=== PATIENT | male | born 1955 | race Caucasian/White ===

== ENCOUNTER 2025-01-14 14:09 | Emergency (ER) | payer MEDICARE, SELFPAY ==
[2025-01-14 14:09] VITALS: BP 124/85; PULSE 66; RESP 16; TEMP 35.7; O2SAT 100; BMI 28.8
--- NOTE | 2025-01-14 14:25 | EDS_ITS ---
HPI History of Present Illness Chief Complaint: Upper Extremity Injury Narrative Narrative: Patient is a 69-year-old male with no known significant past medical history who presents to the emergency department chief complaint of right hand injury. He states that he was splitting wood and his hand got caught between 2 pieces of wood and notes that he went to urgent care and they sent him here as there was concern for a tendon injury. Patient states that he had gloves on and states t hat his hand was caught between 2 pieces of wood did not come in contact with metal. He states he is unsure when his last tetanus shot was. PFSH PFSH Home Medications ?Medication ?Instructions ?Recorded ?Last Taken ?Type meclizine 25 mg tablet 25 mg PO TID PRN PRN Dizzine ss #20 04/16/14 Unknown Rx tabs cephalexin 500 mg capsule 500 mg PO BID #14 caps 01/14 Unknown Rx ondansetron 4 mg disintegrating 4 mg PO Q6H PRN nausea and 01/14/25 Unknown Rx tablet vomiting #20 tabs oxycodone-acetaminophen 5 mg-325 1 tab PO Q6H PRN pain 2 days #8 01/14/25 Unknown Rx mg tablet (Endocet) tabs Allergy/AdvReac Type Severity Reaction Status Date / Time No Known Allergies Allergy Verified 04/16/14 11:44 Social History Smoking Status: Never smoker ROS ROS ED ROS Narrative Neurological: Denies any numbness, tingling Musculoskeletal: Complains of wound to the right hand as noted above and inability to flex his pinky EXAM Physical Exam Narrative Exam Narrative: General: Patient sitting at the end of the bed rest comfortably did not appear to be in acute distress Head: Atraumatic, normocephalic Eyes: PERRL bilaterally, EOMI bilateral, no conjunctival injection noted Neck: Soft, supple, trachea midline Cardiovascular: Regular rate Musculoskeletal: Patient able to flex his right pinky finger at the proximal interphalangeal joint however he is unable to flex the distal interphalangeal joint Extremities: Radial pulses +2/4 in the right upper extremity Neurological: Patient follow commands knew that he was at [facility] with sensation grossly intact in the median, ulnar and radial nerve distribution when compared bilaterally Skin: Warm, dry, patient has a complex laceration noted in between his 4th and 5th finger on the right side no active bleeding noted Const Vital Signs: 01/14/25 14:09 Temperature 96.3 F L Temperature Source Temporal Pulse Rate 66 Respiratory Rate 16 Blood Pressure 124/85 H Blood Pressure Mean 98 Pulse Ox 100 Oxygen Delivery Method Room Air MDM MDM MDM Narrative Medical decision making narrative: Patient is a 69-year-old male who presents to the emergency department chief complaint of right hand injury. On the differential diagnose includes but not limited to flexor tendon injury, hand laceration, open fracture. Once workup is obtained and reviewed he will be reevaluated. Patient's tetanus shot will be updated. Patient's x-ray of the hand reviewed myself and by radiology showed acute comminuted displaced fracture in the waist of the proximal fifth phalanx with soft tissue swelling and some tenderness in emphysema. Old healed fifth metacarpal and old ununited ulnar styloid fracture. No other acute fractures noted polyarticular arthrosis noted. Patient had laceration repaired see procedure note for separate details digital block was performed he tolerated this well. His finger was also reduced and was placed in a splint he remained neurovascular intact afterwards. I reached out to Dr. [facility] orthopedics and he states that he can see the patient first thing this week. Patient was given 2 g Ancef as well. Patient come back really room and told me that he cannot follow-up with [facility] orthoped[facility] as this is an insurance issue I reach out to [facility] for close follow-up and they state that since the patient has not followed up with them they need to call on Wednesday for an appointment. I discussed this with the patient he states that he will have contact his primary care physician and he will also have them help him get follow-up in the outpatient setting I state that he could still follow-up with [facility] if need be is there anywhere of his case. He will be placed on Keflex for as well. He is encouraged return with worsening symptoms or any concerns. He is vies keep the area dry and clean. Patient was also given prescriptions for Endocet and Zofran for severe pain he is also advised to rotate Tylenol and ibuprofen [id number] for mild to moderate pain. All question concerns answered is discharged home in stable condition Procedure note Procedure name: Laceration repair Indication: Reduce risk of infection Location: Complex laceration between his 4th and 5th finger on the right hand measuring approximately 3 cm Preprocedure diagnosis: Laceration Postprocedure diagnosis: Repaired laceration Informed consent was obtained prior to procedure started. Procedure: The appropriate timeout was taken. The area was prepped and draped in usual sterile fashion. Local anesthesia was achieved using 3 cc of lidocaine 1% without epinephrine digital block. Wound was copiously irrigated. 5 4-0 Ethilon interrupted sutures were placed. Estimated blood loss was less than 0.5 mL. Dressing was applied to the area and anticipatory guidance, as well as standard postprocedure care was explained. Return precautions are given. Patient Toller procedure well without any complications. Follow-up visit for suture removal and evaluation of laceration. Discharge Plan Triage Chief Complaint: Upper Extremity Injury ED Provider: Jono Guillen Dx/Rx/DC Orders Clinical Impression: Open displaced fracture of phalanx of right little finger, Complicated laceration of hand Prescriptions: New ondansetron 4 mg tablet,disintegrating 4 mg PO Q6H PRN (Reason: nausea and vomiting) Qty: 20 0RF oxycodone-acetaminophen [Endocet] 5-325 mg tablet 1 tab PO Q6H PRN (Reason: pain) 2 Days Qty: 8 0RF cephalexin 500 mg capsule 500 mg PO BID Qty: 14 0RF No Action meclizine 25 MG tablet 25 mg PO TID PRN PRN (Reason: Dizziness) Qty: 20 0RF Primary Care Provider: Issa Vidales Referrals: Issa Vidales MD [Primary Care Provider, Medical] Activity Restrictions/Additional Instructions: Follow-up with hand surgeon and if ultimately you cannot get into see someone follow-up with [facility] I did speak with a [facility] physician that is aware. Call your primary care physician tomorrow to see if they can help facilitate finding a hand surgeon that will take your insurance. You can also call [facility] tomorrow and see if you could potentially see Dr. Burton in the office for this as well. Take antibiotics as prescribed. Keep the area dry and clean. Return with worsening symptoms or concerns. Rotate Tylenol and ibuprofen [id number] when you do this you can take something every 3 hours for pain with a max dose of ibuprofen in 24 hours 3200 mg max dose of Tylenol 24 hours 4000 mg. Use the Endocet Zofran as prescribed do not operate anything under the influence of Endocet and use this for severe pain Print Language: Indian Disposition Disposition: Home, Self Care
--- NOTE | 2025-01-14 14:30 | RAD_ITS ---
PROCEDURE: HAND MIN 3 VIEWS 01/14/2025 REASON FOR EXAM: Acute pain after trauma TECHNIQUE: Procedure Code: FREDA Modality: DX Procedure: HAND MIN 3 VIEWS Laterality: Right COMPARISON: None FINDINGS: There is an acute, comminuted fracture in the waist of the proximal 5th phalanx with associated soft tissue swelling and subcutaneous emphysema. No other demonstrated acute fracture, there is an old healed 5th metacarpal fracture, and an old ununited ulnar styloid fracture. 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
--- OUTSIDE RECORDS SUMMARY | 2025-01-14 14:44 | XMS RPT_ITS | CCD ---
Author Organization [facility] Care Team Providers Care Steel Estimator Name Role Phone Nacho Abdullahi Unavailable Unavailable Flash SCRUGGS, Issa Stafford Primary Care Provider Issa Vidales MD Primary Care Provider Issa Vidales MD Primary Care Provider Neftali PAYROLL ACCOUNTANT.Annalisa COLINDRES Unavailable Benito PAYROLL ACCOUNTANT.Johanna COLINDRES Unavailable [phone] ISSA VIDALES Primary Care Unavailable BILLIE ACEVES Attending UnavailISSA Vigil Referring Unavailable ISSA VIDALES Primary Care Unavailable JOHANNA OLIVER Attending Unavailable ISSA VIDALES Referring Unavailable ISSA VIDALES Primary Care Unavailable ISSA VIDALES Primary Care Unavailable CASIE WILCOX Attending Unavailable ISSA VIDALES Primary Care Unavailable CASIE WILCOX Referring Unavailable CASIE WILCOX Attending Unavailable ISSA VIDALES Primary Care Unavailable BILLIE ACEVES Referring UnavailCASIE Scott Attending Unavailable ISSA VIDALES Primary Care Unavailable BILLIE ACEVES Referring Unavailab le Medications Current Medications Medication Drug Class(es) Dates Sig (Normalized) Sig (Original) aspirin 81 mg delayed release oral tablet (20 sources) Platelet Aggregation Inhibitor, Nonsteroidal Anti-inflammatory Drug Start: 01-05-2023 take 1 tablet by mouth once daily aspirin, enteric coated (ASPIRIN, ENTERIC COATED) 81 mg EC tablet Take 1 tablet by mouth once daily. 01/05/2023 Active Comment on above: Take 1 tablet by bang th once daily. multivitamin tablet (20 sources) take 1 tablet by mouth once daily multivitamin tablet Take 1 tablet by mouth once daily. Active take 1 tablet by mouth once nicole y multivitamin tablet Take 1 tablet by mouth once daily. 0 Active Comment on above: Take 1 tablet by bang th once daily. sildenafil 100 mg oral tablet (20 sources) Phosphodiesterase 5 Inhibitor Start: 01-15-2020 End: 01-11-2024 sildenafil (VIAGRA) 100 mg tablet Indications: ED (erectile dysfunction) of organic origin Take 1 tablet by mouth as needed. 6 tablet 11 01/11/2024 Active Comment on above: Take 1 tablet by bang th as needed. Completed/Discontinued Medications Medication Drug Class(es) Dates Sig (Normalized) Sig (Original) calcium chloride 0.0014 meq/ml / potassium chloride 0.004 meq/ml / sodium chloride 0.103 meq/ml / sodium lactate 0.028 meq/ml injectable solution (1 source) Start: 09-26-2024 End: 09-26-2024 take 30 mL intravenously every hour 30 mL/hr, INTRAVENOUS, CONTINUOUS, Starting on Wed09/26/24 at 1200, Until Wed09/26/24 at 1257, Preprocedure diphenhydrAMINE (1 source) Histamine-1 Receptor Antagonist Start: 09-26-2024 End: 09-26-2024 12.5-50 mg, INTRAVENOUS, DIRECTED, Starting on Wed09/26/24 at 1230, Until Wed09/26/24 at 1629, DOSING DIRECTED BY PHYSICIAN FOR PROCEDURAL SEDATION ONLY, Intraprocedure 1 ml fentaNYL 0.05 mg/ml injection (1 source) Opioid Agonist Start: 09-26-2024 End: 09-26-2024 25-100 mcg, INTRAVENOUS, DIRECTED, Starting on Wed09/26/24 at 1230, Until Wed09/26/24 at 1629, DOSING DIRECTED BY PHYSICIAN FOR PROCEDURAL SEDATION ONLY, Intraprocedure 5 ml midazolam 1 mg/ml injection (1 source) Benzodiazepine Start: 09-26-2024 End: 09-26-2024 1-5 mg, INTRAVENOUS, DIRECTED, Starting on Wed09/26/24 at 1230, Until Wed09/26/24 at 1629, DOSING DIRECTED BY PHYSICIAN FOR PROCEDURAL SEDATION ONLY, Intraprocedure polyethylene glycol 3350 685847 mg / potassium chloride 2970 mg / sodium bicarbonate 6740 mg / sodium chloride 5860 mg / sodium sulfate 93435 mg powder for oral solution (1 source) Osmotic Laxative Start: 09-04-2024 End: 09-04-2024 peg 3350-Electrolytes (GOLYTELY) 236-22.74-6.74 -5.86 gram suspension Indications: Screening for colon cancer Take 4,000 mL by mouth one time only for 1 dose. Refer to printed prep instructions from your provider. 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; Translations: [Primary osteoarthritis, left shoulder] Onset: 12-05-2013 12-05-2013 Chronic Other male genital disorders (3 sources) Secondary erectile dysfunction; Translations: [Male erectile dysfunction, unspecified] Chronic Residual codes; unclassified (1 source) Memory impairment; Translations: [Other amnesia] 01-18-2024 Episodic Spondylosis; intervertebral disc disorders; other back problems (20 sources) Degeneration of lumbar intervertebral disc; Translations: [Other intervertebral disc degeneration, lumbar region] Onset: 08-23-2023 08-02-2023 Chronic Thyroid disorders (20 sources) Multinodular goiter; Translations: [Nontoxic multinodular goiter] Onset: 11-26-2015 Chronic Past or Other Problems Problem Classification Problem Date Documented Da te Episodic/Chronic Conditions associated with dizziness or vertigo (20 sources) Dizziness and giddiness; Translations: [Dizziness and giddiness] Onset: 06-06-2014 Resolved: 01-16-2022 01-16-2022 Episodic Gastrointestinal hemorrhage (4 sources) Rectal hemorrhage; Translations: [Hemorrhage of anus and rectum] Onset: 08-30-2024 08-30-2024 Episodic Hemorrhoids (5 sources) External hemorrhoids; Translations: [Residual hemorrhoidal skin tags] Onset: 08-30-2024 08-30-2024 Episodic Immunizations and screening for infectious disease (20 sources) Patient encounter status; Translations: [Encounter for immunization] Onset: 01-18-2024 Episodic Joint disorders and dislocations; trauma-related (20 sources) Acute meniscal tear, medial; Translations: [Complex tear of medial meniscus, current injury, right knee, initial encounter] Onset: 07-16-2015 07-16-2015 Episodic Other congenital anomalies (20 sources) Congenital anomaly of skin; Translations: [Other specified congenital malformations of skin] Onset: 09-14-2008 Resolved: 01-16-2022 01-16-2022 Chronic Other connective tissue disease (20 sources) Plantar fascial fibromatosis; Translations: [Plantar fascial fibromatosis] Onset: 10-11-2007 10-11-2007 Episodic Other connective tissue disease (20 sources) Pain in limb; Translations: [Pain in unspecified limb] Onset: 09-14-2008 Resolved: 07-15-2020 07-15-2020 Episodic Other nervous system disorders (2 sources) Other symptoms and signs involving cognitive functions and awareness; Translations: [Other signs and symptoms involving cognition] Onset: 01-18-2024 01-18-2024 Episodic Other non-traumatic joint disorders (20 sources) Soft tissue lesion of shoulder region; Translations: [Other specified joint disorders, unspecified shoulder] Onset: 01-04-2007 01-04-2007 Episodic Other non-traumatic joint disorders (20 sources) Pain in right knee; Translations: [Pain in joint, lower leg] Onset: 07-16-2015 Resolved: 01-16-2022 01-16-2022 Episodic Other non-traumatic joint disorders (20 sources) Chronic pain of left upper limb; Translations: [Pain in left shoulder] Onset: 04-08-2017 Resolved: 01-16-2022 01-16-2022 Episodic Other screening for suspected conditions (not mental disorders or infectious disease) (5 sources) Encounter for screening for cardiovascular disorders; Translations: [Encounter for screening for lipoid disorders] Onset: 01-18-2024 Episodic Residual codes; unclassified (20 sources) Family history of prostate cancer; Translations: [Family history of malignant neoplasm of prostate] Onset: 01-16-2022 Episodic Residual codes; unclassified (1 source) Other amnesia; Translations: [Memory changes] Onset: 01-18-2024 Episodic Screening and history of mental health and substance abuse codes (2 sources) Encounter for screening for depression; Translations: [Encounter for screening examination for other mental health and behavioral disorders] Onset: 01-18-2024 Episodic Spondylosis; intervertebral disc disorders; other back problems (20 sources) Low back pain; Translations: [Right-sided low back pain without sciatica, unspecified chronicity] Onset: 09-22-2022 Episodic Unclassified (2 sources) Patient encounter status 09-06-2024 Results Test Name Value Interpretation Reference Range Facility [facility] CAMERON FORBES ([id number]) 1955 Date Time Provider Department 09/27/24 CASIE WILCOX During your visit today, we recorded the following information about you: Serina Santizo MA 09/27/2024 9:57 AM Signed Patient had colonoscopy completed yesterday by Dr. Wilcox. He called in asking when he is to follow up? Patient can be reached back at [phone]. Funmilayo Lyn RN 09/27/2024 10:10 AM Signed Contacted patient who had many questions following colonoscopy. This Nurse advised there was no specimens taken, therefore no follow up appointment was made. Pt would like a follow up appointment with Dr. Wilcox, declined appointment with Rachael Campos NP. Advised patient someone would reach out to schedule an provider phone call with Dr. Wilcox. Funmilayo Lyn RN Allergies As of Date: 09/27/2024 (No Known Allergies) Date Reviewed: 09/26/2024 Reviewed by: Leila Shannon RN - Fully Assessed Reason for Visit: Patient Question [3644] Prescriptions as of 10/04/2024 - sildenafil (VIAGRA) 100 mg tablet Take 1 tablet by mouth as needed. - aspirin, enteric coated (ASPIRIN, ENTERIC COATED) 81 mg EC tablet Take 1 tablet by mouth once daily. - multivitamin tablet Take 1 tablet by mouth once daily. Problem List As Of Date 09/27/2024 Noted Resolved SHOULDER REGION DIS NEC [M25.819] 01/04/2007 plantar fasciitis [M72.2] 10/11/2007 Pain in limb [M79.609] 09/14/2008 07/15/2020 Other specified congenital anomaly of skin [Q82*09/14/2008 01/16/2022 Routine general medical examination at [facility]*10/06/2010 07/08/2012 Class: Chronic Diverticulosis of colon without diverticulitis * Arthritis of shoulder region, left [M19.012] 12/05/2013 Dizziness and giddiness [R42] 06/06/2014 01/16/2022 Complex tear of medial meniscus of right knee a*07/16/2015 Chronic pain of right knee [M25.561, G89.29] 07/16/2015 01/16/2022 Multiple thyroid nodules [E04.2] 11/26/2015 Chronic left shoulder pain [M25.512, G89.29] 04/08/2017 01/16/2022 Family history of prostate cancer [Z80.42] 01/16/2022 Chronic right-sided low back pain without sciat*09/22/2022 Degeneration of lumbar intervertebral disc [M51*08/23/2023 Encounter Status:Closed by SERINA SANTIZO on 10/04/24 [facility] [id number] 09-26-2024 [id number] HNO ID: [id number] Author: LEILA SHANNON RN Service: ? Author Type: Registered Nurse Type: [id number] Filed: 09/26/2024 12:59 Note Text: The patient received a copy of Colonoscopy discharge instructions that contain information for how to contact the physician who performed the procedure and when to seek medical care. [facility] Colonoscopyon 09-26-2024 Colonoscopy [place] Gastrointestinal Endoscopy Patient Name: Cameron Forbes Procedure Date: 09/26/2024 12:10 PM Date of : 1955 Admit Type: Outpatient Age: 69 Gender: Male Note Status: Finalized Procedure: Colonoscopy Indications: Screening for colorectal malignant neoplasm Providers: Casie Wilcox MD Patient Profile: Refer to note in patient chart for documentation of history and physical. Last Colonoscopy: none. The patient's first colonoscopy is today. Referring Physician: Casie Wilcox MD (Referring MD) Medicines: Midazolam 5 mg IV, Fentanyl 50 micrograms IV, Diphenhydramine 50 mg IV Complications: No immediate complications. Requesting Provider: Procedure: Pre-Anesthesia Assessment: - Prior to the procedure, a History and Physical was performed, and patient medications and allergies were reviewed. The patient is competent. The risks and benefits of the procedure and the sedation options and risks were discussed with the patient. All questions were answered and informed consent was obtained. Patient identification and proposed procedure were verified by the physician in the pre-procedure area. Mental Status Examination: alert and oriented. Airway Examination: normal oropharyngeal airway and neck mobility. Respiratory Examination: clear to auscultation. CV Examination: normal. Prophylactic Antibiotics: The patient does not require prophylactic antibiotics. Prior Anticoagulants: The patient has taken no anticoagulant or antiplatelet agents. ASA Grade Assessment: II - A patient with mild systemic disease. After reviewing the risks and benefits, the patient was deemed in satisfactory condition to undergo the procedure. The anesthesia plan was to use moderate sedation / analgesia (conscious sedation). Immediately prior to administration of medications, the patient was re-assessed for adequacy to receive sedatives. The heart rate, respiratory rate, oxygen saturations, blood pressure, adequacy of pulmonary ventilation, and response to care were monitored throughout the procedure. The physical status of the patient was re-assessed after the procedure. After I obtained informed consent, the scope was passed under direct vision. Throughout the procedure, the patient's blood pressure, pulse, and oxygen saturations were monitored continuously. The Colonoscope was introduced through the anus and advanced to the cecum, identified by the appendiceal orifice, ileocecal valve and palpation. The colonoscopy was performed without difficulty. The patient tolerated the procedure well. The quality of the bowel preparation was adequate. The appendiceal orifice and the rectum were photographed. Moderate Sedation: The administration of moderate sedation was initiated at 11:42. Moderate (conscious) sedation was personally administered by the endoscopist. The following parameters were monitored: oxygen saturation, heart rate, blood pressure, respiratory rate, EKG, adequacy of pulmonary ventilation, and response to care. Total physician intraservice time was 18 minutes. Findings: The perianal and digital rectal examinations were normal. Non-bleeding internal hemorrhoids were found. Impression: - Non-bleeding internal hemorrhoids. - No specimens collected. Recommendation: - Repeat colonoscopy in 10 years for screening purposes. - Return to primary care physician PRN. - Patient has a contact number available for emergencies. The signs and symptoms of potential delayed complications were discussed with the patient. Return to normal activities tomorrow. Written discharge instructions were provided to the patient. - Continue present medications. - Resume previous diet. Procedure Code(s): --- Professional --- G0121, Colorectal cancer screening; colonoscopy on individual not meeting criteria for high risk G0500, Moderate sedation services provided by the same physician or other qualified health long term acute care registered nurse performing a gastrointestinal endoscopic service that sedation supports, requiring the presence of an independent trained observer to assist in the monitoring of the patient's level of consciousness and physiological status; initial 15 minutes of intra-service time; patient age 5 years or older (additional time may be reported with 14036, as appropriate) Diagnosis Code(s): --- Professional --- K64.8, Other hemorrhoids Z12.11, Encounter for screening for malignant neoplasm of colon CPT copyright 2020 [employer]. All rights reserved. The codes documented in this report are preliminary and upon photographer apprentice lithographic review may be revised to meet current compliance requirements. Attending Participation: I personally performed the entire procedure. Scope In: 12:21:01 PM Scope Out: 12:39:17 PM MD Casie Abraham MD 09/26/2024 12:42:37 PM This report has been signed electronically by L (more content not included)... [facility] Colonoscopy Study observatio non 09-26-2024 [facility] Gastrointestinal Endoscopy Patient Name: Cameron Forbes Procedure Date: 09/26/2024 12:10 PM Date of : 1955 Admit Type: Outpatient Age: 69 Gender: Male Note Status: Finalized Procedure: Colonoscopy Indications: Screening for colorectal malignant neoplasm Providers: Casie Wilcox MD Patient Profile: Refer to note in patient chart for documentation of history and physical. Last Colonoscopy: none. The patient's first colonoscopy is today. Referring Physician: Casie Wilcox MD (Referring MD) Medicines: Midazolam 5 mg IV, Fentanyl 50 micrograms IV, Diphenhydramine 50 mg IV Complications: No immediate complications. Requesting Provider: Procedure: Pre-Anesthesia Assessment: - Prior to the procedure, a History and Physical was performed, and patient medications and allergies were reviewed. The patient is competent. The risks and benefits of the procedure and the sedation options and risks were discussed with the patient. All questions were answered and informed consent was obtained. Patient identification and proposed procedure were verified by the physician in the pre-procedure area. Mental Status Examination: alert and oriented. Airway Examination: normal oropharyngeal airway and neck mobility. Respiratory Examination: clear to auscultation. CV Examination: normal. Prophylactic Antibiotics: The patient does not require prophylactic antibiotics. Prior Anticoagulants: The patient has taken no anticoagulant or antiplatelet agents. ASA Grade Assessment: II - A patient with mild systemic disease. After reviewing the risks and benefits, the patient was deemed in satisfactory condition to undergo the procedure. The anesthesia plan was to use moderate sedation / analgesia (conscious sedation). Immediately prior to administration of medications, the patient was re-assessed for adequacy to receive sedatives. The heart rate, respiratory rate, oxygen saturations, blood pressure, adequacy of pulmonary ventilation, and response to care were monitored throughout the procedure. The physical status of the patient was re-assessed after the procedure. After I obtained informed consent, the scope was passed under direct vision. Throughout the procedure, the patient's blood pressure, pulse, and oxygen saturations were monitored continuously. The Colonoscope was introduced through the anus and advanced to the cecum, identified by the appendiceal orifice, ileocecal valve and palpation. The colonoscopy was performed without difficulty. The patient tolerated the procedure well. The quality of the bowel preparation was adequate. The appendiceal orifice and the rectum were photographed. Moderate Sedation: The administration of moderate sedation was initiated at 11:42. Moderate (conscious) sedation was personally administered by the endoscopist. The following parameters were monitored: oxygen saturation, heart rate, blood pressure, respiratory rate, EKG, adequacy of pulmonary ventilation, and response to care. Total physician intraservice time was 18 minutes. Findings: The perianal and digital rectal examinations were normal. Non-bleeding internal hemorrhoids were found. Impression: - Non-bleeding internal hemorrhoids. - No specimens collected. Recommendation: - Repeat colonoscopy in 10 years for screening purposes. - Return to primary care physician PRN. - Patient has a contact number available for emergencies. The signs and symptoms of potential delayed complications were discussed with the patient. Return to normal activities tomorrow. Written discharge instructions were provided to the (more content not included)... PR[facility]ATION [facility] Radiology Study observation (narrative) [facility] HISTORY PHYSICALon HISTORY PHYSICAL HNO ID: [id number] Author: CASIE WILCOX MD Service: General Surgery Author Type: Physician Type: H&P Filed: 09/26/2024 11:32 Note Text: HISTORY AND PHYSICAL Cameron Forbes 1955 REFERRING PHYSICIAN: Billie Aceves,* CHIEF COMPLAINT: Consult HPI: The patient is a 69 year old male referred for endoscopy. Cameron notes occasional blood in his stools He denies chronic abdominal pain. He denies changes in bowel habits. He denies unusual weight loss. He notes no immediate family members with colon cancer. He last had a colonoscopy in 2014. PAST MEDICAL HISTORY PAST MEDICAL HISTORY Diagnosis Date Cognitive changes DDD (degenerative disc disease), lumbar Diverticulosis of colon (without mention of hemorrhage) Elevated LDL cholesterol level Internal hemorrhoids without mention of complication PAST SURGICAL HISTORY PAST SURGICAL HISTORY Procedure Laterality Date COLONOSCOPY FLX DX W/COLLJ SPEC WHEN PFRMD 10/05/2005 Colonoscopy COLONOSCOPY FLX DX W/COLLJ SPEC WHEN PFRMD N/A 12/17/2014 Colonoscopy to repeat in 10 years PAST SURGICAL HISTORY OF age early 20's hemorrhoid surgery SIGMOIDOSCOPY FLX DX W/COLLJ SPEC BR/WA IF PFRMD 03/10/1999 Sigmoidoscopy CURRENT MEDICATIONS Current Outpatient Medications Medication Sig sildenafil (VIAGRA) 100 mg tablet Take 1 tablet by mouth as needed. aspirin, enteric coated (ASPIRIN, ENTERIC COATED) 81 mg EC tablet Take 1 tablet by mouth once daily. multivitamin tablet Take 1 tablet by mouth once daily. peg 3350-Electrolytes (GOLYTELY) 236-22.74-6.74 -5.86 gram suspension Take 4,000 mL by mouth one time only for 1 dose. Refer to printed prep instructions from your provider. No current facility-administered medications for this visit. ALLERGIES: Patient has no known allergies. PERSONAL HISTORY: SOCIAL HISTORY Social History Tobacco Use Smoking status: Never Smokeless tobacco: Never Vaping Use Vaping status: Never Used Substance Use Topics Alcohol use: Yes Comment: RARELY Drug use: Never FAMILY HISTORY FAMILY HISTORY Problem Relation Age of Onset Hypertension Mother Ischemic Heart Disease Mother late 60's, [place] 86 Hypertension Father other (benign breast tumors) Sister No Known Problems Sister Breast Cancer Sister Prostate Cancer Brother Coronary Artery Disease Brother Hyperlipidemia Brother No Known Problems Maternal Grandmother No Known Problems Maternal Grandfather No Known Problems Paternal Grandmother No Known Problems Paternal Grandfather Ischemic Heart Disease Paternal Uncle age 50-51 Colon Cancer Other none Prostate Cancer Other none REVIEW OF SYSTEMS: General: The patient denies fatigue, denies weight loss, denies weight gain, denies feeling hot, and denies feelings of cold. Eyes: The patient denies glaucoma, denies eye injury/surgery, wears glasses or contacts. Ear/Nose/Throat: The patient denies allergies, denies hayfever, denies ear infections, and denies bloody noses. Cardiovascular: The patient denies chest pain, denies heart disease, denies high blood pressure,denies cardiac stent, denies prior heart attack, denies irregular heart beat, notes high cholesterol, denies poor circulation, denies heart failure, other cardiac issues, denies claudication, denies cold feet, denies peripheral arterial stent. Respiratory: The patient denies tuberculosis, denies pneumonia, denies frequent cough, denies pulmonary embolism, denies shortness of breath, and denies coughing up blood. Gastrointestinal: The patient denies difficulty swallowing, denies acid reflux, denies ulcers, denies vomiting, denies jaundice/hepatitis, denies gallbladder problems, denies black or tarry stools, denies hemorrhoids, denies bleeding from rectum, denies diverticulitis, denies constipation, denies diarrhea, denies loss of stool control, and denies hernias. Kidney/Bladder: The patient denies kidney stones, denies urine infections, and denies bloody urine. Skin: The patient denies a history of skin cancer, denies bleeding/changing moles, and denies a history of skin rash. Neurologic: The patient denies a history of epilepsy/convulsions, denies headaches, denies head/spinal injuries, and denies stroke/TIA. Psychiatric: The patient denies psychiatric medications, denies depression, and denies voices, denies substance abuse. Endocrine: The patient denies thyroid disorders, denies diabetes, and denies hormonal problems. Hematologic: The patient denies a history of bruising, denies bleeding, and denies anemia, denies blood clots. Infections: The patient denies a history of measles and mumps, denies rheumatic fever, and denies sexually transmitted diseases. Musculoskeletal: The patient denies back pain/injury, denies back problems, denies sciatica, denies knee/foot trouble, denies arthritis, or denies go PHYSICAL EXAMINATION: General: The patient is 69 year old (more content not included)... [facility] CNOVon 09-04-2024 CNOV Office Visit (REID ) CAMERON FORBES ([id number]) 1955 M Date Time Provider Department 09/04/24 10:45 AM CASIE WILCOX During your visit today, we recorded the following information about you: Temperature Pulse Respiration Blood pressure 97.9 degrees 76/minute 14/minute 116/72 Weight Height 86.2 kg 1.753 m Portia Toledo LPN 09/06/2024 11:33 AM Signed REVIEW OF SYSTEMS: General: The patient denies fatigue, denies weight loss, denies weight gain, denies feeling hot, and denies feelings of cold. Eyes: The patient denies glaucoma, denies eye injury/surgery, wears glasses or contacts. Ear/Nose/Throat: The patient denies allergies, denies hayfever, denies ear infections, and denies bloody noses. Cardiovascular: The patient denies chest pain, denies heart disease, denies high blood pressure,denies cardiac stent, denies prior heart attack, denies irregular heart beat, notes high cholesterol, denies poor circulation, denies heart failure, other cardiac issues, denies claudication, denies cold feet, denies peripheral arterial stent. Respiratory: The patient denies tuberculosis, denies pneumonia, denies frequent cough, denies pulmonary embolism, denies shortness of breath, and denies coughing up blood. Gastrointestinal: The patient denies difficulty swallowing, denies acid reflux, denies ulcers, denies vomiting, denies jaundice/hepatitis, denies gallbladder problems, denies black or tarry stools, denies hemorrhoids, denies bleeding from rectum, denies diverticulitis, denies constipation, denies diarrhea, denies loss of stool control, and denies hernias. Kidney/Bladder: The patient denies kidney stones, denies urine infections, and denies bloody urine. Skin: The patient denies a history of skin cancer, denies bleeding/changing moles, and denies a history of skin rash. Neurologic: The patient denies a history of epilepsy/convulsions, denies headaches, denies head/spinal injuries, and denies stroke/TIA. Psychiatric: The patient denies psychiatric medications, denies depression, and denies voices, denies substance abuse. Endocrine: The patient denies thyroid disorders, denies diabetes, and denies hormonal problems. Hematologic: The patient denies a history of bruising, denies bleeding, and denies anemia, denies blood clots. Infections: The patient denies a history of measles and mumps, denies rheumatic fever, and denies sexually transmitted diseases. Musculoskeletal: The patient denies back pain/injury, denies back problems, denies sciatica, denies knee/foot trouble, denies arthritis, or denies gout. When was patient's last Mammogram screening? N/A Last Colonoscopy: 11/2014 HUMBERTO Haynes, Casie De La Torre MD 09/04/2024 11:06 AM Addendum COLONOSCOPY BOWEL PREPARATION INSTRUCTIONS GOLYTELY/NULYTELY/TRILYTE/CO LYTE Your doctor has scheduled you for a colonoscopy. To have a successful colonoscopy, you must have a clean colon, that is empty. A clean colon allows your doctor to see the entire colon AND diagnose issues like polyps or cancer. For doctors, a clean colon is like driving on a judi day; a dirty colon like driving in a storm. It is very important that you follow these instructions exactly, or your colonoscopy might not be as effective, could be canceled, and you may need to do the bowel prep and the colonoscopy again. TRANSPORTATION REQUIREMENTS You are receiving IV sedation. For your safety, a responsible adult escort must accompany you to and from your procedure: Your adult escort MUST be present with you at check-in for your colonoscopy. Your adult escort MUST remain in the endoscopy area until you are discharged. Your adult escort MUST transport you home once you are discharged. You are NOT allowed to operate any form of transportation (i.e. drive a car, bicycle, etc.) or leave the Endoscopy Center ALONE. It is not safe to do so. If you cannot meet these requirements, your procedure will be canceled. MEDICATION REQUIREMENTS For your safety, certain medications will need to be stopped or adjusted before you can have your procedure: BLOOD THINNERS: If you take blood thinners, such as Coumadin (warfarin), Plavix (clopidogrel), Ticlid (ticlopidine hydrochloride), Agrylin (anagrelide), Xarelto (Rivaroxaban), Pradaxa (Dabigatran), Eliquis (Apixaban), or Effient (Prasugrel), contact the physician who is prescribing these medications at least 2 weeks prior to your procedure to discuss any necessary adjustments. DIABETES: If you take medications for diabetes, your dosage may need to be adjusted. If you are being treated for diabetes with insulin, diabetic pills, or other injectable medications do not take your REGULAR dose after midnight on the day of your procedure. If you are taking any other types of insulin such as Lantus, Humalog, NPH (long-acting insul (more content not included)... [facility] Hemoccult Stl Ql IAon 2024 Lower GI hemoglobin IA Ql (Stl) Positive Abnormal Negative [facility] Comment on above: Order Comment: Speci men Type: STOOL SPECIMENOrdering Facility: [facility] Address: [address] [place] [address] Performed By: #### 2 9771-3 ####[facility] LABCLIA [id number] [place] [address] [place] CBC W Auto Differential pane l (Bld)on 08-30-2024 Basophils (Bld) [#/Vol] 0.06 10*3/uL [facility] Basophils/100 WBC (Bld) 0.7 % [facility] Differential cell count method Nom (Bld) Auto [facility] Eosinophils (Bld) [#/Vol] 0.15 10*3/uL [facility] Eosinophils/100 WBC (Bld) 1.7 % [facility] Erythrocyte distribution width (RBC) [Ratio] 12.9 % 11.5 - 15.0 % [facility] Hematocrit (Bld) [Volume fraction] 46 % 39.0 - 51.0 % [facility] Hemoglobin (Bld) [Mass/Vol] 15.9 g/dL 13.0 - 17.0 g/dL [facility] Immature granulocytes (Bld) [#/Vol] [facility] Immature granulocytes/100 WBC (Bld) 0.2 % [facility] Interpretation and review of laboratory results Abnormal [facility] Lymphocytes (Bld) [#/Vol] 1.55 10*3/uL [facility] Lymphocytes/100 WBC (Bld) 17.1 % [facility] MCH (RBC) [Entitic mass] 30.8 pg 26.0 - 34.0 pg [facility] MCHC (RBC) [Mass/Vol] 34.6 g/dL 30.5 - 36.0 g/dL [facility] MCV (RBC) [Entitic vol] 89 fL 80.0 - 100.0 fL [facility] Monocytes (Bld) [#/Vol] 0.97 10*3/uL High [facility] Monocytes/100 WBC (Bld) 10.7 % [facility] Neutrophils (Bld) [#/Vol] 6.31 10*3/uL [facility] Neutrophils/100 WBC (Bld) 69.6 % [facility] Nucleated RBC (Bld) [#/Vol] [facility] Nucleated RBC/100 WBC (Bld) [Ratio] 0 % /100 WBC [facility] Platelet mean volume (Bld) [Entitic vol] 9.4 fL 9.0 - 12.7 fL [facility] Platelets (Bld) [#/Vol] 321 10*3/uL [facility] RBC (Bld) [#/Vol] 5.17 10*6/uL 4.20 - 6.0 0 m/uL [facility] WBC (Bld) [#/Vol] 9.06 10*3/uL [facility] Basophils (Bld) [#/Vol] 0.06 10*3/uL Normal <0.11 [facility] Comment on above: Order Comment: Speci men Type: BLOOD SPECIMENOrdering Facility: [facility] Address: [address] [place] [address] Performed By: #### 5 7021-8, 7 ####[facility] LABCLIA [id number] [place] [address] [place] Basophils/100 WBC (Bld) 0.7 % [facility] Comment on above: Order Comment: Speci men Type: BLOOD SPECIMENOrdering Facility: [facility] Address: [address] [place] [address] Performed By: #### 5 7021-8, 7 ####[facility] LABCLIA [id number] [place] [address] [place] Differential cell count method Nom (Bld) Auto Normal [facility] Comment on above: Order Comment: Speci men Type: BLOOD SPECIMENOrdering Facility: [facility] Address: [address] [place] [address] Performed By: #### 5 7021-8, 7 ####[facility] LABCLIA [id number] [place] [address] [place] Eosinophils (Bld) [#/Vol] 0.15 10*3/uL Normal <0.46 [facility] Comment on above: Order Comment: Speci men Type: BLOOD SPECIMENOrdering Facility: [facility] Address: [address] [place] [address] Performed By: #### 5 7021-8, 4536-08 ####[facility] LABCLIA [id number] [place] [address] [place] Eosinophils/100 WBC (Bld) 1.7 % [facility] Comment on above: Order Comment: Speci men Type: BLOOD SPECIMENOrdering Facility: [facility] Address: [address] [place] [address] Performed By: #### 5 7021-8, 4536-08 ####[facility] LABCLIA [id number] [place] [address] [place] Erythrocyte distribution width (RBC) [Ratio] 12.9 % Normal 11.5-15.0 [facility] Comment on above: Order Comment: Speci men Type: BLOOD SPECIMENOrdering Facility: [facility] Address: [address] [place] [address] Performed By: #### 5 7021-8, 4537-7 ####[facility] LABCLIA [id number] [place] [address] [place] Hematocrit (Bld) [Volume fraction] 46.0 % Normal 39.0-51.0 [facility] Comment on above: Order Comment: Speci men Type: BLOOD SPECIMENOrdering Facility: [facility] Address: [address] [place] [address] Performed By: #### 5 7021-8, 4537-7 ####[facility] LABIA [id number] [place] [address] [place] Hemoglobin (Bld) [Mass/Vol] 15.9 g/dL Normal 13.0-17.0 [facility] Comment on above: Order Comment: Speci men Type: BLOOD SPECIMENOrdering Facility: [facility] Address: [address] [place] [address] Performed By: #### 5 7021-8, 4537-7 ####[facility] LABIA [id number] [place] [address] [place] Immature granulocytes (Bld) [#/Vol] 10*3/uL Normal <0.10 [facility] Comment on above: Order Comment: Speci men Type: BLOOD SPECIMENOrdering Facility: [facility] Address: [address] [place] [address] Performed By: #### 5 7021-8, 4537-7 ####[facility] LABIA [id number] [place] [address] [place] Immature granulocytes/100 WBC (Bld) 0.2 % [facility] Comment on above: Order Comment: Speci men Type: BLOOD SPECIMENOrdering Facility: [facility] Address: [address] [place] [address] Performed By: #### 5 7021-8, 4537-7 ####[facility] LABCLIA [id number] [place] [address] [place] Lymphocytes (Bld) [#/Vol] 1.55 10*3/uL Normal 1.00-4.00 [facility] Comment on above: Order Comment: Speci men Type: BLOOD SPECIMENOrdering Facility: [facility] Address: [address] [place] [address] Performed By: #### 5 7021-8, 453-7 ####[facility] LABCLIA [id number] [address] [place] Lymphocytes/100 WBC (Bld) 17.1 % [facility] Comment on above: Order Comment: Speci men Type: BLOOD SPECIMENOrdering Facility: [facility] Address: [address] [place] [address] Performed By: #### 5 7021-8, 4536-7 ####[facility] LABCLIA [id number] [place] [address] [place] MCH (RBC) [Entitic mass] 30.8 pg Normal 26.0-34.0 [facility] Comment on above: Order Comment: Speci men Type: BLOOD SPECIMENOrdering Facility: [facility] Address: [address] [place] [address] Performed By: #### 5 7021-8, 4536-7 ####[facility] LABCLIA [id number] [facility] [place] [address] [place] MCHC (RBC) [Mass/Vol] 34.6 g/dL Normal 30.5-36.0 [facility] Comment on above: Order Comment: Speci men Type: BLOOD SPECIMENOrdering Facility: [facility] Address: [address] [place] [address] Performed By: #### 5 7021-8, 4536-7 ####[facility] LABCLIA [id number] [place] [address] [place] MCV (RBC) [Entitic vol] 89.0 fL Normal 80.0-100.0 [facility] Comment on above: Order Comment: Speci men Type: BLOOD SPECIMENOrdering Facility: [facility] Address: [address] [place] [address] Performed By: #### 5 7021-8, 4536-7 ####[facility] LABCLIA [id number] [place] [address] [place] Monocytes (Bld) [#/Vol] 0.97 10*3/uL High <0.87 [facility] Comment on above: Order Comment: Speci men Type: BLOOD SPECIMENOrdering Facility: [facility] Address: [address] [place] [address] Performed By: #### 5 7021-8, 4536-7 ####[facility] LABCLIA [id number] [place] [address] [place] Monocytes/100 WBC (Bld) 10.7 % Normal [facility] Comment on above: Order Comment: Speci men Type: BLOOD SPECIMENOrdering Facility: [facility] Address: [address] [place] [address] Performed By: #### 5 7021-8, 4536-7 ####[facility] LABCLIA [id number] [place] [address] [place] Neutrophils (Bld) [#/Vol] 6.31 10*3/uL Normal 1.45-7.50 [facility] Comment on above: Order Comment: Speci men Type: BLOOD SPECIMENOrdering Facility: [facility] Address: [address] [place] [address] Performed By: #### 5 7021-8, 4536-7 ####[facility] LABCLIA [id number] [place] [address] [place] Neutrophils/100 WBC (Bld) 69.6 % Normal [facility] Comment on above: Order Comment: Speci men Type: BLOOD SPECIMENOrdering Facility: [facility] Address: [address] [place] [address] Performed By: #### 5 7021-8, 4536-7 ####[facility] LABCLIA [id number] [place] [address] [place] Nucleated RBC (Bld) [#/Vol] 10*3/uL Normal <0.01 [facility] Comment on above: Order Comment: Speci men Type: BLOOD SPECIMENOrdering Facility: [facility] Address: [address] [place] [address] Performed By: #### 5 7021-8, 4536-7 ####[facility] LABCLIA [id number] [place] [address] [place] Nucleated RBC/100 WBC (Bld) [Ratio] 0.0 /100 WBC Normal [facility] Comment on above: Order Comment: Speci men Type: BLOOD SPECIMENOrdering Facility: [facility] Address: [address] [place] [address] Performed By: #### 5 7021-8, 7 ####[facility] LABCLIA [id number] [place] [address] [place] Platelet mean volume (Bld) [Entitic vol] 9.4 fL Normal 9.0-12.7 [facility] Comment on above: Order Comment: Speci men Type: BLOOD SPECIMENOrdering Facility: [facility] Address: [address] [place] [address] Performed By: #### 5 7021-8, 4536-7 ####[facility] LABCLIA [id number] [place] [address] [place] Platelets (Bld) [#/Vol] 321 10*3/uL Normal 150-400 [facility] Comment on above: Order Comment: Speci men Type: BLOOD SPECIMENOrdering Facility: [facility] Address: [address] [place] [address] Performed By: #### 5 7021-8, 4537-7 ####[facility] [id number] [place] [address] [place] RBC (Bld) [#/Vol] 5.17 10*6/uL Normal 4.20-6.00 [facility] Comment on above: Order Comment: Speci men Type: BLOOD SPECIMENOrdering Facility: [facility] Address: [address] [place] [address] Performed By: #### 5 7021-8, 4537-7 ####[facility] [id number] [place] [address] [place] WBC (Bld) [#/Vol] 9.06 10*3/uL Normal 3.70-11.00 [facility] Comment on above: Order Comment: Speci men Type: BLOOD SPECIMENOrdering Facility: [facility] Address: [address] [place] [address] Performed By: #### 5 7021-8, 4537-7 ####[facility] [id number] [place] [id number] [place] CNOVon 08-30-2024 CNOV Office Visit (FAMPWS ) CAMERON FORBES ([id number]) 1955 M Date Time Provider Department 08/30/24 10:00 AM BILLIE ACEVES During your visit today, we recorded the following information about you: Pulse Blood pressure Weight Height 89/minute 124/70 85.6 kg 1.765 m Billie Aceves MD 08/30/2024 10:30 AM Signed Chief Complaint Patient presents with: Rectal Bleeding: Intermittent rectal bleeding X 3 months. Hx of Hemorrhoids. Recording using [employer] software for draft documentation of the visit was discussed with the patient/authorized lifeline representatives; all questions welcomed and answered. Patient/authorized lifeline representatives agreed to proceed HPI Cameron Forbes is a 69 year old male who presents here today for Above Complaints. Hematochezia: - Noticed bright red blood in stool x3 months. - Occurs approximately once a week, described as a couple drops on the stool. - No blood on toilet paper or in toilet bowl. - Denies melena, hematemesis, hematochezia, or hematuria. - No associated abdominal pain, diarrhea, or constipation. - No recent SOB, lightheadedness, or dizziness. - No recent epistaxis or bleeding gums. - Nocticed pruritus ani, but denies feeling hemorrhoids or lumps. - PMHx of hemorrhoids, with first episode ~50 years ago, treated with cauterization. - Denies current hemorrhoid symptoms. - Last colonoscopy in 2014; next one due in November. - Family history of Crohn's disease in nephew. - Diet includes high intake of fruits and vegetables. - Previously used psyllium fiber supplements; switched to Metamucil ~2 months ago, then stopped due to suspected association with bleeding. Past medical history, appointments, medications, allergies reviewed. Previous Medical History PAST MEDICAL HISTORY Diagnosis Date Diverticulosis of colon (without mention of hemorrhage) Internal hemorrhoids without mention of complication Previous Surgical History PAST SURGICAL HISTORY Procedure Laterality Date COLONOSCOPY FLX DX W/COLLJ SPEC WHEN PFRMD 10/05/2005 Colonoscopy COLONOSCOPY FLX DX W/COLLJ SPEC WHEN PFRMD N/A 12/17/2014 Colonoscopy to repeat in 10 years PAST SURGICAL HISTORY OF age early 20's hemorrhoid surgery SIGMOIDOSCOPY FLX DX W/COLLJ SPEC BR/WA IF PFRMD 03/10/1999 Sigmoidoscopy Family History FAMILY HISTORY Problem Relation Age of Onset Hypertension Mother Ischemic Heart Disease Mother late 60's, [place] 86 Hypertension Father other (benign breast tumors) Sister Breast Cancer Sister Prostate Cancer Brother Coronary Artery Disease Brother Hyperlipidemia Brother Ischemic Heart Disease Paternal Uncle age 50-51 Colon Cancer Other none Prostate Cancer Other none Patient Allergies ALLERGIES No Known Allergies Current Medications Current Outpatient Medications on File Prior to Visit Medication Sig sildenafil (VIAGRA) 100 mg tablet Take 1 tablet by mouth as needed. aspirin, enteric coated (ASPIRIN, ENTERIC COATED) 81 mg EC tablet Take 1 tablet by mouth once daily. multivitamin tablet Take 1 tablet by mouth once daily. No current facility-administered medications on file prior to visit. Social History Social History Tobacco Use Smoking status: Never Smokeless tobacco: Never Substance Use Topics Alcohol use: Yes Comment: RARELY Drug use: No Review of Symptoms REVIEW OF SYSTEMS See HPI EXAM: BP 124/70 Pulse 89 Ht 176.5 cm (5' 9.49) Wt 85.6 kg (188 lb 12.8 oz) SpO2 97% BMI 27.49 kg/m? General Appearance: Well appearing, alert, in no acute distress, well-hydrated, well nourished.. Skin: Skin color, texture, turgor normal, no suspicious rashes or lesions. Abdomen: Normal abdominal exam, Abdomen soft, non-tender. Bowel sounds normal. No masses, organomegaly. Rectal: Negative findings: anal sphincter tone normal, prostate and seminal vesicles non-tender without nodules, Positive findings: fleshy hemorrhoids at 12 and 3 o'clock without bleeding or thrombosis. Small internal hemorrhoids palpable at 6 o'clock. [facility] Maintenance List Medicare Advantage Annual Wellness Visit due on 03/01/2024 Covid-19 Vaccine( season) due on 01/17/2025 Influenza Vaccine(1) due on 10/30/2024 Colorectal Cancer Screening due on 12/17/2024 Depression Screening due on 01/17/2025 Anxiety Screening due on 01/17/2025 Diabetes Screening due on 01/05/2027 Lipid Screening due on 01/05/2029 RSV Vaccine(1 - 1-dose 75+ series) due on 05/24/2030 DTaP,Tdap,Td Vaccine(4 - Td or Tdap) due on 08/17/2031 Hepatitis C Screening Completed Shingrix Vaccine Completed Pneumococcal Vaccine: 50+ Completed Advance Directive Discussion Discontinued 1. Rectal bleeding (K62.5) 2. External hemorrhoids (K64.4) 3. Internal hemorrhoids (K64.8) - Occasional rectal bleeding noted, with bright red blood observed on stool (more content not included)... Normal [facility] CRP SerPl-mCncon 08-30-2024 CRP [Mass/Vol] mg/L Normal <0.9 [facility] Comment on above: Order Comment: Speci men Type: BLOOD SPECIMENOrdering Facility: [facility] Address: [address] [place] [address] Performed By: #### 2 4322-09, 1987-06 ####[facility] LABCLIA [id number] [address] [address] [place] Comprehensive metabolic 2000 panelon 08-30-2024 Albumin [Mass/Vol] 4.2 g/dL Normal 3.9-4.9 [facility] Comment on above: Order Comment: Speci men Type: BLOOD SPECIMENOrdering Facility: [facility] Address: [address] [place], [place] [address] Performed By: #### 2 4322-09, 1987-06 ####[facility] LABCLIA [id number] [address] [address] [place] ALP [Catalytic activity/Vol] 85 U/L Normal 38-113 [facility] Comment on above: Order Comment: Speci men Type: BLOOD SPECIMENOrdering Facility: [facility] Address: [address] [place] [address] Performed By: #### 2 4322-09, 1987-06 ####[facility] LABCLIA [id number] [address] [address] [place] ALT [Catalytic activity/Vol] 18 U/L Normal 10-54 [facility] Comment on above: Order Comment: Speci men Type: BLOOD SPECIMENOrdering Facility: [facility] Address: [address] [place] [address] Performed By: #### 2 4322-09, 1987-06 ####[facility] LABCLIA [id number] [facility] [address] [place] [address] [place] Anion gap [Moles/Vol] 12 mmol/L Normal 8-15 [facility] Comment on above: Order Comment: Speci men Type: BLOOD SPECIMENOrdering Facility: [facility] Address: [address] [place], [place] [address] Performed By: #### 2 43205-06, 1987-06 ####[facility] LABCLIA [id number] [facility] [address] [place] [address] [place] AST [Catalytic activity/Vol] 24 U/L Normal 14-40 [facility] Comment on above: Order Comment: Speci men Type: BLOOD SPECIMENOrdering Facility: [facility] Address: [address] [place], [place] [address] Performed By: #### 2 43205-06, 1987-06 ####[facility] LABCLIA [id number] [address] [place] [address] [place] Bilirubin [Mass/Vol] 0.5 mg/dL Normal 0.2-1.3 [facility] Comment on above: Order Comment: Speci men Type: BLOOD SPECIMENOrdering Facility: [facility] Address: [address] [place], [place] [address] Performed By: #### 2 43205-06, 1987-06 ####[facility] LABCLIA [id number] [address] [place] [address] [place] Calcium [Mass/Vol] 9.2 mg/dL Normal 8.5-10.2 [facility] Comment on above: Order Comment: Speci men Type: BLOOD SPECIMENOrdering Facility: [facility] Address: [address] [place] [address] Performed By: #### 2 43205-06, 1987-06 ####[facility] LABCLIA [id number] [facility] [address] [place] [address] [place] Chloride [Moles/Vol] 103 mmol/L Normal 98-107 [facility] Comment on above: Order Comment: Speci men Type: BLOOD SPECIMENOrdering Facility: [facility] Address: [address] [place], [place] [address] Performed By: #### 2 43205-06, 1987-06 ####[facility] LABIA [id number] [address] [address] [place] CO2 [Moles/Vol] 25 mmol/L Normal 22-30 [facility] Comment on above: Order Comment: Speci men Type: BLOOD SPECIMENOrdering Facility: [facility] Address: [address] [place] [address] Performed By: #### 2 4322-09, 1987-06 ####[facility] LABIA [id number] [address] [address] [place] Creatinine [Mass/Vol] 1.09 mg/dL Normal 0.73-1.22 [facility] Comment on above: Order Comment: Speci men Type: BLOOD SPECIMENOrdering Facility: [facility] Address: [address] [place] [address] Performed By: #### 2 4322-09, 1987-06 ####[facility] LABIA [id number] [address] [address] [place] Creatinine and Glomerular filtration rate.predicted panel (S/P/Bld) 73 mL/min/1.73m??? Normal >=60 [facility] Comment on above: Order Comment: Speci men Type: BLOOD SPECIMENOrdering Facility: [facility] Address: [address] [place] [address] Result Comment: Etelvina mated Glomerular Filtration Rate (eGFR) is calculated using the 2020 CKD-EPI creatinine equation. This equation utilizes serum creatinine, sex, and age as parameters. The creatinine assay has traceable calibration to isotope dilution-mass spectrometry. Refer to KDIGO guidelines for clinical interpretation. In patients with unstable renal function, e.g. those with acute kidney injury, the eGFR may not accurately reflect actual GFR. Performed By: #### 2 1987-06 ####[facility] LABIA [id number] [address] [address] [place] Glucose [Mass/Vol] 91 mg/dL Normal 74-99 [facility] Comment on above: Order Comment: Speci men Type: BLOOD SPECIMENOrdering Facility: [facility] Address: [address] [place], [place] [address] Result Comment: The [place] Diabetes Association (ADA) provides guidance for cutoff values for fasting glucose and random glucose. The ADA defines fasting as no caloric intake for at least 8 hours. Fasting plasma glucose results between 100 to 125 mg/dL indicate increased risk for diabetes (prediabetes). Fasting plasma glucose results greater than or equal to 126 mg/dL meet the criteria for diagnosis of diabetes. In the absence of unequivocal hyperglycemia, results should be confirmed by repeat testing. In a patient with classic symptoms of hyperglycemia or hyperglycemic crisis, random plasma glucose results greater than or equal to 200 mg/dL meet the criteria for diagnosis of diabetes. Reference: Standards of Medical Care in Diabetes 2016, [place] Diabetes Association. Diabetes Care. 2016.39(Suppl 1). Performed By: #### 2 4322-09, 1987-06 ####[facility] LABIA [id number] [address] [address] [place] Potassium [Moles/Vol] 4.4 mmol/L Normal 3.7-5.1 [facility] Comment on above: Order Comment: Speci men Type: BLOOD SPECIMENOrdering Facility: [facility] Address: [address] [place] [address] Performed By: #### 2 4322-09, 1987-06 ####[facility] LABIA [id number] [address] [address] [place] Protein [Mass/Vol] 6.7 g/dL Normal 6.3-8.0 [facility] Comment on above: Order Comment: Speci men Type: BLOOD SPECIMENOrdering Facility: [facility] Address: [address] [place] [address] Performed By: #### 2 4322-09, 1987-06 ####[facility] LABIA [id number] [place] [address] [place] Sodium [Moles/Vol] 140 mmol/L Normal 136-144 [facility] Comment on above: Order Comment: Speci men Type: BLOOD SPECIMENOrdering Facility: [facility] Address: [address] [place] [address] Performed By: #### 2 43238, 1987-06 ####[facility] LABIA [id number] [place] [address] [place] Urea nitrogen [Mass/Vol] 16 mg/dL Normal 9-24 [facility] Comment on above: Order Comment: Speci men Type: BLOOD SPECIMENOrdering Facility: [facility] Address: [address] [place] [address] Performed By: #### 2 4328, 1987-06 ####[facility] [id number] [place] [id number] [place] ESR Westergren method (Bld) [Velocity]on 08-30-2024 ESR (Bld) [Velocity] 8 mm/h Normal 0-15 [facility] Comment on above: Order Comment: Speci men Type: BLOOD SPECIMENOrdering Facility: [facility] Address: [address] [place] [address] Performed By: #### 5 7021-8, 4537-7 ####[facility] [id number] [place] [id number] [place] CNOVon 01-18-2024 CNOV Office Visit (FAMPWS ) CAMERON FORBES ([id number]) 1955 M Date Time Provider Department 01/18/24 11:00 AM JOHANNA OLIVER During your visit today, we recorded the following information about you: Pulse Blood pressure Weight 67/minute 128/78 86.6 kg Johanna Oliver APRN.CNP 01/18/2024 12:23 PM Signed Chief Reason For Appointment Patient presents with: Medicare Wellness Exam Cameron Forbes is a 68 year old male who presents for annual exam. Last office visit date: 08/02/2023 Accompanied By self only Have you had any critical events, hospital stays, ER visits, surgeries or procedures since your last visit here in our office: No Specialists/Other Healthcare Providers Seen: Patient Care Team: Issa Vidales MD as PCP - General (Family Medicine) Concerns today: None HPI Wellness visit Active Problems ACTIVE PROBLEM LIST Degeneration of Lumbar Intervertebral Disc - 08/23/2023 Chronic Right-Sided Low Back Pain Without Sciatica - 09/22/2022 Family History of Prostate Cancer - 01/16/2022 Comment: Brother-age 69 Multiple Thyroid Nodules - 11/26/2015 Comment: No further follow up required after 2020 ultrasound. Complex Tear of Medial Meniscus of Right Knee As Current Injury - 07/16/2015 Arthritis of Shoulder Region, Left - 12/05/2013 Diverticulosis of Colon Without Diverticulitis plantar fasciitis - 10/11/2007 Other Affections of Shoulder Region, Not Elsewhere Classified - 01/04/2007 ROS: REVIEW OF SYSTEMS GENERAL: No weight loss, malaise or fevers/chills HEENT: Negative for frequent or significant headaches, No changes in hearing or vision. NECK: Negative for lumps, goiter, pain and significant neck swelling RESPIRATORY: Negative for cough, hemoptysis, wheezing, dyspnea or shortness of breath CARDIOVASCULAR: Negative for chest pain, leg swelling, orthopnea, or palpitations GI: No nausea, vomiting, or diarrhea/constipation. No hematochezia/melena. No heartburn or reflux symptoms. : No history of dysuria, frequency or incontinence, up a couple times at night MUSCULOSKELETAL: Negative for joint pain or swelling. SKIN: Negative for lesions, rash, and itching ENDOCRINE: Negative for cold or heat intolerance, polyuria, polydipsia and goiter NEURO: No history of headaches, syncope, paralysis, seizures or tremors MOOD: Negative for depression, anxiety, or suicidal ideation. PAST MEDICAL HISTORY Diagnosis Date Diverticulosis of colon (without mention of hemorrhage) Internal hemorrhoids without mention of complication PAST SURGICAL HISTORY Procedure Laterality Date COLONOSCOPY FLX DX W/COLLJ SPEC WHEN PFRMD 10/05/2005 Colonoscopy COLONOSCOPY FLX DX W/COLLJ SPEC WHEN PFRMD N/A 12/17/2014 Colonoscopy to repeat in 10 years PAST SURGICAL HISTORY OF age early 20's hemorrhoid surgery SIGMOIDOSCOPY FLX DX W/COLLJ SPEC BR/WA IF PFRMD 03/10/1999 Sigmoidoscopy Medication List Current Outpatient Medications Medication Sig Dispense Refill sildenafil (VIAGRA) 100 mg tablet Take 1 tablet by mouth as needed. 6 tablet 11 aspirin, enteric coated (ASPIRIN, ENTERIC COATED) 81 mg EC tablet Take 1 tablet by mouth once daily. multivitamin tablet Take 1 tablet by mouth once daily. No current facility-administered medications for this visit. Weight Summary: Weight Change: Body mass index is 27.81 kg/m?. Last Wt 01/18/24 : 86.6 kg (191 lb) 08/02/23 : 85.7 kg (189 lb) 01/05/23 : 85.7 kg (189 lb) 01/16/22 : 83.5 kg (184 lb) 07/11/20 : 87.5 kg (193 lb) Smoked only as teen C scope due next Reviewed cholesterol- LDL (fish oil considered) not interested in a statin No falls (only a couple years ago on the ice)- went through PT Physical Exam: General Appearance: well appearing, alert and oriented. Skin: no suspicious lesion, no rash, no open sores Head: normocephalic, no obvious masses, lesions, tenderness or abnormalities. Eyes: Anicteric sclera. Pupils are equally round and reactive to light. Extraocular movements are intact. No nystagmus. Fundi benign. Ears: external ears normal, canals clear, TM's normal. Hearing to conversational voice intact. Nose/Sinuses: nares normal, septum midline, mucosa normal, no drainage or sinus tenderness. Oropharynx: lips, mucosa, and tongue normal, oropharynx normal. Neck: trachea midline, thyroid without mass or nodularity, thyroid moves normally with swallow, no regional lymphadenopathy. Carotids normal upstroke, no bruit or thrill. Back:no pain to palpation of vertebrae, no percussion tenderness over spine. Lungs: Chest rise AND fall symmetrical, Lungs clear to auscultation. No wheezing or rhonchi. No rales. Abdomen: normal bowel sounds, no mass, non-tender Heart: S1S2, no gallop, no rub, no murmur Lymph Nodes: no lymphadenopathy. Ext: no clubbing, cyanosis or edema. NEURO: cranial nerves III (more content not included)... Normal [facility] CBC W Auto Differential pane l (Bld)on 01-06-2024 Basophils (Bld) [#/Vol] 0.06 10*3/uL Normal <0.11 [facility] Comment on above: Order Comment: Speci men Type: BLOOD SPECIMENOrdering Facility: [facility] Address: [address] [place] [address] Performed By: #### 5 7021-8 ####[facility] [id number] [place] [address] [place] Basophils/100 WBC (Bld) 0.7 % Normal [facility] Comment on above: Order Comment: Speci men Type: BLOOD SPECIMENOrdering Facility: [facility] Address: [address] [place] [address] Performed By: #### 5 7021-8 ####[facility] [id number] [place] [address] [place] Differential cell count method Nom (Bld) Auto Normal [facility] Comment on above: Order Comment: Speci men Type: BLOOD SPECIMENOrdering Facility: [facility] Address: [address] [place] [address] Performed By: #### 5 7021-8 ####[facility] [id number] [place] [address] [place] Eosinophils (Bld) [#/Vol] 0.15 10*3/uL Normal <0.46 [facility] Comment on above: Order Comment: Speci men Type: BLOOD SPECIMENOrdering Facility: [facility] Address: [address] [place] [address] Performed By: #### 5 7021-8 ####[facility] SKYERADHALIA [id number] [place] [address] [place] Eosinophils/100 WBC (Bld) 1.8 % Normal [facility] Comment on above: Order Comment: Speci men Type: BLOOD SPECIMENOrdering Facility: [facility] Address: [address] [place] [address] Performed By: #### 5 7021-8 ####[facility] SPRINGSFRANCESCAMAGOA [id number] [place] [address] [place] Erythrocyte distribution width (RBC) [Ratio] 12.7 % Normal 11.5-15.0 [facility] Comment on above: Order Comment: Speci men Type: BLOOD SPECIMENOrdering Facility: [facility] Address: [address] [place] [address] Performed By: #### 5 7021-8 ####[facility] [id number] [place] [address] [place] Hematocrit (Bld) [Volume fraction] 45.0 % Normal 39.0-51.0 [facility] Comment on above: Order Comment: Speci men Type: BLOOD SPECIMENOrdering Facility: [facility] Address: [address] [place] [address] Performed By: #### 5 7021-8 ####[facility] SPRINGSFRANCESCALIA [id number] [place] [address] [place] Hemoglobin (Bld) [Mass/Vol] 15.6 g/dL Normal 13.0-17.0 [facility] Comment on above: Order Comment: Speci men Type: BLOOD SPECIMENOrdering Facility: [facility] Address: [address] [place] [address] Performed By: #### 5 7021-8 ####[facility] HOSPITALLIA [id number] [place] [address] [place] Immature granulocytes (Bld) [#/Vol] 0.04 10*3/uL Normal <0.10 [facility] Comment on above: Order Comment: Speci men Type: BLOOD SPECIMENOrdering Facility: [facility] Address: [address] [place] [address] Performed By: #### 5 7021-8 ####[facility] [id number] [place] [address] [place] Immature granulocytes/100 WBC (Bld) 0.5 % Normal [facility] Comment on above: Order Comment: Speci men Type: BLOOD SPECIMENOrdering Facility: [facility] Address: [address] [place] [address] Performed By: #### 5 7021-8 ####[facility] [id number] [place] [address] [place] Lymphocytes (Bld) [#/Vol] 1.82 10*3/uL Normal 1.00-4.00 [facility] Comment on above: Order Comment: Speci men Type: BLOOD SPECIMENOrdering Facility: [facility] Address: [address] [place] [address] Performed By: #### 5 7021-8 ####[facility] [id number] [place] [address] [place] Lymphocytes/100 WBC (Bld) 21.7 % Normal [facility] Comment on above: Order Comment: Speci men Type: BLOOD SPECIMENOrdering Facility: [facility] Address: [address] [place] [address] Performed By: #### 5 7021-8 ####[facility] [id number] [place] [address] [place] MCH (RBC) [Entitic mass] 31.1 pg Normal 26.0-34.0 [facility] Comment on above: Order Comment: Speci men Type: BLOOD SPECIMENOrdering Facility: [facility] Address: [address] [place] [address] Performed By: #### 5 7021-8 ####[facility]INGSNCMOUNT[facility] [id number] [place] [address] [place] MCHC (RBC) [Mass/Vol] 34.7 g/dL Normal 30.5-36.0 [facility] Comment on above: Order Comment: Speci men Type: BLOOD SPECIMENOrdering Facility: [facility] Address: [address] [place], [place] [address] Performed By: #### 5 7021-8 ####[facility] [id number] [place] [address] [place] MCV (RBC) [Entitic vol] 89.6 fL Normal 80.0-100.0 [facility] Comment on above: Order Comment: Speci men Type: BLOOD SPECIMENOrdering Facility: [facility] Address: [address] [place] [address] Performed By: #### 5 7021-8 ####[facility] [id number] [place] [address] [place] Monocytes (Bld) [#/Vol] 0.79 10*3/uL Normal <0.87 [facility] Comment on above: Order Comment: Speci men Type: BLOOD SPECIMENOrdering Facility: [facility] Address: [address] [place] [address] Performed By: #### 5 7021-8 ####[facility] [id number] [place] [address] [place] Monocytes/100 WBC (Bld) 9.4 % Normal [facility] Comment on above: Order Comment: Speci men Type: BLOOD SPECIMENOrdering Facility: [facility] Address: [address] [place] [address] Performed By: #### 5 7021-8 ####[facility] MILLTOWNCLIA [id number] [place] [address] [place] Neutrophils (Bld) [#/Vol] 5.54 10*3/uL Normal 1.45-7.50 [facility] Comment on above: Order Comment: Speci men Type: BLOOD SPECIMENOrdering Facility: [facility] Address: [address] [place] [address] Performed By: #### 5 7021-8 ####[facility] MILLWNCLIA [id number] [place] [address] [place] Neutrophils/100 WBC (Bld) 65.9 % Normal [facility] Comment on above: Order Comment: Speci men Type: BLOOD SPECIMENOrdering Facility: [facility] Address: [address] [place] [address] Performed By: #### 5 7021-8 ####[facility] HOSPITALWNCLIA [id number] [place] [address] [place] Nucleated RBC (Bld) [#/Vol] 10*3/uL Normal <0.01 [facility] Comment on above: Order Comment: Speci men Type: BLOOD SPECIMENOrdering Facility: [facility] Address: [address] [place] [address] Performed By: #### 5 7021-8 ####[facility] MILLTOWNCLIA [id number] [place] [address] [place] Nucleated RBC/100 WBC (Bld) [Ratio] 0.0 /100 WBC Normal [facility] Comment on above: Order Comment: Speci men Type: BLOOD SPECIMENOrdering Facility: [facility] Address: [address] [place] [address] Performed By: #### 5 7021-8 ####[facility] MILLWNCLIA [id number] [place] [address] [place] Platelet mean volume (Bld) [Entitic vol] 8.8 fL Low 9.0-12.7 [facility] Comment on above: Order Comment: Speci men Type: BLOOD SPECIMENOrdering Facility: [facility] Address: [address] [place] [address] Performed By: #### 5 7021-8 ####[facility] JOHANAA [id number] [place] [address] [place] Platelets (Bld) [#/Vol] 311 10*3/uL Normal 150-400 [facility] Comment on above: Order Comment: Speci men Type: BLOOD SPECIMENOrdering Facility: [facility] Address: [address] [place] [address] Performed By: #### 5 7021-8 ####[facility] SPRINGSFRANCESCAMAGOA [id number] [place] [address] [place] RBC (Bld) [#/Vol] 5.02 10*6/uL Normal 4.20-6.00 [facility] Comment on above: Order Comment: Speci men Type: BLOOD SPECIMENOrdering Facility: [facility] Address: [address] [place] [address] Performed By: #### 5 7021-8 ####[facility] SKYEHOUSTONFRANCESCAMAGOA [id number] [place] [address] [place] WBC (Bld) [#/Vol] 8.40 10*3/uL Normal 3.70-11.00 [facility] Comment on above: Order Comment: Speci men Type: BLOOD SPECIMENOrdering Facility: [facility] Address: [address] [place] [address] Performed By: #### 5 7021-8 ####[facility] SPRINGSNCLIA [id number] [address] [place] Comprehensive metabolic 2000 panelon 01-06-2024 Albumin [Mass/Vol] 4.2 g/dL Normal 3.9-4.9 [facility] Comment on above: Order Comment: Speci men Type: BLOOD SPECIMENOrdering Facility: [facility] Address: [address] [place] [address] Performed By: #### 2 4323-8 ####[facility] KOJO MILLTOWNCLIA [id number] [place] [address] [place] ALP [Catalytic activity/Vol] 86 U/L Normal 38-113 [facility] Comment on above: Order Comment: Speci men Type: BLOOD SPECIMENOrdering Facility: [facility] Address: [address] [place] [address] Performed By: #### 2 4323-8 ####[facility] HOSPITALWNCLIA [id number] [address] [place] ALT [Catalytic activity/Vol] 19 U/L Normal 10-54 [facility] Comment on above: Order Comment: Speci men Type: BLOOD SPECIMENOrdering Facility: [facility] Address: [address] [place] [address] Performed By: #### 2 4323-8 ####[facility] SPRINGSNCLIA [id number] [place] [address] [place] Anion gap [Moles/Vol] 8 mmol/L Normal 8-15 [facility] Comment on above: Order Comment: Speci men Type: BLOOD SPECIMENOrdering Facility: [facility] Address: [address] [place] [address] Performed By: #### 2 4323-8 ####[facility] MILLWNCLIA [id number] [place] [address] [place] AST [Catalytic activity/Vol] 25 U/L Normal 14-40 [facility] Comment on above: Order Comment: Speci men Type: BLOOD SPECIMENOrdering Facility: [facility] Address: [address] [place] [address] Performed By: #### 2 4323-8 ####[facility] MILLTOWNCLIA [id number] [place] [address] [place] Bilirubin [Mass/Vol] 0.6 mg/dL Normal 0.2-1.3 [facility] Comment on above: Order Comment: Speci men Type: BLOOD SPECIMENOrdering Facility: [facility] Address: [address] [place] [address] Performed By: #### 2 4323-8 ####[facility] SKYEFeliceNCLIA [id number] [place] [address] [place] Calcium [Mass/Vol] 9.2 mg/dL Normal 8.5-10.2 [facility] Comment on above: Order Comment: Speci men Type: BLOOD SPECIMENOrdering Facility: [facility] Address: [address] [place] [address] Performed By: #### 2 4323-8 ####[facility] SPRINGSNCLIA [id number] [place] [address] [place] Chloride [Moles/Vol] 103 mmol/L Normal 98-107 [facility] Comment on above: Order Comment: Speci men Type: BLOOD SPECIMENOrdering Facility: [facility] Address: [address] [place] [address] Performed By: #### 2 4323-8 ####[facility] MILLTOWNCLIA [id number] [place] [address] [place] CO2 [Moles/Vol] 25 mmol/L Normal 22-30 [facility] Comment on above: Order Comment: Speci men Type: BLOOD SPECIMENOrdering Facility: [facility] Address: [address] [place] [address] Performed By: #### 2 4323-8 ####[facility] [id number] [place] [address] [place] Creatinine [Mass/Vol] 1.03 mg/dL Normal 0.73-1.22 [facility] Comment on above: Order Comment: Bhavik brewster Type: BLOOD SPECIMENOrdering Facility: [facility] Address: [address] [place] [address] Performed By: #### 2 4323-8 ####[facility] [id number] [place] [address] [place] [facility] Creatinine and Glomerular filtration rate.predicted panel (S/P/Bld) 79 mL/min/1.73m??? Normal >=60 [facility] Comment on above: Order Comment: Bhavik brewster Type: BLOOD SPECIMENOrdering Facility: [facility] Address: [address] [place] [address] Result Comment: Etelvina mated Glomerular Filtration Rate (eGFR) is calculated using the 2020 CKD-EPI creatinine equation. This equation utilizes serum creatinine, sex, and age as parameters. The creatinine assay has traceable calibration to isotope dilution-mass spectrometry. Refer to KDIGO guidelines for clinical interpretation. In patients with unstable renal function, e.g. those with acute kidney injury, the eGFR may not accurately reflect actual GFR. Performed By: #### 2 4323-8 ####[facility] [id number] [place] [address] [place] Glucose [Mass/Vol] 99 mg/dL Normal 74-99 [facility] [facility] Comment on above: Order Comment: Bhavik brewster Type: BLOOD SPECIMENOrdering Facility: [facility] Address: [address] [place] [address] Result Comment: The [place] Diabetes Association (ADA) provides guidance for cutoff values for fasting glucose and random glucose. The ADA defines fasting as no caloric intake for at least 8 hours. Fasting plasma glucose results between 100 to 125 mg/dL indicate increased risk for diabetes (prediabetes). Fasting plasma glucose results greater than or equal to 126 mg/dL meet the criteria for diagnosis of diabetes. In the absence of unequivocal hyperglycemia, results should be confirmed by repeat testing. In a patient with classic symptoms of hyperglycemia or hyperglycemic crisis, random plasma glucose results greater than or equal to 200 mg/dL meet the criteria for diagnosis of diabetes. Reference: Standards of Medical Care in Diabetes 2016, [place] Diabetes Association. Diabetes Care. 2016.39(Suppl 1). Performed By: #### 2 4323-8 ####[facility] [id number] [place] [address] [place] Potassium [Moles/Vol] 4.1 mmol/L Normal 3.7-5.1 [facility] Comment on above: Order Comment: Speci men Type: BLOOD SPECIMENOrdering Facility: [facility] Address: [address] [place], [place] [address] Performed By: #### 2 4323-8 ####[facility] [id number] [place] [address] [place] Protein [Mass/Vol] 6.7 g/dL Normal 6.3-8.0 [facility] Comment on above: Order Comment: Speci men Type: BLOOD SPECIMENOrdering Facility: [facility] Address: [address] [place], [place] [address] Performed By: #### 2 4323-8 ####[facility] [id number] [place] [address] [place] Sodium [Moles/Vol] 136 mmol/L Normal 136-144 [facility] Comment on above: Order Comment: Speci men Type: BLOOD SPECIMENOrdering Facility: [facility] Address: [address] [place] [address] Performed By: #### 2 4323-8 ####[facility] [id number] [place] [address] [place] Urea nitrogen [Mass/Vol] 17 mg/dL Normal 9-24 [facility] Comment on above: Order Comment: Speci men Type: BLOOD SPECIMENOrdering Facility: [facility] Address: [address] [place] [address] Performed By: #### 2 4323-8 ####[facility] [id number] [address] OF [facility] Lipid 1996 panelon 4 Cholesterol [Mass/Vol] 203 mg/dL High <200 [facility] Comment on above: Order Comment: Speci men Type: BLOOD SPECIMENOrdering Facility: [facility] Address: [address] [place] [address] Result Comment: <200 mg/dL, Desirable 200-239 mg/dL, Borderline high >239 mg/dL, High Performed By: #### 2 4331-1 ####[facility] LABCLIA [id number] [address] [id number] [address] [place] Cholesterol in HDL [Mass/Vol] 44 mg/dL Normal >39 [facility] Comment on above: Order Comment: Speci men Type: BLOOD SPECIMENOrdering Facility: [facility] Address: [address] [place] [address] Result Comment: 40-5 9 mg/dL, Acceptable >59 mg/dL, High: Negative risk factor for coronary heart disease <40 mg/dL, Low: Positive risk factor for coronary heart disease Performed By: #### 2 4331-1 ####[facility] LABCLIA [id number] [address] [id number] [address] [place] Cholesterol in LDL [Mass/Vol] 142 mg/dL High <100 [facility] Comment on above: Order Comment: Speci men Type: BLOOD SPECIMENOrdering Facility: [facility] Address: [address] [place] [address] Result Comment: <100 mg/dL, Optimal 100-129 mg/dL, Near optimal/above optimal 130-159 mg/dL, Borderline high 160-189 mg/dL, High >189 mg/dL, Very high Secondary prevention optimal LDL Cholesterol levels are recommended to be < 70 mg/dL Performed By: #### 2 4331-1 ####[facility] LABCLIA [id number] [address] [id number] [place] [address] [place] [facility] Cholesterol in LDL/Cholesterol in HDL [Mass ratio] 3.23 {ratio} High <2.54 [facility] Comment on above: Order Comment: Speci men Type: BLOOD SPECIMENOrdering Facility: [facility] Address: [address] [place] [address] Result Comment: Refe rence: 1. National Cholesterol Education Program ATP III Guideline At-A-Glance Quick Desk Reference: National Heart, Lung, and Blood [place]. National Institutes of Health. 2001: NIH Publication No. 01-3305. 2. An International Atherosclerosis Society position paper: global recommendations for the management of dyslipidemia: executive summary, Atherosclerosis. 2014: 232(2):410-413. Performed By: #### 2 4331-1 ####[facility] LABCLIA [id number] [address] [id number] [address] STATES [facility] Cholesterol in VLDL [Mass/Vol] 17 mg/dL Normal <30 [facility] Comment on above: Order Comment: Speci men Type: BLOOD SPECIMENOrdering Facility: [facility] Address: [address] [place] [address] Performed By: #### 2 4331-1 ####[facility] LABCLIA [id number] [address] [id number] [place] [address] [place] Cholesterol non HDL [Mass/Vol] 159 mg/dL High <130 [facility] Comment on above: Order Comment: Speci men Type: BLOOD SPECIMENOrdering Facility: [facility] Address: [address] [place] [address] Result Comment: <130 mg/dL, Optimal 130-159 mg/dL, Near optimal/above optimal 160-189 mg/dL, Borderline high 190-219 mg/dL, High >219 mg/dL, Very high Secondary prevention optimal non HDL Cholesterol levels are recommended to be <100 mg/dL Performed By: #### 2 4331-1 ####[facility] LABCLIA [id number] [address] [id number] [place] [address] [place] Cholesterol.total/ Cholesterol in HDL [Mass ratio] 4.61 {ratio} Normal <5.10 [facility] Comment on above: Order Comment: Speci men Type: BLOOD SPECIMENOrdering Facility: [facility] Address: [address] [place] [address] Performed By: #### 2 4331-1 ####[facility] LABCLIA [id number] [address] [id number] [place] [address] [place] FASTING TIME 12 hrs Normal [facility] Comment on above: Order Comment: Speci men Type: BLOOD SPECIMENOrdering Facility: [facility] Address: [address] [place] [address] Performed By: #### 2 4331-1 ####[facility] LABCLIA [id number] [address] [id number] [address] STATES [facility] Triglyceride [Mass/Vol] 85 mg/dL Normal <150 [facility] Comment on above: Order Comment: Speci men Type: BLOOD SPECIMENOrdering Facility: [facility] Address: [address] [place] [address] Result Comment: <150 mg/dL, Normal 150-199 mg/dL, Borderline high 200-499 mg/dL, High >499 mg/dL, Very high Performed By: #### 2 4331-1 ####[facility] LABCLIA [id number] [address] OF [facility] [id number] [address] [place] PSA/PROSTATE SPECIFIC ANTIGE N SCREENINGon 01-06-2024 Prostate specific Ag [Mass/Vol] 0.42 ng/mL Normal <2.60 [facility] Comment on above: Order Comment: Speci men Type: BLOOD SPECIMENOrdering Facility: [facility] Address: [address] [place] [address] Result Comment: Tota l PSA test methodology used is the Electrochemiluminescence Immunoassay by [employer]. Total PSA values by differing methodologies cannot be interchanged. Performed By: #### P SAS1 ####[facility] LABCLIA [id number] [address] STATES OF [facility] XR LUMBAR GENERAL 3V AP/LAT/ L5-S1on 08-18-2022 [facility] XR Lumbar spine 3 Viewson IMPRESSION: Lumbar s pine mild degenerative changes. Child Care Teacher: DARRYL Transcribe Date/Time: Aug 18 2022 5:28P Dictated by : ASHA SAM MD This examination was interpreted and the report reviewed and electronically signed by: ASHA SAM MD on Aug 18 2022 5:29PM [facility] DIVISION OF RADIOLOGY * * *Final Report* * * DATE OF EXAM: Aug 18 2022 11:51AM WOX [id number] - XR LUMBAR 3V AP/LAT/L5-S1 / PROCEDURE REASON: Right-sided low back pain without sciatica, unspecified chronicity * * * * Physician Interpretation * * * * EXAM TITLE: XR LUMBAR 3V AP/LAT/L5-S1 EXAM DATE/TIME: 08/18/2022 11:51 AM COMPARISON: None. CLINICAL INDICATION/HISTORY: Low back pain. TECHNIQUE: AP, lateral and cone down lateral views of the lumbar spine are presented. FINDINGS: There are five cop-ztt-bcleohg lumbar vertebrae. No fracture or subluxations are noted. The disc spaces are well preserved. There is mild osteophyte formation. Questionable kissing spine. DIVISION OF RADIOLOGY Provider, [facility] - 08/18/2022 * * *Final Report* * * DATE OF EXAM: Aug 18 2022 11:51AM WOX 5228 - XR LUMBAR 3V AP/LAT/L5-S1 / PROCEDURE REASON: Right-sided low back pain without sciatica, unspecified chronicity * * * * Physician Interpretation * * * * EXAM TITLE: XR LUMBAR 3V AP/LAT/L5-S1 EXAM DATE/TIME: 08/18/2022 11:51 AM COMPARISON: None. CLINICAL INDICATION/HISTORY: Low back pain. TECHNIQUE: AP, lateral and cone down lateral views of the lumbar spine are presented. FINDINGS: There are five urb-ckx-aaffrje lumbar vertebrae. No fracture or subluxations are noted. The disc spaces are well preserved. There is mild osteophyte formation. Questionable kissing spine. IMPRESSION IMPRESSION: Lumbar spine mild degenerative changes. Child Care Teacher: PSCB Transcribe Date/Time: Aug 18 2022 5:28P Dictated by : ASHA SAM MD This examination was interpreted and the report reviewed and electronically signed by: ASHA SAM MD on Aug 18 2022 5:29PM EST [facility] Radiology Study observation (narrative) [facility] XR Lumbar spine 3 ViewsOrder ed By: Ccf Provider on 08-18-2022 [facility] CBC W Auto Differential pane l (Bld)on 01-16-2022 Basophils (Bld) [#/Vol] 0.05 10*3/uL <0.11 k/uL [facility] Basophils/100 WBC (Bld) 0.6 % [facility] Differential cell count method Nom (Bld) Auto [facility] Eosinophils (Bld) [#/Vol] 0.13 10*3/uL <0.46 k/uL [facility] Eosinophils/100 WBC (Bld) 1.5 % [facility] Erythrocyte distribution width (RBC) [Ratio] 13.1 % 11.5 - 15.0 % [facility] Hematocrit (Bld) [Volume fraction] 47.8 % 39.0 - 51.0 % [facility] Hemoglobin (Bld) [Mass/Vol] 16.0 g/dL 13.0 - 17.0 g/dL [facility] Immature granulocytes (Bld) [#/Vol] <0.10 k/uL [facility] Immature granulocytes/100 WBC (Bld) 0.2 % [facility] Lymphocytes (Bld) [#/Vol] 1.78 10*3/uL 1.00 - 4.00 k/uL [facility] Lymphocytes/100 WBC (Bld) 20.9 % [facility] MCH (RBC) [Entitic mass] 30.7 pg 26.0 - 34.0 pg [facility] MCHC (RBC) [Mass/Vol] 33.5 g/dL 30.5 - 36.0 g/dL [facility] MCV (RBC) [Entitic vol] 91.7 fL 80.0 - 100.0 fL [facility] Monocytes (Bld) [#/Vol] 0.94 10*3/uL High <0.87 k/uL [facility] Monocytes/100 WBC (Bld) 11.0 % [facility] Neutrophils (Bld) [#/Vol] 5.61 10*3/uL 1.45 - 7.50 k/uL [facility] Neutrophils/100 WBC (Bld) 65.8 % [facility] Nucleated RBC (Bld) [#/Vol] <0.01 k/uL [facility] Nucleated RBC/100 WBC (Bld) [Ratio] 0.0 /100 WBC [facility] Platelet mean volume (Bld) [Entitic vol] 9.6 fL 9.0 - 12.7 fL [facility] Platelets (Bld) [#/Vol] 319 10*3/uL 150 - 400 k/uL [facility] RBC (Bld) [#/Vol] 5.21 10*6/uL 4.20 - 6.0 0 m/uL [facility] WBC (Bld) [#/Vol] 8.53 10*3/uL 3.70 - 11. 00 k/uL [facility] Vital Signs Date Time Vital Sign Value Performing Clinician Faci lity 09-26-2024 13:15-0400 Diastolic blood pressure 78 mm[Hg] Casie Wilcox MD Work Phone: [facility] 09-26-2024 13:15-0400 Heart rate 61 /min Casie Wilcox MD Work Phone: [facility] 09-26-2024 13:15-0400 SaO2% (BldA) [Mass fraction] 94 % Casie Wilcox MD Work Phone: [facility] 09-26-2024 13:15-0400 Systolic blood pressure 123 mm[Hg] Casie Wilcox MD Work Phone: [facility] 09-26-2024 12:15-0400 Respiratory rate 16 /min Casie Wilcox MD Work Phone: [facility] 09-26-2024 11:22-0400 Body mass index (BMI) [Ratio] 28.06 kg/m2 Casie Wilcox MD Work Phone: [facility] 09-26-2024 11:22-0400 Body temperature 97.39 [degF] Casie Wilcox MD Work Phone: [facility] 09-26-2024 11:22-0400 Body weight 86.2 kg Casie Wilcox MD Work Phone: [facility] 09-04-2024 10:42-0400 Body height 175.3 cm Casie Wilcox MD Work Phone: [facility] 09-04-2024 10:42-0400 Body mass index (BMI) [Ratio] 28.06 kg/m2 Casie Wilcox MD Work Phone: [facility] 09-04-2024 10:42-0400 Body temperature 97.9 [degF] Casie Wilcox MD Work Phone: [facility] 09-04-2024 10:42-0400 Body weight 86.18 kg Casie Wilcox MD Work Phone: [facility] 09-04-2024 10:42-0400 Diastolic blood pressure 72 mm[Hg] Casie Wilcox MD Work Phone: [facility] 09-04-2024 10:42-0400 Heart rate 76 /min Casie Wilcox MD Work Phone: [facility] 09-04-2024 10:42-0400 Respiratory rate 14 /min Casie Wilcox MD Work Phone: [facility] 09-04-2024 10:42-0400 SaO2% (BldA) [Mass fraction] 98 % Casie Wilcox MD Work Phone: [facility] 09-04-2024 10:42-0400 Systolic blood pressure 116 mm[Hg] Casie Wilcox MD Work Phone: [facility] 08-30-2024 09:52-0400 Body height 176.5 cm Billie Aceves MD Work Phone: [facility] 08-30-2024 09:52-0400 Body mass index (BMI) [Ratio] 27.49 kg/m2 Billie Aceves MD Work Phone: [facility] 08-30-2024 09:52-0400 Body weight 85.64 kg Billie Aceves MD Work Phone: [facility] 08-30-2024 09:52-0400 Diastolic blood pressure 70 mm[Hg] Billie Aceves MD Work Phone: [facility] 08-30-2024 09:52-0400 Heart rate 89 /min Billie Aceves MD Work Phone: [facility] 08-30-2024 09:52-0400 SaO2% (BldA) [Mass fraction] 97 % Billie Aceves MD Work Phone: [facility] 08-30-2024 09:52-0400 Systolic blood pressure 124 mm[Hg] Billie Aceves MD Work Phone: [facility] 01-18-2024 10:53-0500 Body mass index (BMI) [Ratio] 27.81 kg/m2 Johanna Suppan 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: [facility] 01-18-2024 10:53-0500 Body weight 86.64 kg Johanna Suppan 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: [facility] 01-18-2024 10:53-0500 Diastolic blood pressure 78 mm[Hg] Johanna Suppan 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: [facility] 01-18-2024 10:53-0500 Heart rate 67 /min Johanna Suppan 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: [facility] 01-18-2024 10:53-0500 SaO2% (BldA) [Mass fraction] 98 % Johanna Suppan 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: [facility] 01-18-2024 10:53-0500 Systolic blood pressure 128 mm[Hg] Johanna Suppan 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: [facility] 08-23-2023 08:00-0400 Diastolic blood pressure 68 mm[Hg] Bennett Golias PT Work Phone: [facility] 08-23-2023 08:00-0400 Heart rate 81 /min Bennett Golias PT Work Phone: [facility] 08-23-2023 08:00-0400 Systolic blood pressure 117 mm[Hg] Bennett Golias PT Work Phone: [facility] 08-02-2023 12:57-0400 Body mass index (BMI) [Ratio] 27.52 kg/m2 Issa Vidales MD Work Phone: [facility] 08-02-2023 12:57-0400 Body weight 85.73 kg Issa Vidales MD Work Phone: [facility] 08-02-2023 12:57-0400 Diastolic blood pressure 72 mm[Hg] Issa Vidales MD Work Phone: [facility] 08-02-2023 12:57-0400 Heart rate 86 /min Issa Vidales MD Work Phone: [facility] 08-02-2023 12:57-0400 SaO2% (BldA) [Mass fraction] 95 % Issa Vidales MD Work Phone: [facility] 08-02-2023 12:57-0400 Systolic blood pressure 122 mm[Hg] Issa Vidales MD Work Phone: [facility] 01-05-2023 13:04-0500 Body height 176.5 cm Annalisa Haagen 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: [facility] 01-05-2023 13:04-0500 Body weight 85.73 kg Annalisa Haagen 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: [facility] 01-05-2023 13:04-0500 Diastolic blood pressure 82 mm[Hg] Annalisa Haagen 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: [facility] 01-05-2023 13:04-0500 Heart rate 79 /min Annalisa Haagen 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: [facility] 01-05-2023 13:04-0500 Respiratory rate 16 /min Annalisa Haagen 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: [facility] 01-05-2023 13:04-0500 SaO2% (BldA) [Mass fraction] 94 % Annalisa Haagen 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: [facility] 01-05-2023 13:04-0500 Systolic blood pressure 126 mm[Hg] Annalisa Haagen 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: [facility] 08-18-2022 10:50-0400 Diastolic blood pressure 92 mm[Hg] Annalisa Haagen 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: [facility] 08-18-2022 10:50-0400 Heart rate 78 /min Annalisa Haagen 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: [facility] 08-18-2022 10:50-0400 Respiratory rate 16 /min Annalisa Haagen 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: [facility] 08-18-2022 10:50-0400 SaO2% (BldA) [Mass fraction] 95 % Annalisa Lindsay 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: [facility] 08-18-2022 10:50-0400 Systolic blood pressure 144 mm[Hg] Annalisa Lindsay 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: [facility] 01-16-2022 08:09-0500 Body weight 83.46 kg Issa Vidales MD Work Phone: [facility] 01-16-2022 08:09-0500 Diastolic blood pressure 72 mm[Hg] Issa Vidales MD Work Phone: [facility] 01-16-2022 08:09-0500 Heart rate 73 /min Issa Vidales MD Work Phone: [facility] 01-16-2022 08:09-0500 SaO2% (BldA) [Mass fraction] 97 % Issa Vidales MD Work Phone: [facility] 01-16-2022 08:09-0500 Systolic blood pressure 110 mm[Hg] Issa Vidales MD Work Phone: [facility] Encounters Encounter Date Encounter Type Care Provider Facility Start: 10-16-2024 End: 10-16-2024 ambulatory [facility] Facility:[facility] Start: 10-16-2024 End: 10-16-2024 Admission to same day surgery center Casie Wilcox MD Work Phone: General Surgery Comment on above: Hemorrhoids, interna l, with bleeding (Primary Dx) Start: 10-16-2024 End: 10-16-2024 Telemedicine consultation with patient Casie Wilcox MD Work Phone: General Surgery Start: 09-26-2024 ambulatory [facility] Facility :[facility] Start: 09-26-2024 End: 09-26-2024 Subsequent hospital visit by physician Casie Wilcox MD Work Phone: Ambulatory Surgery Comment on above: Screening for colon cancer [Z12.11] Start: 09-19-2024 End: 09-19-2024 Admission to same day surgery center Casie Wilcox MD Work Phone: Ambulatory Surgery Comment on above: bowel prep tips Start: 09-19-2024 End: 09-19-2024 E-mail encounter from caregiver Casie Wilcox MD Work Phone: Ambulatory Surgery Start: 09-04-2024 End: 09-05-2024 Follow-up encounter Billie Aceves MD Work Phone: [facility] [place] Comment on above: Results Start: 09-04-2024 End: 09-04-2024 Patient encounter procedure Casie Wilcox MD Work Phone: General Surgery Comment on above: Screening for colon cancer; Rectal bleeding Start: 09-04-2024 End: 09-04-2024 ambulatory [facility] Facility:[facility] Start: 08-30-2024 End: 08-30-2024 Patient encounter procedure Billie Aceves MD Work Phone: Family [facility] [place] Comment on above: Rectal bleeding (Michelle juanis Dx); External hemorrhoids; Internal hemorrhoids Start: 08-30-2024 End: 08-30-[address] [facility] Facility:[facility] Start: 08-28-2024 End: 08-28-2024 ambulatory Nurse Intm/Famp Triage [facility] Work Phone: Nurse Phone Triage Comment on above: Rectal Problem Colonoscopy Start: 01-18-2024 End: 01-18-2024 Patient encounter status Johanna Oliver APRN.CUFF TURNER MACHINE OPERATOR Work Phone: [facility] Work Phone: Start: 01-18-2024 End: 01-18-2024 ambulatory [facility] Facility:[facility] Start: 01-18-2024 Encounter for genera l adult medical examination without abnormal findings JOHANNA OLIVER [facility] Start: 01-18-2024 End: 01-18-2024 Patient encounter procedure Johanna Oliver 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: Family [facility] Comment on above: Wellness examination (Primary Dx); Encounter for immunization; Screening for depression; Encounter for screening examination for other mental health and behavioral disorders; Medicare annual wellness visit, subsequent; Screening for abdominal aortic aneurysm; Screening for cholesterol level; Due next year; Screening for diabetes mellitus; Need for hepatitis C screening test; Screening for HIV (human immunodeficiency virus); Done- WNL; Memory changes; Cognitive changes Start: 01-13-2024 End: 01-13-2024 ambulatory Issa Vidales MD Work Phone: [facility] [place] Comment on above: next wellness visit Start: 01-11-2024 End: 01-11-2024 Refill Annalisa Lindsay 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: [facility] [place] Comment on above: Refill Request Start: 01-06-2024 End: 01-06-2024 ambulatory ISSA VIDALES Facility:[facility] Start: 01-05-2024 End: 01-05-2024 ambulatory Annalisa Lindsay 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: [facility] [place] Comment on above: Medicare wellness ch miki up Start: 10-06-2023 End: 10-06-2023 ambulatory Bennett Golias PT Work Phone: [facility] Comment on above: Chronic right-sided low back pain without sciatica (Primary Dx); Degeneration of lumbar intervertebral disc Start: 09-23-2023 End: 09-23-2023 ambulatory Bennett Golias PT Work Phone: [facility] Comment on above: Chronic right-sided low back pain without sciatica (Primary Dx); Degeneration of lumbar intervertebral disc Start: 09-14-2023 End: 09-14-2023 ambulatory Lina Malave CONVEYOR MAINTENANCE MECHANIC Work Phone: [facility] Comment on above: Chronic right-sided low back pain without sciatica (Primary Dx); Degeneration of lumbar intervertebral disc Start: 09-01-2023 End: 09-01-2023 ambulatory Bennett Golias PT Work Phone: [facility] Comment on above: Chronic right-sided low back pain without sciatica (Primary Dx); Degeneration of lumbar intervertebral disc Start: 08-24-2023 ambulatory Bennett Golias P T Work Phone: [facility] Comment on above: [employer] Start: 08-23-2023 End: 08-23-2023 ambulatory Bennett Connell PT Work Phone: [facility] Comment on above: Degeneration of lumb ar intervertebral disc (Primary Dx); DDD (degenerative disc disease), lumbar; Chronic midline low back pain without sciatica Start: 08-02-2023 End: 08-02-2023 Patient encounter procedure Issa Vidales MD Work Phone: [facility] Comment on above: Chronic midline low back pain without sciatica (Primary Dx); Screening for prostate cancer; Elevated LDL cholesterol level; DDD (degenerative disc disease), lumbar Start: 07-28-2023 ambulatory Serina French [facility] Start: 07-28-2023 [facility] Comment on above: Population Health Na vigation Outreach ([place] AWV/HCC and care gaps ) Start: 06-29-2023 ambulatory Serina French [facility] Start: 06-29-2023 Patient encounter procedure [facility] Comment on above: Population Health Na vigation Outreach (Zackary Annual Wellness Visit ) Start: 01-05-2023 End: 01-05-2023 Patient encounter procedure Annalisa Lindsay APRN.CNP Work Phone: [facility] Comment on above: Right-sided low back pain without sciatica, unspecified chronicity (Primary Dx); ED (erectile dysfunction) of organic origin; Encounter for immunization; Medicare annual wellness visit, subsequent Start: 10-09-2022 ambulatory Bennett Connell P T Work Phone: [facility] Comment on above: Back stretches Start: 08-18-2022 End: 08-18-2022 Subsequent hospital visit by physician Yaneth [facility] [place] Work Phone: Radiology Comment on above: Right-sided low back pain without sciatica, unspecified chronicity [M54.50] Start: 08-18-2022 End: 08-18-2022 Office outpatient visit 15 minutes Annalisa Haagen 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: [facility] Comment on above: Right-sided low back pain without sciatica, unspecified chronicity (Primary Dx) Start: 01-16-2022 End: 01-16-2022 Patient encounter procedure Issa Viadles MD Work Phone: [facility] Comment on above: Encounter for immuni zation (Primary Dx); Family history of prostate cancer; Need for vaccination; Well adult exam; Multiple thyroid nodules; Screening for prostate cancer; Mixed hyperlipidemia; ED (erectile dysfunction) of organic origin Start: 01-16-2022 End: 01-16-2022 Patient encounter status Issa Vidales MD Work Phone: [facility] Start: 10-06-2010 End: 07-08-2012 Patient encounter status Serina French MA [facility] Procedures Date Procedure Procedure Detail Performing Clinician Start: 09-26-2024 Colonoscopy flx dx w /collj spec when pfrmd Casie Wilcox MD Work Phone: Start: 09-26-2024 Colonoscopy Casie Wilcox MD Work Phone: Start: 01-18-2024 Adult depression scr eening assessment Johanna Oliver 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: Start: 01-06-2024 Lipid 1996 panel - S elijah or Plasma Annalisa Lindsay 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: Start: 01-05-2023 INFLUENZA VACCINE, P RSV FREE, AGE 65+ YR, HIGH DOSE, QUADRIVALENT (FLUZONE HIGH-DOSE) Annalisa Lindsay APRN.CUFF TURNER MACHINE OPERATOR Work Phone: Start: 08-18-2022 Radex spine lumbosac ral 2/3 views Annalisa Lindsay APRN.CUFF TURNER MACHINE OPERATOR Work Phone: Start: 01-16-2022 INFLUENZA SEASONAL QUADRIVALENT HIGH DOSE AGE 65+ Issa Vidales MD Work Phone: Start: 01-16-2022 Lipid 1996 panel - S elijah or Plasma Annalisa Lindsay 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: Start: 12-17-2014 Colonoscopy Issa Salcedo MD Work Phone: Plan of Treatment Date Care Activity Detail Author Start: 09-26-2034 Screening for malign ant neoplasm of colon [facility] Start: 08-17-2031 Urine microalbumin profile [facility] Start: 05-24-2030 RSV Vaccine (1 - 1-d ose 75+ series) RSV Vaccine (1 - 1-dose 75+ series) [facility] Start: 01-05-2029 Lipid panel Lipid Screening [facility] Start: 01-05-2029 Prostate specific antigen measurement Prostate Cancer Screening Discussion [facility] Start: 08-31-2027 Diabetes Screening Diabetes Screenin g [facility] Start: 01-16-2027 Lipid 1996 panel - Serum or Plasma Lipid Screening [facility] Start: 01-16-2027 Lipid panel Lipid Screening [facility] Start: 01-16-2027 LIPID SCREEN LIPID SCREEN [facility] Start: 01-16-2027 PROSTATE CANCER SCREENING DISCUSSION PROSTATE CANCER SCREENING DISCUSSION [facility] Start: 01-16-2027 Prostate specific antigen measurement Prostate Cancer Screening Discussion [facility] Start: 01-05-2027 Diabetes Screening Diabetes Screenin g [facility] Start: 11-12-2025 PROSTATE CANCER SCREENING DISCUSSION PROSTATE CANCER SCREENING DISCUSSION [facility] Start: 09-04-2025 Screening for malign ant neoplasm of colon Fecal Occult Blood [facility] Start: 01-17-2025 Anxiety Screening Anxiety Screening [facility] Start: 01-17-2025 Covid-19 Vaccine () Covid-19 Vaccine () [facility] Comment on above: Postponed from 10/30 (Declined at this time) Start: 01-17-2025 Depression Screening Depression Scre ening [facility] Start: 01-16-2025 DIABETES SCREEN DIABETES SCREEN [facility] Start: 01-16-2025 Diabetes Screening Diabetes Screenin g [facility] Start: 01-15-2025 LIPID SCREEN LIPID SCREEN [facility] Start: 12-17-2024 Colonoscopy COLONOSCOPY [facility] Start: 12-17-2024 COLORECTAL CANCER SCREENING COLORECTAL CANCER SCREENING [facility] Start: 12-17-2024 Screening for malign ant neoplasm of colon [facility] Start: 10-30-2024 Influenza vaccination Influenza Vacc ine (#1) [facility] Start: 09-26-2024 End: 09-26-2024 Patient encounter procedure 09/26/2024 10:30 AM EDT Appointment Ambulatory Surgery [address] [place], [place] [id number] Casie Wilcox MD [address] [place] [id number] Ambulatory Surgery Start: 09-04-2024 End: 09-04-2024 Patient encounter procedure 09/04/2024 10:45 AM EDT Office Visit General Surgery [address] [place], [place] [id number] Casie Wilcox MD [address] [place] [id number] Rectal bleeding [K62.5]. Last colonoscopy Nov 2014 [facility] General Surgery Comment on above: Rectal bleeding [K62 .5]. Last colonoscopy Nov 2014 [facility] Start: 08-30-2024 End: 11-29-2024 C reactive protein [Mass/volume] in Serum or Plasma [facility] Comment on above: Expected: 08/30/2024 , Expires: 11/29/2024 Start: 08-30-2024 End: 11-29-2024 Comprehensive metabolic 2000 panel - Serum or Plasma [facility] Work Phone: Comment on above: Expected: 08/30/2024 , Expires: 11/29/2024 Start: 08-30-2024 End: 11-29-2024 Erythrocyte sedimentation rate [facility] Comment on above: Expected: 08/30/2024 , Expires: 11/29/2024 Start: 08-30-2024 End: 08-30-2024 Patient encounter procedure 08/30/2024 10:00 AM EDT Office Visit [facility] [address] [place], [place] [address] Billie Aceves MD [address] [place], [place] [id number] rectal bleeding [facility] Comment on above: rectal bleeding Start: 03-01-2024 Medicare Advantage Annual Wellness Visit Medicare Advantage Annual Wellness Visit [facility] Start: 01-18-2024 End: 01-18-2024 Patient encounter procedure 01/18/2024 11:00 AM EST Office Visit [facility] [place] [address] [place] [address] Johanna Oliver PAYROLL ACCOUNTANT.CUFF TURNER MACHINE OPERATOR [address] [place] [address] medicare wellness [facility] Comment on above: medicare wellness Start: 01-11-2024 End: 01-11-2024 Patient encounter procedure 01/11/2024 9:40 AM EST Office Visit [facility] [address] [place] [address] Annalisa Lindsay APRN.CUFF TURNER MACHINE OPERATOR [address] [place] [address] medicare wellness [facility] Comment on above: medicare wellness Start: 01-06-2024 Covid-19 Vaccine () Covid-19 Vaccine () [facility] Comment on above: Postponed from 10/30 (Declined at this time) Start: 01-06-2024 End: 01-06-2024 ambulatory 01/06/2024 9:15 AM EST Results Only [facility] [address] [place] [address] [facility] Start: 12-31-2023 End: 03-31-2024 CBC W Auto Differential panel - Blood COMPLETE BLOOD COUNT AND DIFFERENTIAL Lab Routine Elevated LDL cholesterol level Expected: 12/31/2023, Expires: 03/31/2024 [facility] Work Phone: Comment on above: Expected: 12/31/2023 , Expires: 03/31/2024 Start: 12-31-2023 End: 03-31-2024 Comprehensive metabolic 2000 panel - Serum or Plasma COMPREHENSIVE METABOLIC PANEL Lab Routine Elevated LDL cholesterol level Expected: 12/31/2023, Expires: 03/31/2024 [facility] Comment on above: Expected: 12/31/2023 , Expires: 03/31/2024 Start: 12-31-2023 End: 03-31-2024 Lipid 1996 panel - Serum or Plasma LIPID PANEL BASIC Lab Routine Elevated LDL cholesterol level Expected: 12/31/2023, Expires: 03/31/2024 [facility] Comment on above: Expected: 12/31/2023 , Expires: 03/31/2024 Start: 12-31-2023 End: 03-31-2024 PSA/PROSTATE SPECIFIC ANTIGEN SCREENING PSA/PROSTATE SPECIFIC ANTIGEN SCREENING Lab Routine Screening for prostate cancer Expected: 12/31/2023, Expires: 03/31/2024 [facility] Comment on above: Expected: 12/31/2023 , Expires: 03/31/2024 Start: 10-31-2023 Covid-19 Vaccine ( season) Covid-19 Vaccine () [facility] Start: 10-31-2023 Covid-19 Vaccine ( season) Covid-19 Vaccine () [facility] Start: 10-31-2023 Influenza vaccination Influenza Vacc ine (#1) [facility] Start: 10-14-2023 End: 10-14-2023 ambulatory 10/14/2023 9:15 AM EDT OT/PT/Speech Visit [facility] [address] [place], [place] [address] Bennett Connell, PT [address] [place] [address] M51.36 (ICD-10-CM) - DDD (degenerative disc disease), lumbar [facility] Comment on above: M51.36 (ICD-10-CM) - DDD (degenerative disc disease), lumbar Start: 10-06-2023 End: 10-06-2023 ambulatory 10/06/2023 5:30 PM EDT OT/PT/Speech Visit [facility] [address] [place], [place] [address] Bennett Connell, PT [address] [place] [address] M51.36 (ICD-10-CM) - DDD (degenerative disc disease), lumbar [facility] Comment on above: M51.36 (ICD-10-CM) - DDD (degenerative disc disease), lumbar Start: 09-23-2023 End: 09-23-2023 ambulatory 09/23/2023 9:15 AM EDT OT/PT/Speech Visit [facility] [address] [place] [address] Ko, Bennett, PT [address] [place] [address] M51.36 (ICD-10-CM) - DDD (degenerative disc disease), lumbar [facility] Comment on above: M51.36 (ICD-10-CM) - DDD (degenerative disc disease), lumbar Start: 09-14-2023 End: 09-14-2023 ambulatory 09/14/2023 9:30 AM EDT OT/PT/Speech Visit [facility] [address] [place] [address] Lian Malave, CONVEYOR MAINTENANCE MECHANIC [address] [place] [address] M51.36 (ICD-10-CM) - DDD (degenerative disc disease), lumbar [facility] Comment on above: M51.36 (ICD-10-CM) - DDD (degenerative disc disease), lumbar Start: 09-07-2023 End: 09-07-2023 ambulatory 09/07/2023 1:15 PM EDT OT/PT/Speech Visit [facility] [address] [place] [address] Lian Malave, CONVEYOR MAINTENANCE MECHANIC [address] [place] [address] M51.36 (ICD-10-CM) - DDD (degenerative disc disease), lumbar [facility] Comment on above: M51.36 (ICD-10-CM) - DDD (degenerative disc disease), lumbar Start: 09-01-2023 End: 09-01-2023 ambulatory 09/01/2023 5:30 PM EDT OT/PT/Speech Visit [facility] [address] [place] [address] Golias, Bennett, PT [address] [place] [address] M51.36 (ICD-10-CM) - DDD (degenerative disc disease), lumbar [facility] Comment on above: M51.36 (ICD-10-CM) - DDD (degenerative disc disease), lumbar Start: 08-30-2023 End: 08-30-2023 ambulatory 08/30/2023 9:30 AM EDT OT/PT/Speech Visit [facility] [address] [place] [address] Golias, Bennett, PT [address] [place] [address] M51.36 (ICD-10-CM) - DDD (degenerative disc disease), lumbar [facility] Comment on above: M51.36 (ICD-10-CM) - DDD (degenerative disc disease), lumbar Start: 08-23-2023 End: 08-23-2023 ambulatory 08/23/2023 8:30 AM EDT OT/PT/Speech Visit [facility] [address] [place] [address] Golias, Bennett, PT [address] [place] [address] DDD (degenerative disc disease), lumbar [M51.36] [facility] Comment on above: DDD (degenerative di sc disease), lumbar [M51.36] Start: 08-02-2023 End: 08-02-2023 Patient encounter procedure 08/02/2023 1:00 PM EDT Office Visit [facility] [address] [place] [address] Issa Vidales MD [address] [place] [address] Back pain [facility] [place] Comment on above: Back pain Start: 03-01-2023 Advance Directive Discussion Advance Directive Discussion [facility] Start: 03-01-2023 Behavioral Health Screening Behavioral Health Screening [facility] Start: 01-15-2023 DIABETES SCREEN DIABETES SCREEN [facility] Start: 10-30-2022 Influenza vaccination INFLUENZA (#1) [facility] Start: 03-01-2022 ADVANCE DIRECTIVE DISCUSSION ADVANCE DIRECTIVE DISCUSSION [facility] Start: 03-01-2022 DEPRESSION ASSESSMENT DEPRESSION ASS ESSMENT [facility] Start: 01-16-2022 End: 03-18-2022 Comprehensive metabolic 2000 panel - Serum or Plasma [facility] Work Phone: Comment on above: Expected: 01/16/2022 , Expires: 03/18/2022 Start: 01-16-2022 End: 03-18-2022 Lipid 1996 panel - Serum or Plasma [facility] Work Phone: Comment on above: Expected: 01/16/2022 , Expires: 03/18/2022 Start: 01-16-2022 End: 03-18-2022 PSA/PROSTSPECAG SCRN [facility] Work Phone: Comment on above: Expected: 01/16/2022 , Expires: 03/18/2022 Start: 01-16-2021 COVID-19 VACCINE (3 - Booster for Moderna series) COVID-19 VACCINE (3 - Booster for Moderna series) [facility] Start: 01-16-2021 COVID-19 VACCINE (3 - Moderna series) COVID-19 VACCINE (3 - Moderna series) [facility] Start: 2015 RSV Vaccine (1 - 1-d ose 60+ series) RSV Vaccine (1 - 1-dose 60+ series) [facility] Start: 07-08-2013 FECAL OCCULT BLOOD FECAL OCCULT BLOO D [facility] Start: 07-08-2013 Screening for malign ant neoplasm of colon Fecal Occult Blood [facility] Start: 05-24-2000 COLOGUARD (FIT-DNA) COLOGUARD (FIT-D NA) [facility] Start: 05-24-[address] [facility] Start: 05-24-2000 Screening for malign ant neoplasm of colon [facility] Start: 05-24-2000 SIGMOIDOSCOPY SIGMOIDOSCOPY [facility] Start: 05-24-1973 Anxiety Screening Anxiety Screening [facility] Start: 05-24-1973 Depression Screening Depression Scre ening [facility] Hemoglobin.gastroint est inal.lower [Presence] in Stool by Immunoassay IMMUNOCHEMICAL FECAL OCCULT BLOOD TEST Lab Routine Rectal bleeding Ordered: 08/30/2024 [facility] Comment on above: Ordered: 08/30/2024 PT ED ORTHOPAEDICS PT ED ORTHOPA EDICS Other 01/18/2024 [facility] Work Phone: End: 09-04-2025 Screening colonoscopy COLONOSCOPY SCREENING Endoscopy Routine Screening for colon cancer 1 Occurrences starting 09/04/2024 until 09/04/2025 [facility] Work Phone: Comment on above: 1 Occurrences starti ng 09/04/2024 until 09/04/2025 Immunizations Immunization Date Immunization Notes Care Provider Amita oliveira 01-18-2024 influenza, high dose seasonal, preservative-free Johanna Oliver 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: [facility] 01-18-2024 influenza virus vaccine, unspecified formulation Billie Aceves MD Work Phone: [facility] 01-06-2023 influenza (HD-IIV4) vaccine, age 65+ yr, high dose, quadrivalent, PF (FLUZONE HIGH-DOSE) Annalisa Lindsay 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: [facility] 01-06-2023 influenza virus vaccine, unspecified formulation Bennett Connell PT Work Phone: [facility] 01-16-2022 influenza, high-dose , quadrivalent vaccine (FLUZONE HIGH DOSE QUADRIVALENT) Issa Vidales MD Work Phone: [facility] 01-16-2022 pneumococcal (PCV20) vaccine, 20 valent (PREVNAR 20) Issa Vidales MD Work Phone: [facility] 01-16-2022 pneumococcal Conjugate, unspecified formulation Issa Vidales MD Work Phone: [facility] Work Phone: 08-16-2021 tetanus toxoid, reduced diphtheria toxoid, and acellular pertussis vaccine, adsorbed Issa Vidales MD Work Phone: [facility] 01-04-2021 influenza, high-dose , quadrivalent vaccine (FLUZONE HIGH DOSE QUADRIVALENT) Issa Vidales MD Work Phone: [facility] 07-04-2020 COVID-19 original vaccine, full dose, monovalent (MODERNA) Issa Vidales MD Work Phone: [facility] 05-20-2020 zoster vaccine recombinant Issa Vidales MD Work Phone: [facility] 03-20-2020 zoster vaccine recombinant Issa Vidales MD Work Phone: [facility] Work Phone: 01-15-2020 influenza, injectabl e, quadrivalent, contains preservative Issa Vidales MD Work Phone: [facility] 01-06-2019 influenza, injectabl e, quadrivalent, contains preservative Issa Vidales MD Work Phone: [facility] 12-31-2015 influenza virus vaccine, unspecified formulation Issa Vidales MD Work Phone: [facility] 11-27-2015 tetanus and diphther ia toxoids, adsorbed, preservative free, for adult use (5 Lf of tetanus toxoid and 2 Lf of diphtheria toxoid) Issa Vidales MD Work Phone: [facility] 11-27-2015 zoster vaccine, live Issa Vidales MD Work Phone: [facility] 12-25-2014 influenza, seasonal, injectable Issa Vidales MD Work Phone: [facility] 01-10-2014 influenza, seasonal, injectable Issa Vidales MD Work Phone: [facility] 01-09-2008 influenza virus vaccine, whole virus Issa Vidales MD Work Phone: [facility] Work Phone: 01-17-2007 influenza virus vaccine, whole virus Issa Vidales MD Work Phone: [facility] Work Phone: 11-16-2005 tetanus toxoid, reduced diphtheria toxoid, and acellular pertussis vaccine, adsorbed Issa Vidales MD Work Phone: [facility] Work Phone: Payers Date Payer Category Payer Medicare (Managed Care) MMO [employer] [employer] [facility] [id number] 2024 Unknown [id number] 2020 Unknown [id number] 2020 Medicare [id number] Social History Date Type Detail Facility Assertion Tobacco smoking consumption unknown (finding) [facility] Work [facility]: Start: 07-08-2012 Tobacco smoking status NHIS Never smoked tobacco [facility] Start: 07-08-2012 Tobacco use and exposure Smokeless tobacco non-user [facility] Start: 01-16-2022 End: 09-26-2024 Alcohol intake Current drinker of alcohol (finding) [facility] Start: 01-16-2022 History SDOH Alcohol Frequency 2 [facility] Start: 11-18-2022 History SDOH Alcohol Std Drinks 1 [facility] Start: 01-16-2022 History SDOH Social Connections Phone 3 [facility] Start: 01-16-2022 History SDOH Physical Activity DPW 7 [facility] Start: 01-16-2022 History SDOH Physical Activity MPS 8 [facility] Start: 01-16-2022 History SDOH Financial 5 [facility] Start: 01-09-2019 Education 17 [facility] Start: 1955 Sex Assigned At Male [facility] Start: 01-06-2022 End: 01-16-2022 Exposure to SARS-CoV-2 (event) Not sure [facility] Start: 01-15-2022 End: 09-22-2022 History of Social function [facility] Start: 01-15-2022 End: 09-22-2022 Social connection and isolation panel [facility] Do you belong to any clubs or organizations such as christian groups, unions, fraternal or athletic groups, or school groups? Yes [facility] Are you now , , , , never or living with a partner? [facility] How often to you hav e a drink containing alcohol? Monthly or less [facility] How many standard dr inks containing alcohol do you have on a typical day? 1 or 2 [facility] How often do you hav e 6 or more drinks on 1 occasion? Never [facility] Start: 01-31-2012 How hard is it for you to pay for the very basics like food, housing, medical care, and heating Not hard at all [facility] Do you feel stress - tense, restless, nervous, or anxious, or unable to sleep at night because your mind is troubled all the time - these days [OSQ] Not at all [facility] (I/We) worried wheth er (my/our) food would run out before (I/we) got money to buy more. Never true [facility] In the past 12 month s, was there a time when you were not able to pay the mortgage or rent on time? No [facility] Start: 03-19-2020 Gender identity Identifies as male gender (finding) [facility] Start: 03-19-2020 Sexual orientation Heterosexual (finding) [facility] [facility] How often to you hav e a drink containing alcohol? 2-4 times a month [facility] Functional Status Date Assessment Result Facility 09-20-2014 Are you deaf, or do you have serious difficulty hearing No 09/20/2014 8:14 AM Cara Mejia (Rn) (Hist), RN No [facility] 09-20-2014 Are you blind, or do you have serious difficulty seeing, even when wearing glasses No 09/20/2014 8:14 AM Cara MejiaRn) (Hist), RN No [facility] 09-20-2014 Do you have serious difficulty walking or climbing stairs No 09/20/2014 8:14 AM Cara Mejia (Rn) (Hist), RN No [facility] 09-20-2014 Do you have difficul ty dressing or bathing No 09/20/2014 8:14 AM Cara Mejia (Rn) (Hist), RN No [facility] 09-20-2014 Because of a physica l, mental, or emotional condition, do you have difficulty doing errands alone such as visiting a physician's office or shopping No 09/20/2014 8:14 AM Cara Mejia (Rn) (Hist), RN No [facility] NEGATED: Highlighted row Functional performance Functional status health issues are not documented Disease [employer] Work Phone: Mental Status Date Assessment Result Facility 09-20-2014 Because of a physical, mental, or emotional condition, do you have serious difficulty concentrating, remembering, or making decisions No 09/20/2014 8:14 AM Cara MejiaRn) (Hist), RN No [facility] NEGATED: Highlighted row Cognitive function [Interpretation] Cognitive status health issues are not documented Disease Nutrition-Diabetic The Local Phone: Clinical Notes 04-08-2017 to 12-07-2024 Casie Wilcox MD - 10/16/2024 8:15 AM EDTDischarge Instr - Nursing - Leila Shannon RN - 09/26/2024 12:59 PM EDTDischarge Instr - Nursing - Leila Shannon RN - 09/26/2024 12:59 PM EDT Note Date & Type Note Facility 12-07-2024 Note HNO ID: [id number] Author: VIOLET ALVAREZ MA Service: ? Author Type: Nitrate Operator Type: Progress Notes Filed: 12/07/2024 11:33 Note Text: POPULATION HEALTH NAVIGATION OUTREACH Action/FYI AWV FLU SHOT Lvm/mcm Reason for Outreach Care Gap/HCC or Scheduling Wellness Visits Care Gaps due: Medicare Annual Wellness Visit Flu Vaccine Patient Contacted: Unable or unnecessary to reach patient: Left message NewACT message sent Navigation Signature: Violet Alvarez MA December 07, 2024 11:29 AM [facility] 12-07-2024 Note Patient Outreach (NE TNAV) CAMERON FORBES ([id number]) 1955 Date Time Provider Department 12/07/24 VIOLET ALVAREZ During your visit today, we recorded the following information about you: Violet Alvarez MA 12/07/2024 11:33 AM Signed POPULATION HEALTH NAVIGATION OUTREACH Action/FYI AWV FLU SHOT Lvm/mcm Reason for Outreach Care Gap/HCC or Scheduling Wellness Visits Care Gaps due: Medicare Annual Wellness Visit Flu Vaccine Patient Contacted: Unable or unnecessary to reach patient: Left message NewACT message sent Navigation Signature: Violet Alvarez MA December 07, 2024 11:29 AM Allergies As of Date: 12/07/2024 (No Known Allergies) Date Reviewed: 09/26/2024 Reviewed by: Leila Shannon, SHEA - Fully Assessed Reason for Visit: Population Health Navigation Outreach [3910] Cmt: MMO [employer]ENC [employer]JO Prescriptions as of 12/07/2024 - sildenafil (VIAGRA) 100 mg tablet Take 1 tablet by mouth as needed. - aspirin, enteric coated (ASPIRIN, ENTERIC COATED) 81 mg EC tablet Take 1 tablet by mouth once daily. - multivitamin tablet Take 1 tablet by mouth once daily. 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] 12/05/2013 Dizziness and giddiness [R42] 06/06/2014 01/16/2022 Complex tear of medial meniscus of right knee a*07/16/2015 Chronic pain of right knee [M25.561, G89.29] 07/16/2015 01/16/2022 Multiple thyroid nodules [E04.2] 11/26/2015 Chronic left shoulder pain [M25.512, G89.29] 04/08/2017 01/16/2022 Family history of prostate cancer [Z80.42] 01/16/2022 Chronic right-sided low back pain without sciat*09/22/2022 Degeneration of lumbar intervertebral disc [M51*08/23/2023 Encounter Status:Closed by VIOLET ALVAREZ on 12/07/24 [facility] 10-16-2024 History of Present illness Narrative TELEPHONE FOLLOW-UP ENCOUNTER Cameron Forbes [id number] 1955 has requested a telemedicine follow-up visit. Cameron Forbes verbalized informed consent to proceed with the telemedicine follow-up visit. Cameron Forbes was informed that the details of this telephone visit would be recorded as part of their electronic medical record. Callback number: [phone] CC: Intermittent BRBPR I had a telephone visit with Mr. Forbes today for follow up of colonoscopy done on 09/26/2024 I have reassured patient that no evidence of cancer or polyps found. He is concerned about his intermittent BRBPR;' he was found to have internal hemorrhoids He asks what can be done about this. He denies constipation He notes about 4 BMs per week. He denies straining with bowel movements He states that he sits on the toilet for about 10-15 minutes. PAST MEDICAL HISTORY Diagnosis Date Cognitive changes DDD (degenerative disc disease), lumbar Diverticulosis of colon (without mention of hemorrhage) Elevated LDL cholesterol level Internal hemorrhoids without mention of complication PAST SURGICAL HISTORY Procedure Laterality Date COLONOSCOPY FLX DX W/COLLJ SPEC WHEN PFRMD 10/05/2005 Colonoscopy COLONOSCOPY FLX DX W/COLLJ SPEC WHEN PFRMD N/A 12/17/2014 Colonoscopy to repeat in 10 years PAST SURGICAL HISTORY OF age early 20's hemorrhoid surgery SIGMOIDOSCOPY FLX DX W/COLLJ SPEC BR/WA IF PFRMD 03/10/1999 Sigmoidoscopy FAMILY HISTORY Problem Relation Age of Onset Hypertension Mother Ischemic Heart Disease Mother late 60's, [place] 86 Hypertension Father other (benign breast tumors) Sister No Known Problems Sister Breast Cancer Sister Prostate Cancer Brother Coronary Artery Disease Brother Hyperlipidemia Brother No Known Problems Maternal Grandmother No Known Problems Maternal Grandfather No Known Problems Paternal Grandmother No Known Problems Paternal Grandfather Ischemic Heart Disease Paternal Uncle age 50-51 Colon Cancer Other none Prostate Cancer Other none SOCIAL HISTORY[1] Current Outpatient Medications Medication Sig Dispense Refill sildenafil (VIAGRA) 100 mg tablet Take 1 tablet by mouth as needed. 6 tablet 11 aspirin, enteric coated (ASPIRIN, ENTERIC COATED) 81 mg EC tablet Take 1 tablet by mouth once daily. multivitamin tablet Take 1 tablet by mouth once daily. No current facility-administered medications for this visit. ALLERGIES No Known Allergies No physical exam performed due to telephone encounter. Assessment IMPRESSION Intermittent blood in stools, recent colonoscopy revealed hemorrhoids PLAN I have recommended the following for conservative treatment of hemorrhoidal disease: Drinking plenty of fluids - 8 - 10 glasses of water per day Avoid caffeinated products - as it will decrease the free water in your body Avoid straining for bowel movements Avoid prolonged sitting on the toilet Adequate fiber (25-30 grams/day) in diet Medical Decision Making: Problems: Low: Stable chronic illness Medical Decision Making Level: 2 - Straightforward . I have confirmed and edited as necessary, the PFSH and ROS obtained by others. Unrelated to E/M, telemedicine, or virtual visit service provided within previous 7 days. No E/M service or procedure anticipated within next 24 hours. Casie Wilcox MD October 16, 2024 8:21 AM [1] Social History Tobacco Use Smoking status: Never Smokeless tobacco: Never Vaping Use Vaping status: Never Used Substance Use Topics Alcohol use: Yes Comment: RARELY Drug use: Never documented in this encounter [facility] 10-16-2024 Note HNO ID: [id number] Author: CASIE WILCOX MD Service: ? Author Type: Physician Type: Progress Notes Filed: 10/18/2024 12:36 Note Text: TELEPHONE FOLLOW-UP ENCOUNTER Cameron Forbes [id number] 1955 has requested a telemedicine follow-up visit. Cameron Forbes verbalized informed consent to proceed with the telemedicine follow-up visit. Cameron Forbes was informed that the details of this telephone visit would be recorded as part of their electronic medical record. Callback number: [phone] CC: Intermittent BRBPR I had a telephone visit with Mr. Forbes today for follow up of colonoscopy done on 09/26/2024 I have reassured patient that no evidence of cancer or polyps found. He is concerned about his intermittent BRBPR;' he was found to have internal hemorrhoids He asks what can be done about this. He denies constipation He notes about 4 BMs per week. He denies straining with bowel movements He states that he sits on the toilet for about 10-15 minutes. PAST MEDICAL HISTORY Diagnosis Date Cognitive changes DDD (degenerative disc disease), lumbar Diverticulosis of colon (without mention of hemorrhage) Elevated LDL cholesterol level Internal hemorrhoids without mention of complication PAST SURGICAL HISTORY Procedure Laterality Date COLONOSCOPY FLX DX W/COLLJ SPEC WHEN PFRMD 10/05/2005 Colonoscopy COLONOSCOPY FLX DX W/COLLJ SPEC WHEN PFRMD N/A 12/17/2014 Colonoscopy to repeat in 10 years PAST SURGICAL HISTORY OF age early 20's hemorrhoid surgery SIGMOIDOSCOPY FLX DX W/COLLJ SPEC BR/WA IF PFRMD 03/10/1999 Sigmoidoscopy FAMILY HISTORY Problem Relation Age of Onset Hypertension Mother Ischemic Heart Disease Mother late 60's, [place] 86 Hypertension Father other (benign breast tumors) Sister No Known Problems Sister Breast Cancer Sister Prostate Cancer Brother Coronary Artery Disease Brother Hyperlipidemia Brother No Known Problems Maternal Grandmother No Known Problems Maternal Grandfather No Known Problems Paternal Grandmother No Known Problems Paternal Grandfather Ischemic Heart Disease Paternal Uncle age 50-51 Colon Cancer Other none Prostate Cancer Other none SOCIAL HISTORY[1] Current Outpatient Medications Medication Sig Dispense Refill sildenafil (VIAGRA) 100 mg tablet Take 1 tablet by mouth as needed. 6 tablet 11 aspirin, enteric coated (ASPIRIN, ENTERIC COATED) 81 mg EC tablet Take 1 tablet by mouth once daily. multivitamin tablet Take 1 tablet by mouth once daily. No current facility-administered medications for this visit. ALLERGIES No Known Allergies No physical exam performed due to telephone encounter. Assessment IMPRESSION Intermittent blood in stools, recent colonoscopy revealed hemorrhoids PLAN I have recommended the following for conservative treatment of hemorrhoidal disease: Drinking plenty of fluids - 8 - 10 glasses of water per day Avoid caffeinated products - as it will decrease the free water in your body Avoid straining for bowel movements Avoid prolonged sitting on the toilet Adequate fiber (25-30 grams/day) in diet Medical Decision Making: Problems: Low: Stable chronic illness Medical Decision Making Level: 2 - Straightforward Time spent in the patient encounter - 15 minutes for discussion with patient, review of patient's medical history, and creating appropriate medical documentation. . I have confirmed and edited as necessary, the PFSH and ROS obtained by others. Unrelated to E/M, telemedicine, or virtual visit service provided within previous 7 days. No E/M service or procedure anticipated within next 24 hours. Casie Wilcox MD October 16, 2024 8:21 AM [1] Social History Tobacco Use Smoking status: Never Smokeless tobacco: Never Vaping Use Vaping status: Never Used Substance Use Topics Alcohol use: Yes Comment: RARELY Drug use: Never [facility] 09-26-2024 Note Formatting of this n ote might be different from the original. The patient received a copy of Colonoscopy discharge instructions that contain information for how to contact the physician who performed the procedure and when to seek medical care. [facility] 09-26-2024 Miscellaneous Notes The patient received a copy of Colonoscopy discharge instructions that contain information for how to contact the physician who performed the procedure and when to seek medical care. documented in this encounter [facility] 09-26-2024 Attending History and physical note UPDATED PROCEDURAL SEDATION HISTORY AND PHYSICAL EXAMINATION SERVICE DATE: 09/26/2024 SERVICE TIME: 11:39 PHYSICAL EXAM MUST BE COMPLETED ON ADMISSION PROCEDURE: colonoscopy, possible biopsies Procedure Indications: screening for coloncancer The History and Physical (completed in the past 30 days) has been reviewed and the patient has been examined. The contents accurately reflect the patient's condition with the following additions or revisions since the H&P was completed. ASA Class: ASA Class: Patient with mild systemic disease Examination indicates no changes. AIRWAY: Mouth opening greater than 3 fingerbreadths: Yes Neck Full Range of Motion: Yes LUNGS: Lungs clear to auscultation CARDIAC: Regular rhythm,Regular rate Provisional Diagnosis/Treatment Plan: olnosocpy, possible biopsies This H&P can be found in the EHR SIGNATURE: Casie Wilcox MD PATIENT NAME: Cameron Forbes DATE: September 26, 2024 TIME: 11:42 AM Source Note - Casie Wilcox MD - 09/26/2024 12:00 PM EDT HISTORY AND PHYSICAL Cameron Forbes 1955 REFERRING PHYSICIAN: Billie Aceves,* CHIEF COMPLAINT: Consult HPI: The patient is a 69 year old male referred for endoscopy. Cameron notes occasional blood in his stools He denies chronic abdominal pain. He denies changes in bowel habits. He denies unusual weight loss. He notes no immediate family members with colon cancer. He last had a colonoscopy in 2014. PAST MEDICAL HISTORY PAST MEDICAL HISTORY Diagnosis Date Cognitive changes DDD (degenerative disc disease), lumbar Diverticulosis of colon (without mention of hemorrhage) Elevated LDL cholesterol level Internal hemorrhoids without mention of complication PAST SURGICAL HISTORY PAST SURGICAL HISTORY Procedure Laterality Date COLONOSCOPY FLX DX W/COLLJ SPEC WHEN PFRMD 10/05/2005 Colonoscopy COLONOSCOPY FLX DX W/COLLJ SPEC WHEN PFRMD N/A 12/17/2014 Colonoscopy to repeat in 10 years PAST SURGICAL HISTORY OF age early 20's hemorrhoid surgery SIGMOIDOSCOPY FLX DX W/COLLJ SPEC BR/WA IF PFRMD 03/10/1999 Sigmoidoscopy CURRENT MEDICATIONS Current Outpatient Medications Medication Sig sildenafil (VIAGRA) 100 mg tablet Take 1 tablet by mouth as needed. aspirin, enteric coated (ASPIRIN, ENTERIC COATED) 81 mg EC tablet Take 1 tablet by mouth once daily. multivitamin tablet Take 1 tablet by mouth once daily. peg 3350-Electrolytes (GOLYTELY) 236-22.74-6.74 -5.86 gram suspension Take 4,000 mL by mouth one time only for 1 dose. Refer to printed prep instructions from your provider. No current facility-administered medications for this visit. ALLERGIES: Patient has no known allergies. PERSONAL HISTORY: SOCIAL HISTORY Social History Tobacco Use Smoking status: Never Smokeless tobacco: Never Vaping Use Vaping status: Never Used Substance Use Topics Alcohol use: Yes Comment: RARELY Drug use: Never FAMILY HISTORY FAMILY HISTORY Problem Relation Age of Onset Hypertension Mother Ischemic Heart Disease Mother late 60's, [place] 86 Hypertension Father other (benign breast tumors) Sister No Known Problems Sister Breast Cancer Sister Prostate Cancer Brother Coronary Artery Disease Brother Hyperlipidemia Brother No Known Problems Maternal Grandmother No Known Problems Maternal Grandfather No Known Problems Paternal Grandmother No Known Problems Paternal Grandfather Ischemic Heart Disease Paternal Uncle age 50-51 Colon Cancer Other none Prostate Cancer Other none REVIEW OF SYSTEMS: General: The patient denies fatigue, denies weight loss, denies weight gain, denies feeling hot, and denies feelings of cold. Eyes: The patient denies glaucoma, denies eye injury/surgery, wears glasses or contacts. Ear/Nose/Throat: The patient denies allergies, denies hayfever, denies ear infections, and denies bloody noses. Cardiovascular: The patient denies chest pain, denies heart disease, denies high blood pressure,denies cardiac stent, denies prior heart attack, denies irregular heart beat, notes high cholesterol, denies poor circulation, denies heart failure, other cardiac issues, denies claudication, denies cold feet, denies peripheral arterial stent. Respiratory: The patient denies tuberculosis, denies pneumonia, denies frequent cough, denies pulmonary embolism, denies shortness of breath, and denies coughing up blood. Gastrointestinal: The patient denies difficulty swallowing, denies acid reflux, denies ulcers, denies vomiting, denies jaundice/hepatitis, denies gallbladder problems, denies black or tarry stools, denies hemorrhoids, denies bleeding from rectum, denies diverticulitis, denies constipation, denies diarrhea, denies loss of stool control, and denies hernias. Kidney/Bladder: The patient denies kidney stones, denies urine infections, and denies bloody urine. Skin: The patient denies a history of skin cancer, denies bleeding/changing moles, and denies a history of skin rash. Neurologic: The patient denies a history of epilepsy/convulsions, denies headaches, denies head/spinal injuries, and denies stroke/TIA. Psychiatric: The patient denies psychiatric medications, denies depression, and denies voices, denies substance abuse. Endocrine: The patient denies thyroid disorders, denies diabetes, and denies hormonal problems. Hematologic: The patient denies a history of bruising, denies bleeding, and denies anemia, denies blood clots. Infections: The patient denies a history of measles and mumps, denies rheumatic fever, and denies sexually transmitted diseases. Musculoskeletal: The patient denies back pain/injury, denies back problems, denies sciatica, denies knee/foot trouble, denies arthritis, or denies go PHYSICAL EXAMINATION: General: The patient is 69 year old male, well nourished, well hydrated in no acute distress. The patient is oriented to time, place, and person. VITALS: Blood pressure 116/72, pulse 76, temperature 36.6 C (97.9 F), temperature source Temporal, resp. rate 14, height 175.3 cm (5' 9), weight 86.2 kg (190 lb), SpO2 98%. Body mass index is 28.06 kg/m . Head: Normal cephalic, atraumatic Eyes: pupils are equally round, sclera are clear/anicteric Neck is supple with no tracheal deviation Cardiac: normal heart sounds, regular Respiratory: Normal respiratory excursion and pattern. Abdominal exam: benign Extremities: no clubbing, cyanosis or edema. Neuro: non focal Psych: normal mood The sensitive examination was discussed with the Patient or Patient's Authorized Semiautomatic Stitcher Operator. As applicable, any other physician, advance practice provider, medical student, or other health professional student that will be observing or involved in the sensitive examination for educational or training purposes was discussed with the Patient or Authorized Semiautomatic Stitcher Operator. The Patient or Authorized Semiautomatic Stitcher Operator has agreed to proceed with the sensitive examination. (Sensitive examination includes inspection and/or palpation of the breasts, pelvis, prostate and anorectal regions) Assessment IMPRESSION: screening for colon cancer PLAN: I have discussed the above with the patient. I have offered colonoscopy , possible biopsies I have explained the procedure to the patient. I have counseled the patient as to the risks of the procedure, including but not limited to: infection, bleeding, injury to any intrabdominal organs such as liver/spleen, perforation of the GI tract, inability to complete the procedure, complications of anesthesia, etc. - the patient understands. The patient wishes to proceed. I have answered all questions to the patient s satisfaction and the patient has no further questions. [facility] 09-26-2024 History and physical note HISTORY AND PHYSICAL Cameron Forbes 1955 REFERRING PHYSICIAN: Billie Aceves,* CHIEF COMPLAINT: Consult HPI: The patient is a 69 year old male referred for endoscopy. Cameron notes occasional blood in his stools He denies chronic abdominal pain. He denies changes in bowel habits. He denies unusual weight loss. He notes no immediate family members with colon cancer. He last had a colonoscopy in 2014. PAST MEDICAL HISTORY PAST MEDICAL HISTORY Diagnosis Date Cognitive changes DDD (degenerative disc disease), lumbar Diverticulosis of colon (without mention of hemorrhage) Elevated LDL cholesterol level Internal hemorrhoids without mention of complication PAST SURGICAL HISTORY PAST SURGICAL HISTORY Procedure Laterality Date COLONOSCOPY FLX DX W/COLLJ SPEC WHEN PFRMD 10/05/2005 Colonoscopy COLONOSCOPY FLX DX W/COLLJ SPEC WHEN PFRMD N/A 12/17/2014 Colonoscopy to repeat in 10 years PAST SURGICAL HISTORY OF age early 20's hemorrhoid surgery SIGMOIDOSCOPY FLX DX W/COLLJ SPEC BR/WA IF PFRMD 03/10/1999 Sigmoidoscopy CURRENT MEDICATIONS Current Outpatient Medications Medication Sig sildenafil (VIAGRA) 100 mg tablet Take 1 tablet by mouth as needed. aspirin, enteric coated (ASPIRIN, ENTERIC COATED) 81 mg EC tablet Take 1 tablet by mouth once daily. multivitamin tablet Take 1 tablet by mouth once daily. peg 3350-Electrolytes (GOLYTELY) 236-22.74-6.74 -5.86 gram suspension Take 4,000 mL by mouth one time only for 1 dose. Refer to printed prep instructions from your provider. No current facility-administered medications for this visit. ALLERGIES: Patient has no known allergies. PERSONAL HISTORY: SOCIAL HISTORY Social History Tobacco Use Smoking status: Never Smokeless tobacco: Never Vaping Use Vaping status: Never Used Substance Use Topics Alcohol use: Yes Comment: RARELY Drug use: Never FAMILY HISTORY FAMILY HISTORY Problem Relation Age of Onset Hypertension Mother Ischemic Heart Disease Mother late 60's, [place] 86 Hypertension Father other (benign breast tumors) Sister No Known Problems Sister Breast Cancer Sister Prostate Cancer Brother Coronary Artery Disease Brother Hyperlipidemia Brother No Known Problems Maternal Grandmother No Known Problems Maternal Grandfather No Known Problems Paternal Grandmother No Known Problems Paternal Grandfather Ischemic Heart Disease Paternal Uncle age 50-51 Colon Cancer Other none Prostate Cancer Other none REVIEW OF SYSTEMS: General: The patient denies fatigue, denies weight loss, denies weight gain, denies feeling hot, and denies feelings of cold. Eyes: The patient denies glaucoma, denies eye injury/surgery, wears glasses or contacts. Ear/Nose/Throat: The patient denies allergies, denies hayfever, denies ear infections, and denies bloody noses. Cardiovascular: The patient denies chest pain, denies heart disease, denies high blood pressure,denies cardiac stent, denies prior heart attack, denies irregular heart beat, notes high cholesterol, denies poor circulation, denies heart failure, other cardiac issues, denies claudication, denies cold feet, denies peripheral arterial stent. Respiratory: The patient denies tuberculosis, denies pneumonia, denies frequent cough, denies pulmonary embolism, denies shortness of breath, and denies coughing up blood. Gastrointestinal: The patient denies difficulty swallowing, denies acid reflux, denies ulcers, denies vomiting, denies jaundice/hepatitis, denies gallbladder problems, denies black or tarry stools, denies hemorrhoids, denies bleeding from rectum, denies diverticulitis, denies constipation, denies diarrhea, denies loss of stool control, and denies hernias. Kidney/Bladder: The patient denies kidney stones, denies urine infections, and denies bloody urine. Skin: The patient denies a history of skin cancer, denies bleeding/changing moles, and denies a history of skin rash. Neurologic: The patient denies a history of epilepsy/convulsions, denies headaches, denies head/spinal injuries, and denies stroke/TIA. Psychiatric: The patient denies psychiatric medications, denies depression, and denies voices, denies substance abuse. Endocrine: The patient denies thyroid disorders, denies diabetes, and denies hormonal problems. Hematologic: The patient denies a history of bruising, denies bleeding, and denies anemia, denies blood clots. Infections: The patient denies a history of measles and mumps, denies rheumatic fever, and denies sexually transmitted diseases. Musculoskeletal: The patient denies back pain/injury, denies back problems, denies sciatica, denies knee/foot trouble, denies arthritis, or denies go PHYSICAL EXAMINATION: General: The patient is 69 year old male, well nourished, well hydrated in no acute distress. The patient is oriented to time, place, and person. VITALS: Blood pressure 116/72, pulse 76, temperature 36.6 C (97.9 F), temperature source Temporal, resp. rate 14, height 175.3 cm (5' 9), weight 86.2 kg (190 lb), SpO2 98%. Body mass index is 28.06 kg/m . Head: Normal cephalic, atraumatic Eyes: pupils are equally round, sclera are clear/anicteric Neck is supple with no tracheal deviation Cardiac: normal heart sounds, regular Respiratory: Normal respiratory excursion and pattern. Abdominal exam: benign Extremities: no clubbing, cyanosis or edema. Neuro: non focal Psych: normal mood The sensitive examination was discussed with the Patient or Patient's Authorized Semiautomatic Stitcher Operator. As applicable, any other physician, advance practice provider, medical student, or other health professional student that will be observing or involved in the sensitive examination for educational or training purposes was discussed with the Patient or Authorized Semiautomatic Stitcher Operator. The Patient or Authorized Semiautomatic Stitcher Operator has agreed to proceed with the sensitive examination. (Sensitive examination includes inspection and/or palpation of the breasts, pelvis, prostate and anorectal regions) Assessment IMPRESSION: screening for colon cancer PLAN: I have discussed the above with the patient. I have offered colonoscopy , possible biopsies I have explained the procedure to the patient. I have counseled the patient as to the risks of the procedure, including but not limited to: infection, bleeding, injury to any intrabdominal organs such as liver/spleen, perforation of the GI tract, inability to complete the procedure, complications of anesthesia, etc. - the patient understands. The patient wishes to proceed. I have answered all questions to the patient s satisfaction and the patient has no further questions. [facility] 09-26-2024 History and physical note UPDATED PROCEDURAL SEDATION HISTORY AND PHYSICAL EXAMINATION SERVICE DATE: 09/26/2024 SERVICE TIME: 11:39 PHYSICAL EXAM MUST BE COMPLETED ON ADMISSION PROCEDURE: colonoscopy, possible biopsies Procedure Indications: screening for coloncancer The History and Physical (completed in the past 30 days) has been reviewed and the patient has been examined. The contents accurately reflect the patient's condition with the following additions or revisions since the H&P was completed. ASA Class: ASA Class: Patient with mild systemic disease Examination indicates no changes. AIRWAY: Mouth opening greater than 3 fingerbreadths: Yes Neck Full Range of Motion: Yes LUNGS: Lungs clear to auscultation CARDIAC: Regular rhythm,Regular rate Provisional Diagnosis/Treatment Plan: olnosocpy, possible biopsies This H&P can be found in the EHR SIGNATURE: Casie Wilcox MD PATIENT NAME: Cameron Forbes DATE: September 26, 2024 TIME: 11:42 AM Source Note - Casie Wilcox MD - 09/26/2024 12:00 PM EDT HISTORY AND PHYSICAL Cameron Forbes 1955 REFERRING PHYSICIAN: Billie Aceves,* CHIEF COMPLAINT: Consult HPI: The patient is a 69 year old male referred for endoscopy. Cameron notes occasional blood in his stools He denies chronic abdominal pain. He denies changes in bowel habits. He denies unusual weight loss. He notes no immediate family members with colon cancer. He last had a colonoscopy in 2014. PAST MEDICAL HISTORY PAST MEDICAL HISTORY Diagnosis Date Cognitive changes DDD (degenerative disc disease), lumbar Diverticulosis of colon (without mention of hemorrhage) Elevated LDL cholesterol level Internal hemorrhoids without mention of complication PAST SURGICAL HISTORY PAST SURGICAL HISTORY Procedure Laterality Date COLONOSCOPY FLX DX W/COLLJ SPEC WHEN PFRMD 10/05/2005 Colonoscopy COLONOSCOPY FLX DX W/COLLJ SPEC WHEN PFRMD N/A 12/17/2014 Colonoscopy to repeat in 10 years PAST SURGICAL HISTORY OF age early 20's hemorrhoid surgery SIGMOIDOSCOPY FLX DX W/COLLJ SPEC BR/WA IF PFRMD 03/10/1999 Sigmoidoscopy CURRENT MEDICATIONS Current Outpatient Medications Medication Sig sildenafil (VIAGRA) 100 mg tablet Take 1 tablet by mouth as needed. aspirin, enteric coated (ASPIRIN, ENTERIC COATED) 81 mg EC tablet Take 1 tablet by mouth once daily. multivitamin tablet Take 1 tablet by mouth once daily. peg 3350-Electrolytes (GOLYTELY) 236-22.74-6.74 -5.86 gram suspension Take 4,000 mL by mouth one time only for 1 dose. Refer to printed prep instructions from your provider. No current facility-administered medications for this visit. ALLERGIES: Patient has no known allergies. PERSONAL HISTORY: SOCIAL HISTORY Social History Tobacco Use Smoking status: Never Smokeless tobacco: Never Vaping Use Vaping status: Never Used Substance Use Topics Alcohol use: Yes Comment: RARELY Drug use: Never FAMILY HISTORY FAMILY HISTORY Problem Relation Age of Onset Hypertension Mother Ischemic Heart Disease Mother late 60's, [place] 86 Hypertension Father other (benign breast tumors) Sister No Known Problems Sister Breast Cancer Sister Prostate Cancer Brother Coronary Artery Disease Brother Hyperlipidemia Brother No Known Problems Maternal Grandmother No Known Problems Maternal Grandfather No Known Problems Paternal Grandmother No Known Problems Paternal Grandfather Ischemic Heart Disease Paternal Uncle age 50-51 Colon Cancer Other none Prostate Cancer Other none REVIEW OF SYSTEMS: General: The patient denies fatigue, denies weight loss, denies weight gain, denies feeling hot, and denies feelings of cold. Eyes: The patient denies glaucoma, denies eye injury/surgery, wears glasses or contacts. Ear/Nose/Throat: The patient denies allergies, denies hayfever, denies ear infections, and denies bloody noses. Cardiovascular: The patient denies chest pain, denies heart disease, denies high blood pressure,denies cardiac stent, denies prior heart attack, denies irregular heart beat, notes high cholesterol, denies poor circulation, denies heart failure, other cardiac issues, denies claudication, denies cold feet, denies peripheral arterial stent. Respiratory: The patient denies tuberculosis, denies pneumonia, denies frequent cough, denies pulmonary embolism, denies shortness of breath, and denies coughing up blood. Gastrointestinal: The patient denies difficulty swallowing, denies acid reflux, denies ulcers, denies vomiting, denies jaundice/hepatitis, denies gallbladder problems, denies black or tarry stools, denies hemorrhoids, denies bleeding from rectum, denies diverticulitis, denies constipation, denies diarrhea, denies loss of stool control, and denies hernias. Kidney/Bladder: The patient denies kidney stones, denies urine infections, and denies bloody urine. Skin: The patient denies a history of skin cancer, denies bleeding/changing moles, and denies a history of skin rash. Neurologic: The patient denies a history of epilepsy/convulsions, denies headaches, denies head/spinal injuries, and denies stroke/TIA. Psychiatric: The patient denies psychiatric medications, denies depression, and denies voices, denies substance abuse. Endocrine: The patient denies thyroid disorders, denies diabetes, and denies hormonal problems. Hematologic: The patient denies a history of bruising, denies bleeding, and denies anemia, denies blood clots. Infections: The patient denies a history of measles and mumps, denies rheumatic fever, and denies sexually transmitted diseases. Musculoskeletal: The patient denies back pain/injury, denies back problems, denies sciatica, denies knee/foot trouble, denies arthritis, or denies go PHYSICAL EXAMINATION: General: The patient is 69 year old male, well nourished, well hydrated in no acute distress. The patient is oriented to time, place, and person. VITALS: Blood pressure 116/72, pulse 76, temperature 36.6 C (97.9 F), temperature source Temporal, resp. rate 14, height 175.3 cm (5' 9), weight 86.2 kg (190 lb), SpO2 98%. Body mass index is 28.06 kg/m . Head: Normal cephalic, atraumatic Eyes: pupils are equally round, sclera are clear/anicteric Neck is supple with no tracheal deviation Cardiac: normal heart sounds, regular Respiratory: Normal respiratory excursion and pattern. Abdominal exam: benign Extremities: no clubbing, cyanosis or edema. Neuro: non focal Psych: normal mood The sensitive examination was discussed with the Patient or Patient's Authorized Semiautomatic Stitcher Operator. As applicable, any other physician, advance practice provider, medical student, or other health professional student that will be observing or involved in the sensitive examination for educational or training purposes was discussed with the Patient or Authorized Semiautomatic Stitcher Operator. The Patient or Authorized Semiautomatic Stitcher Operator has agreed to proceed with the sensitive examination. (Sensitive examination includes inspection and/or palpation of the breasts, pelvis, prostate and anorectal regions) Assessment IMPRESSION: screening for colon cancer PLAN: I have discussed the above with the patient. I have offered colonoscopy , possible biopsies I have explained the procedure to the patient. I have counseled the patient as to the risks of the procedure, including but not limited to: infection, bleeding, injury to any intrabdominal organs such as liver/spleen, perforation of the GI tract, inability to complete the procedure, complications of anesthesia, etc. - the patient understands. The patient wishes to proceed. I have answered all questions to the patient s satisfaction and the patient has no further questions. HISTORY AND PHYSICAL Cameron Forbes 1955 REFERRING PHYSICIAN: Billie Aceves,* CHIEF COMPLAINT: Consult HPI: The patient is a 69 year old male referred for endoscopy. Cameron notes occasional blood in his stools He denies chronic abdominal pain. He denies changes in bowel habits. He denies unusual weight loss. He notes no immediate family members with colon cancer. He last had a colonoscopy in 2014. PAST MEDICAL HISTORY PAST MEDICAL HISTORY Diagnosis Date Cognitive changes DDD (degenerative disc disease), lumbar Diverticulosis of colon (without mention of hemorrhage) Elevated LDL cholesterol level Internal hemorrhoids without mention of complication PAST SURGICAL HISTORY PAST SURGICAL HISTORY Procedure Laterality Date COLONOSCOPY FLX DX W/COLLJ SPEC WHEN PFRMD 10/05/2005 Colonoscopy COLONOSCOPY FLX DX W/COLLJ SPEC WHEN PFRMD N/A 12/17/2014 Colonoscopy to repeat in 10 years PAST SURGICAL HISTORY OF age early 20's hemorrhoid surgery SIGMOIDOSCOPY FLX DX W/COLLJ SPEC BR/WA IF PFRMD 03/10/1999 Sigmoidoscopy CURRENT MEDICATIONS Current Outpatient Medications Medication Sig sildenafil (VIAGRA) 100 mg tablet Take 1 tablet by mouth as needed. aspirin, enteric coated (ASPIRIN, ENTERIC COATED) 81 mg EC tablet Take 1 tablet by mouth once daily. multivitamin tablet Take 1 tablet by mouth once daily. peg 3350-Electrolytes (GOLYTELY) 236-22.74-6.74 -5.86 gram suspension Take 4,000 mL by mouth one time only for 1 dose. Refer to printed prep instructions from your provider. No current facility-administered medications for this visit. ALLERGIES: Patient has no known allergies. PERSONAL HISTORY: SOCIAL HISTORY Social History Tobacco Use Smoking status: Never Smokeless tobacco: Never Vaping Use Vaping status: Never Used Substance Use Topics Alcohol use: Yes Comment: RARELY Drug use: Never FAMILY HISTORY FAMILY HISTORY Problem Relation Age of Onset Hypertension Mother Ischemic Heart Disease Mother late 60's, [place] 86 Hypertension Father other (benign breast tumors) Sister No Known Problems Sister Breast Cancer Sister Prostate Cancer Brother Coronary Artery Disease Brother Hyperlipidemia Brother No Known Problems Maternal Grandmother No Known Problems Maternal Grandfather No Known Problems Paternal Grandmother No Known Problems Paternal Grandfather Ischemic Heart Disease Paternal Uncle age 50-51 Colon Cancer Other none Prostate Cancer Other none REVIEW OF SYSTEMS: General: The patient denies fatigue, denies weight loss, denies weight gain, denies feeling hot, and denies feelings of cold. Eyes: The patient denies glaucoma, denies eye injury/surgery, wears glasses or contacts. Ear/Nose/Throat: The patient denies allergies, denies hayfever, denies ear infections, and denies bloody noses. Cardiovascular: The patient denies chest pain, denies heart disease, denies high blood pressure,denies cardiac stent, denies prior heart attack, denies irregular heart beat, notes high cholesterol, denies poor circulation, denies heart failure, other cardiac issues, denies claudication, denies cold feet, denies peripheral arterial stent. Respiratory: The patient denies tuberculosis, denies pneumonia, denies frequent cough, denies pulmonary embolism, denies shortness of breath, and denies coughing up blood. Gastrointestinal: The patient denies difficulty swallowing, denies acid reflux, denies ulcers, denies vomiting, denies jaundice/hepatitis, denies gallbladder problems, denies black or tarry stools, denies hemorrhoids, denies bleeding from rectum, denies diverticulitis, denies constipation, denies diarrhea, denies loss of stool control, and denies hernias. Kidney/Bladder: The patient denies kidney stones, denies urine infections, and denies bloody urine. Skin: The patient denies a history of skin cancer, denies bleeding/changing moles, and denies a history of skin rash. Neurologic: The patient denies a history of epilepsy/convulsions, denies headaches, denies head/spinal injuries, and denies stroke/TIA. Psychiatric: The patient denies psychiatric medications, denies depression, and denies voices, denies substance abuse. Endocrine: The patient denies thyroid disorders, denies diabetes, and denies hormonal problems. Hematologic: The patient denies a history of bruising, denies bleeding, and denies anemia, denies blood clots. Infections: The patient denies a history of measles and mumps, denies rheumatic fever, and denies sexually transmitted diseases. Musculoskeletal: The patient denies back pain/injury, denies back problems, denies sciatica, denies knee/foot trouble, denies arthritis, or denies go PHYSICAL EXAMINATION: General: The patient is 69 year old male, well nourished, well hydrated in no acute distress. The patient is oriented to time, place, and person. VITALS: Blood pressure 116/72, pulse 76, temperature 36.6 C (97.9 F), temperature source Temporal, resp. rate 14, height 175.3 cm (5' 9), weight 86.2 kg (190 lb), SpO2 98%. Body mass index is 28.06 kg/m . Head: Normal cephalic, atraumatic Eyes: pupils are equally round, sclera are clear/anicteric Neck is supple with no tracheal deviation Cardiac: normal heart sounds, regular Respiratory: Normal respiratory excursion and pattern. Abdominal exam: benign Extremities: no clubbing, cyanosis or edema. Neuro: non focal Psych: normal mood The sensitive examination was discussed with the Patient or Patient's Authorized Semiautomatic Stitcher Operator. As applicable, any other physician, advance practice provider, medical student, or other health professional student that will be observing or involved in the sensitive examination for educational or training purposes was discussed with the Patient or Authorized Semiautomatic Stitcher Operator. The Patient or Authorized Semiautomatic Stitcher Operator has agreed to proceed with the sensitive examination. (Sensitive examination includes inspection and/or palpation of the breasts, pelvis, prostate and anorectal regions) Assessment IMPRESSION: screening for colon cancer PLAN: I have discussed the above with the patient. I have offered colonoscopy , possible biopsies I have explained the procedure to the patient. I have counseled the patient as to the risks of the procedure, including but not limited to: infection, bleeding, injury to any intrabdominal organs such as liver/spleen, perforation of the GI tract, inability to complete the procedure, complications of anesthesia, etc. - the patient understands. The patient wishes to proceed. I have answered all questions to the patient s satisfaction and the patient has no further questions. documented in this encounter [facility] 09-05-2024 Telephone encounter Note Patient informed and verbalized understanding. Eneida Berger MA [facility] 09-05-2024 Miscellaneous Notes Patient informed and verbalized understanding. Eneida Berger MA ----- Message from Billie Aceves MD sent at 09/05/2024 1:40 PM EDT ----- FOBT positive for blood in stool. Patient seen by general surgery yesterday and is being scheduled for colonoscopy. I would have him proceed with this and call with worsening bleeding symptoms. Notified via [employer]. Will leave open till pt has read message. Hallie Mayer MA ----- Message from Billie Aceves MD sent at 09/04/2024 7:05 AM EDT ----- Labs to workup rectal bleeding are normal. No anemia or signs of inflammation. Continue with recommendations discussed in office. documented in this encounter [facility] 09-05-2024 Telephone encounter Note ----- Message from Billie Aceves MD sent at 09/05/2024 1:40 PM EDT ----- FOBT positive for blood in stool. Patient seen by general surgery yesterday and is being scheduled for colonoscopy. I would have him proceed with this and call with worsening bleeding symptoms. [facility] 09-04-2024 Telephone encounter Note Notified via [employer]. Will leave open till pt has read message. Hallie Mayer MA [facility] 09-04-2024 Telephone encounter Note ----- Message from Billie Aceves MD sent at 09/04/2024 7:05 AM EDT ----- Labs to workup rectal bleeding are normal. No anemia or signs of inflammation. Continue with recommendations discussed in office. [facility] 09-04-2024 Note HNO ID: [id number] Author: MARYANN PEDRO RN Service: ? Author Type: Registered Nurse Type: Progress Notes Filed: 09/06/2024 11:33 Note Text: REVIEW OF SYSTEMS: General: The patient denies fatigue, denies weight loss, denies weight gain, denies feeling hot, and denies feelings of cold. Eyes: The patient denies glaucoma, denies eye injury/surgery, wears glasses or contacts. Ear/Nose/Throat: The patient denies allergies, denies hayfever, denies ear infections, and denies bloody noses. Cardiovascular: The patient denies chest pain, denies heart disease, denies high blood pressure,denies cardiac stent, denies prior heart attack, denies irregular heart beat, denies high cholesterol, denies poor circulation, denies heart failure, other cardiac issues, denies claudication, denies cold feet, denies peripheral arterial stent. Respiratory: The patient denies tuberculosis, denies pneumonia, denies frequent cough, denies pulmonary embolism, denies shortness of breath, and denies coughing up blood. Gastrointestinal: The patient denies difficulty swallowing, denies acid reflux, denies ulcers, denies vomiting, denies jaundice/hepatitis, denies gallbladder problems, denies black or tarry stools, denies hemorrhoids, denies bleeding from rectum, denies diverticulitis, denies constipation, denies diarrhea, denies loss of stool control, and denies hernias. Kidney/Bladder: The patient denies kidney stones, denies urine infections, and denies bloody urine. Skin: The patient denies a history of skin cancer, denies bleeding/changing moles, and denies a history of skin rash. Neurologic: The patient denies a history of epilepsy/convulsions, denies headaches, denies head/spinal injuries, and denies stroke/TIA. Psychiatric: The patient denies psychiatric medications, denies depression, and denies voices, denies substance abuse. Endocrine: The patient denies thyroid disorders, denies diabetes, and denies hormonal problems. Hematologic: The patient denies a history of bruising, denies bleeding, and denies anemia, denies blood clots. Infections: The patient denies a history of measles and mumps, denies rheumatic fever, and denies sexually transmitted diseases. Musculoskeletal: The patient denies back pain/injury, denies back problems, denies sciatica, denies knee/foot trouble, denies arthritis, or denies gout. When was patient's last Mammogram screening? N/A Last Colonoscopy: Maryann Pedro RN [facility] 09-04-2024 History of Present illness Narrative REVIEW OF SYSTEMS: General: The patient denies fatigue, denies weight loss, denies weight gain, denies feeling hot, and denies feelings of cold. Eyes: The patient denies glaucoma, denies eye injury/surgery, wears glasses or contacts. Ear/Nose/Throat: The patient denies allergies, denies hayfever, denies ear infections, and denies bloody noses. Cardiovascular: The patient denies chest pain, denies heart disease, denies high blood pressure,denies cardiac stent, denies prior heart attack, denies irregular heart beat, denies high cholesterol, denies poor circulation, denies heart failure, other cardiac issues, denies claudication, denies cold feet, denies peripheral arterial stent. Respiratory: The patient denies tuberculosis, denies pneumonia, denies frequent cough, denies pulmonary embolism, denies shortness of breath, and denies coughing up blood. Gastrointestinal: The patient denies difficulty swallowing, denies acid reflux, denies ulcers, denies vomiting, denies jaundice/hepatitis, denies gallbladder problems, denies black or tarry stools, denies hemorrhoids, denies bleeding from rectum, denies diverticulitis, denies constipation, denies diarrhea, denies loss of stool control, and denies hernias. Kidney/Bladder: The patient denies kidney stones, denies urine infections, and denies bloody urine. Skin: The patient denies a history of skin cancer, denies bleeding/changing moles, and denies a history of skin rash. Neurologic: The patient denies a history of epilepsy/convulsions, denies headaches, denies head/spinal injuries, and denies stroke/TIA. Psychiatric: The patient denies psychiatric medications, denies depression, and denies voices, denies substance abuse. Endocrine: The patient denies thyroid disorders, denies diabetes, and denies hormonal problems. Hematologic: The patient denies a history of bruising, denies bleeding, and denies anemia, denies blood clots. Infections: The patient denies a history of measles and mumps, denies rheumatic fever, and denies sexually transmitted diseases. Musculoskeletal: The patient denies back pain/injury, denies back problems, denies sciatica, denies knee/foot trouble, denies arthritis, or denies gout. When was patient's last Mammogram screening? N/A\ Last Colonoscopy: Maryann Pedro RN HISTORY AND PHYSICAL Cameron Forbes 1955 REFERRING PHYSICIAN: Billie Aceves,* CHIEF COMPLAINT: Consult HPI: The patient is a 69 year old male referred for endoscopy. Cameron notes occasional blood in his stools He denies chronic abdominal pain. He denies changes in bowel habits. He denies unusual weight loss. He notes no immediate family members with colon cancer. He last had a colonoscopy in 2014. PAST MEDICAL HISTORY Diagnosis Date Cognitive changes DDD (degenerative disc disease), lumbar Diverticulosis of colon (without mention of hemorrhage) Elevated LDL cholesterol level Internal hemorrhoids without mention of complication PAST SURGICAL HISTORY Procedure Laterality Date COLONOSCOPY FLX DX W/COLLJ SPEC WHEN PFRMD 10/05/2005 Colonoscopy COLONOSCOPY FLX DX W/COLLJ SPEC WHEN PFRMD N/A 12/17/2014 Colonoscopy to repeat in 10 years PAST SURGICAL HISTORY OF age early 20's hemorrhoid surgery SIGMOIDOSCOPY FLX DX W/COLLJ SPEC BR/WA IF PFRMD 03/10/1999 Sigmoidoscopy Current Outpatient Medications Medication Sig sildenafil (VIAGRA) 100 mg tablet Take 1 tablet by mouth as needed. aspirin, enteric coated (ASPIRIN, ENTERIC COATED) 81 mg EC tablet Take 1 tablet by mouth once daily. multivitamin tablet Take 1 tablet by mouth once daily. peg 3350-Electrolytes (GOLYTELY) 236-22.74-6.74 -5.86 gram suspension Take 4,000 mL by mouth one time only for 1 dose. Refer to printed prep instructions from your provider. No current facility-administered medications for this visit. ALLERGIES: Patient has no known allergies. PERSONAL HISTORY: Social History Tobacco Use Smoking status: Never Smokeless tobacco: Never Vaping Use Vaping status: Never Used Substance Use Topics Alcohol use: Yes Comment: RARELY Drug use: Never FAMILY HISTORY Problem Relation Age of Onset Hypertension Mother Ischemic Heart Disease Mother late 60's, [place] 86 Hypertension Father other (benign breast tumors) Sister No Known Problems Sister Breast Cancer Sister Prostate Cancer Brother Coronary Artery Disease Brother Hyperlipidemia Brother No Known Problems Maternal Grandmother No Known Problems Maternal Grandfather No Known Problems Paternal Grandmother No Known Problems Paternal Grandfather Ischemic Heart Disease Paternal Uncle age 50-51 Colon Cancer Other none Prostate Cancer Other none REVIEW OF SYSTEMS: General: The patient denies fatigue, denies weight loss, denies weight gain, denies feeling hot, and denies feelings of cold. Eyes: The patient denies glaucoma, denies eye injury/surgery, wears glasses or contacts. Ear/Nose/Throat: The patient denies allergies, denies hayfever, denies ear infections, and denies bloody noses. Cardiovascular: The patient denies chest pain, denies heart disease, denies high blood pressure,denies cardiac stent, denies prior heart attack, denies irregular heart beat, notes high cholesterol, denies poor circulation, denies heart failure, other cardiac issues, denies claudication, denies cold feet, denies peripheral arterial stent. Respiratory: The patient denies tuberculosis, denies pneumonia, denies frequent cough, denies pulmonary embolism, denies shortness of breath, and denies coughing up blood. Gastrointestinal: The patient denies difficulty swallowing, denies acid reflux, denies ulcers, denies vomiting, denies jaundice/hepatitis, denies gallbladder problems, denies black or tarry stools, denies hemorrhoids, denies bleeding from rectum, denies diverticulitis, denies constipation, denies diarrhea, denies loss of stool control, and denies hernias. Kidney/Bladder: The patient denies kidney stones, denies urine infections, and denies bloody urine. Skin: The patient denies a history of skin cancer, denies bleeding/changing moles, and denies a history of skin rash. Neurologic: The patient denies a history of epilepsy/convulsions, denies headaches, denies head/spinal injuries, and denies stroke/TIA. Psychiatric: The patient denies psychiatric medications, denies depression, and denies voices, denies substance abuse. Endocrine: The patient denies thyroid disorders, denies diabetes, and denies hormonal problems. Hematologic: The patient denies a history of bruising, denies bleeding, and denies anemia, denies blood clots. Infections: The patient denies a history of measles and mumps, denies rheumatic fever, and denies sexually transmitted diseases. Musculoskeletal: The patient denies back pain/injury, denies back problems, denies sciatica, denies knee/foot trouble, denies arthritis, or denies go PHYSICAL EXAMINATION: General: The patient is 69 year old male, well nourished, well hydrated in no acute distress. The patient is oriented to time, place, and person. VITALS: Blood pressure 116/72, pulse 76, temperature 36.6 C (97.9 F), temperature source Temporal, resp. rate 14, height 175.3 cm (5' 9), weight 86.2 kg (190 lb), SpO2 98%. Body mass index is 28.06 kg/m . Head: Normal cephalic, atraumatic Eyes: pupils are equally round, sclera are clear/anicteric Neck is supple with no tracheal deviation Cardiac: normal heart sounds, regular Respiratory: Normal respiratory excursion and pattern. Abdominal exam: benign Extremities: no clubbing, cyanosis or edema. Neuro: non focal Psych: normal mood The sensitive examination was discussed with the Patient or Patient's Authorized Semiautomatic Stitcher Operator. As applicable, any other physician, advance practice provider, medical student, or other health professional student that will be observing or involved in the sensitive examination for educational or training purposes was discussed with the Patient or Authorized Semiautomatic Stitcher Operator. The Patient or Authorized Semiautomatic Stitcher Operator has agreed to proceed with the sensitive examination. (Sensitive examination includes inspection and/or palpation of the breasts, pelvis, prostate and anorectal regions) Assessment IMPRESSION: screening for colon cancer PLAN: I have discussed the above with the patient. I have offered colonoscopy , possible biopsies I have explained the procedure to the patient. I have counseled the patient as to the risks of the procedure, including but not limited to: infection, bleeding, injury to any intrabdominal organs such as liver/spleen, perforation of the GI tract, inability to complete the procedure, complications of anesthesia, etc. - the patient understands. The patient wishes to proceed. I have answered all questions to the patient s satisfaction and the patient has no further questions. My clinic staff has educated the patient as to the colon cleansing regimen and I have prescribed Golytely for the colon cleansing solution. The patient will be scheduled for the procedure at [facility]. Diagnoses: (Z12.11) Screening for colon cancer (primary encounter diagnosis) (K62.5) Rectal bleeding I have confirmed and edited as necessary, the PFSH and ROS obtained by others. Consultation requested by Dr. Billie Aceves for an opinion regarding patient's screening for colon cancer. My final recommendations will be communicated back to the requesting physician by way of shared Medical record or letter to requesting physician via US mail. Medical Decision Making: Risk: Low: Low risk from testing/treatment Medical Decision Making Level: 2 - Straightforward Casie Wilcox MD REVIEW OF SYSTEMS: General: The patient denies fatigue, denies weight loss, denies weight gain, denies feeling hot, and denies feelings of cold. Eyes: The patient denies glaucoma, denies eye injury/surgery, wears glasses or contacts. Ear/Nose/Throat: The patient denies allergies, denies hayfever, denies ear infections, and denies bloody noses. Cardiovascular: The patient denies chest pain, denies heart disease, denies high blood pressure,denies cardiac stent, denies prior heart attack, denies irregular heart beat, notes high cholesterol, denies poor circulation, denies heart failure, other cardiac issues, denies claudication, denies cold feet, denies peripheral arterial stent. Respiratory: The patient denies tuberculosis, denies pneumonia, denies frequent cough, denies pulmonary embolism, denies shortness of breath, and denies coughing up blood. Gastrointestinal: The patient denies difficulty swallowing, denies acid reflux, denies ulcers, denies vomiting, denies jaundice/hepatitis, denies gallbladder problems, denies black or tarry stools, denies hemorrhoids, denies bleeding from rectum, denies diverticulitis, denies constipation, denies diarrhea, denies loss of stool control, and denies hernias. Kidney/Bladder: The patient denies kidney stones, denies urine infections, and denies bloody urine. Skin: The patient denies a history of skin cancer, denies bleeding/changing moles, and denies a history of skin rash. Neurologic: The patient denies a history of epilepsy/convulsions, denies headaches, denies head/spinal injuries, and denies stroke/TIA. Psychiatric: The patient denies psychiatric medications, denies depression, and denies voices, denies substance abuse. Endocrine: The patient denies thyroid disorders, denies diabetes, and denies hormonal problems. Hematologic: The patient denies a history of bruising, denies bleeding, and denies anemia, denies blood clots. Infections: The patient denies a history of measles and mumps, denies rheumatic fever, and denies sexually transmitted diseases. Musculoskeletal: The patient denies back pain/injury, denies back problems, denies sciatica, denies knee/foot trouble, denies arthritis, or denies gout. When was patient's last Mammogram screening? N/A Last Colonoscopy: 11/2014 Portia Toledo LPN documented in this encounter [facility] 09-04-2024 Note HNO ID: [id number] Author: CASIE WILCOX MD Service: ? Author Type: Physician Type: Progress Notes Filed: 09/06/2024 11:33 Note Text: HISTORY AND PHYSICAL Cameron Forbes 1955 REFERRING PHYSICIAN: Billie Aceves,* CHIEF COMPLAINT: Consult HPI: The patient is a 69 year old male referred for endoscopy. Cameron notes occasional blood in his stools He denies chronic abdominal pain. He denies changes in bowel habits. He denies unusual weight loss. He notes no immediate family members with colon cancer. He last had a colonoscopy in 2014. PAST MEDICAL HISTORY Diagnosis Date Cognitive changes DDD (degenerative disc disease), lumbar Diverticulosis of colon (without mention of hemorrhage) Elevated LDL cholesterol level Internal hemorrhoids without mention of complication PAST SURGICAL HISTORY Procedure Laterality Date COLONOSCOPY FLX DX W/COLLJ SPEC WHEN PFRMD 10/05/2005 Colonoscopy COLONOSCOPY FLX DX W/COLLJ SPEC WHEN PFRMD N/A 12/17/2014 Colonoscopy to repeat in 10 years PAST SURGICAL HISTORY OF age early 20's hemorrhoid surgery SIGMOIDOSCOPY FLX DX W/COLLJ SPEC BR/WA IF PFRMD 03/10/1999 Sigmoidoscopy Current Outpatient Medications Medication Sig sildenafil (VIAGRA) 100 mg tablet Take 1 tablet by mouth as needed. aspirin, enteric coated (ASPIRIN, ENTERIC COATED) 81 mg EC tablet Take 1 tablet by mouth once daily. multivitamin tablet Take 1 tablet by mouth once daily. peg 3350-Electrolytes (GOLYTELY) 236-22.74-6.74 -5.86 gram suspension Take 4,000 mL by mouth one time only for 1 dose. Refer to printed prep instructions from your provider. No current facility-administered medications for this visit. ALLERGIES: Patient has no known allergies. PERSONAL HISTORY: Social History Tobacco Use Smoking status: Never Smokeless tobacco: Never Vaping Use Vaping status: Never Used Substance Use Topics Alcohol use: Yes Comment: RARELY Drug use: Never FAMILY HISTORY Problem Relation Age of Onset Hypertension Mother Ischemic Heart Disease Mother late 60's, [place] 86 Hypertension Father other (benign breast tumors) Sister No Known Problems Sister Breast Cancer Sister Prostate Cancer Brother Coronary Artery Disease Brother Hyperlipidemia Brother No Known Problems Maternal Grandmother No Known Problems Maternal Grandfather No Known Problems Paternal Grandmother No Known Problems Paternal Grandfather Ischemic Heart Disease Paternal Uncle age 50-51 Colon Cancer Other none Prostate Cancer Other none REVIEW OF SYSTEMS: General: The patient denies fatigue, denies weight loss, denies weight gain, denies feeling hot, and denies feelings of cold. Eyes: The patient denies glaucoma, denies eye injury/surgery, wears glasses or contacts. Ear/Nose/Throat: The patient denies allergies, denies hayfever, denies ear infections, and denies bloody noses. Cardiovascular: The patient denies chest pain, denies heart disease, denies high blood pressure,denies cardiac stent, denies prior heart attack, denies irregular heart beat, notes high cholesterol, denies poor circulation, denies heart failure, other cardiac issues, denies claudication, denies cold feet, denies peripheral arterial stent. Respiratory: The patient denies tuberculosis, denies pneumonia, denies frequent cough, denies pulmonary embolism, denies shortness of breath, and denies coughing up blood. Gastrointestinal: The patient denies difficulty swallowing, denies acid reflux, denies ulcers, denies vomiting, denies jaundice/hepatitis, denies gallbladder problems, denies black or tarry stools, denies hemorrhoids, denies bleeding from rectum, denies diverticulitis, denies constipation, denies diarrhea, denies loss of stool control, and denies hernias. Kidney/Bladder: The patient denies kidney stones, denies urine infections, and denies bloody urine. Skin: The patient denies a history of skin cancer, denies bleeding/changing moles, and denies a history of skin rash. Neurologic: The patient denies a history of epilepsy/convulsions, denies headaches, denies head/spinal injuries, and denies stroke/TIA. Psychiatric: The patient denies psychiatric medications, denies depression, and denies voices, denies substance abuse. Endocrine: The patient denies thyroid disorders, denies diabetes, and denies hormonal problems. Hematologic: The patient denies a history of bruising, denies bleeding, and denies anemia, denies blood clots. Infections: The patient denies a history of measles and mumps, denies rheumatic fever, and denies sexually transmitted diseases. Musculoskeletal: The patient denies back pain/injury, denies back problems, denies sciatica, denies knee/foot trouble, denies arthritis, or denies go PHYSICAL EXAMINATION: General: The patient is 69 year old male, well nourished, well hydrated in no acute distress. The patient is oriented to time, place, and pe (more content not included)... [facility] 09-04-2024 Instructions Casie Wilcox MD - 09/04/2024 11:00 AM EDT COLONOSCOPY BOWEL PREPARATION INSTRUCTIONS GOLYTELY/NULYTELY/TRILYTE/COLYTE Your doctor has scheduled you for a colonoscopy. To have a successful colonoscopy, you must have a clean colon, that is empty. A clean colon allows your doctor to see the entire colon & diagnose issues like polyps or cancer. For doctors, a clean colon is like driving on a judi day; a dirty colon like driving in a storm. It is very important that you follow these instructions exactly, or your colonoscopy might not be as effective, could be canceled, and you may need to do the bowel prep and the colonoscopy again. TRANSPORTATION REQUIREMENTS You are receiving IV sedation. For your safety, a responsible adult escort must accompany you to and from your procedure: Your adult escort MUST be present with you at check-in for your colonoscopy. Your adult escort MUST remain in the endoscopy area until you are discharged. Your adult escort MUST transport you home once you are discharged. You are NOT allowed to operate any form of transportation (i.e. drive a car, bicycle, etc.) or leave the Endoscopy Center ALONE. It is not safe to do so. If you cannot meet these requirements, your procedure will be canceled. MEDICATION REQUIREMENTS For your safety, certain medications will need to be stopped or adjusted before you can have your procedure: BLOOD THINNERS: If you take blood thinners, such as Coumadin (warfarin), Plavix (clopidogrel), Ticlid (ticlopidine hydrochloride), Agrylin (anagrelide), Xarelto (Rivaroxaban), Pradaxa (Dabigatran), Eliquis (Apixaban), or Effient (Prasugrel), contact the physician who is prescribing these medications at least 2 weeks prior to your procedure to discuss any necessary adjustments. DIABETES: If you take medications for diabetes, your dosage may need to be adjusted. If you are being treated for diabetes with insulin, diabetic pills, or other injectable medications do not take your REGULAR dose after midnight on the day of your procedure. If you are taking any other types of insulin such as Lantus, Humalog, NPH (long-acting insulin), or 70/30 insulin, take half your normal dose the day before your procedure. DIABETES/WEIGHT MANAGEMENT: If you take medications for weight-loss, your dosage may need to be adjusted Contact the doctor who prescribes this medication for further instructions. If you take medications for weight-loss like semaglutide (Ozempic, Wegovy, Rybelsus), dulaglutide (Trulicity), liraglutide (Victoza, Saxenda), exenatide (Byetta, Bydureon), or lixisenatide (Adylyxin), stop your medication 1 week prior to your procedure. If you take medications like canagliflozin (Invokana), dapagliflozin (Farxiga, Forxiga), empagliflozin (Jardiance), stop your medication 3 days prior to your procedure. If you take ertugliflozin (Steglatro) stop your medication 4 days prior to your procedure. IRON: If you take iron pills, STOP them 1 week BEFORE your procedure, may resume after. OTHER MEDS: May take all other medications (including aspirin, antibiotics, water pills / diuretics like Lasix or Metolozone, blood pressure meds, etc.) at their usual scheduled time with a sip of water. DIET REQUIREMENTS The day before your colonoscopy, you may have a clear liquid diet (see below). The day of your colonoscopy, you may continue a clear liquid diet until 4 hours before your colonoscopy. Within 3 hours of your colonoscopy, take only any medications (as above) with a sip of water. Clear Liquid Diet Broth (chicken, beef or vegetable broth or bullion. Just the broth, no solids). Water Coffee or Tea (NO milk or creamer), but sugar and sugar substitutes are allowed. Clear liquids including clear, yellow, green, blue (NO red, ) Sodas / soft drinks Gatorade or other sports drinks Nick-Aid or flavored drinks Plain Jell-O or other gelatins Fruit juice (strained; no-pulp) Popsicles or hard candy BOWEL PREPARATION (GOLYTELY/NULYTELY/TRILYTE/COLYTE ) Split Dosing Bowel Prep: This means drinking your bowel prep in two doses. Split dosing helps clean your colon better and makes it less likely that your procedure will be canceled. Fill your prescription for Golytely/Nulytely/Trilyte/Colyte: The afternoon before your colonoscopy, mix the solution and refrigerate. You may add the flavor pack (if present) that came with the bowel preparation. Do not add ice, sugar, or other flavorings to the solution. You will drink your prep in two doses, by several hours. Drink both halves the day prior to the procedure Bowel prep can work differently from person to person. Some people's bowels move slowly and they may need different instructions. Please see your doctor in office or virtually for personalized bowel prep instructions if you have: Medical condition that needs special accommodations Had a poor bowel prep results or failed bowel prep attempts in the past. Had difficulty with anesthesia during the procedure. FREQUENTLY ASKED QUESTIONS Q: What if I suffer from constipation? A: Recommend taking extra laxatives to resolve your constipation days prior to entering the bowel prep day. Q: What if have had prior poor preps results in past? A: Contact your physician as you will likely need additional bowel prep instructions. Q: What if I have motility issues like Parkinson's, MS (multiple sclerosis), wheelchair dependent, etc.? or on medications that slow bowel emptying (narcotics, gabapentin, anticholinergic medications etc.) A: Contact your physician as you will likely need extra time and additional laxatives to complete your bowel prep. Q: What if I cannot drink large volume of liquid? A: Start your prep 2-3 hours earlier to allow yourself more time to complete the entire prep. Q: What if I can't finish my bowel prep? A: If you cannot finish your entire bowel prep, it is likely that your colonoscopy will need to be rescheduled due to poor prep quality. Q: What if I had bariatric surgery? Do I still have to complete the entire prep? A: Yes, gastric bypass surgery involves the stomach & small bowel. You may need to drink smaller amounts, slower (may need more time to complete your bowel prep). Gastric bypass does not alter the length of your colon so you will need to complete the entire bowel prep, it may just take longer time to complete it. Q: What if I am on dialysis? A: Please consult your client relationship consultant prior to scheduling to get instructions pertinent to you. In general, dialysis patients take the PharmAssistantytely bowel prep and have the procedure same day of their dialysis (colonoscopy in AM, dialysis in PM). Q: How do I know if something is considered as clear liquid diet? A: If you can pour it in a glass and you can see through it, it is considered clear liquid Q: Can I eat nuts, seeds, beans, popcorn, dried fruits, vegetables & fruits that have skin peel? A: No, you will need to not eat these items starting 5 days prior to procedure. Q: Can I take Uber/Lyft/taxi/bus home? A: An adult MUST be present with you at check-in for your colonoscopy and remain in the endoscopy area until you are discharged. You can take Uber home only if this adult escort is with you at check in, remain in the endoscopy area until you are discharged, and takes the Uber with you to home. Q: Can I sleep it off here and drive myself home? A: No, you must have an adult with you at time of procedure check in, remain in the endoscopy center during your procedure, and drive you home. You cannot drive a vehicle after your procedure the rest of the day. documented in this encounter [facility] 09-04-2024 Note HNO ID: [id number] Author: PORTIA TOLEDO LPN Service: ? Author Type: LICENSED NURSE Type: Progress Notes Filed: 09/06/2024 11:33 Note Text: REVIEW OF SYSTEMS: General: The patient denies fatigue, denies weight loss, denies weight gain, denies feeling hot, and denies feelings of cold. Eyes: The patient denies glaucoma, denies eye injury/surgery, wears glasses or contacts. Ear/Nose/Throat: The patient denies allergies, denies hayfever, denies ear infections, and denies bloody noses. Cardiovascular: The patient denies chest pain, denies heart disease, denies high blood pressure,denies cardiac stent, denies prior heart attack, denies irregular heart beat, notes high cholesterol, denies poor circulation, denies heart failure, other cardiac issues, denies claudication, denies cold feet, denies peripheral arterial stent. Respiratory: The patient denies tuberculosis, denies pneumonia, denies frequent cough, denies pulmonary embolism, denies shortness of breath, and denies coughing up blood. Gastrointestinal: The patient denies difficulty swallowing, denies acid reflux, denies ulcers, denies vomiting, denies jaundice/hepatitis, denies gallbladder problems, denies black or tarry stools, denies hemorrhoids, denies bleeding from rectum, denies diverticulitis, denies constipation, denies diarrhea, denies loss of stool control, and denies hernias. Kidney/Bladder: The patient denies kidney stones, denies urine infections, and denies bloody urine. Skin: The patient denies a history of skin cancer, denies bleeding/changing moles, and denies a history of skin rash. Neurologic: The patient denies a history of epilepsy/convulsions, denies headaches, denies head/spinal injuries, and denies stroke/TIA. Psychiatric: The patient denies psychiatric medications, denies depression, and denies voices, denies substance abuse. Endocrine: The patient denies thyroid disorders, denies diabetes, and denies hormonal problems. Hematologic: The patient denies a history of bruising, denies bleeding, and denies anemia, denies blood clots. Infections: The patient denies a history of measles and mumps, denies rheumatic fever, and denies sexually transmitted diseases. Musculoskeletal: The patient denies back pain/injury, denies back problems, denies sciatica, denies knee/foot trouble, denies arthritis, or denies gout. When was patient's last Mammogram screening? N/A Last Colonoscopy: 11/2014 Portia Toledo LPN [facility] 08-30-2024 Instructions Billie Aceves MD - 08/30/2024 10:14 AM EDT - Obtain blood work as soon as possible to check for anemia (complete blood count), inflammatory markers, and kidney and liver function. - Complete and return the stool collection kit at home to test for hidden blood in your stool. - Contact the front desk associate to schedule a colonoscopy--and possible upper endoscopy--with the general surgeon, since you re due this year. - Stop the Metamucil fiber supplement for now. - Drink plenty of fluids and eat fiber-rich fruits and vegetables to keep your stools soft and reduce straining. - You may use OTC Preparation H for rectal itching related to hemorrhoids. - If you develop severe abdominal pain, large amounts of rectal bleeding, or bleeding from other sites, go to the emergency department immediately. documented in this encounter [facility] 08-30-2024 Note HNO ID: [id number] Author: BILLIE ACEVES MD Service: ? Author Type: Physician Type: Progress Notes Filed: 08/30/2024 10:30 Note Text: Chief Complaint Patient presents with: Rectal Bleeding: Intermittent rectal bleeding X 3 months. Hx of Hemorrhoids. Recording using [employer] software for draft documentation of the visit was discussed with the patient/authorized lifeline representatives; all questions welcomed and answered. Patient/authorized lifeline representatives agreed to proceed HPI Cameron Forbes is a 69 year old male who presents here today for Above Complaints. Hematochezia: - Noticed bright red blood in stool x3 months. - Occurs approximately once a week, described as a couple drops on the stool. - No blood on toilet paper or in toilet bowl. - Denies melena, hematemesis, hematochezia, or hematuria. - No associated abdominal pain, diarrhea, or constipation. - No recent SOB, lightheadedness, or dizziness. - No recent epistaxis or bleeding gums. - Nocticed pruritus ani, but denies feeling hemorrhoids or lumps. - PMHx of hemorrhoids, with first episode ~50 years ago, treated with cauterization. - Denies current hemorrhoid symptoms. - Last colonoscopy in 2014; next one due in November. - Family history of Crohn's disease in nephew. - Diet includes high intake of fruits and vegetables. - Previously used psyllium fiber supplements; switched to Metamucil ~2 months ago, then stopped due to suspected association with bleeding. Past medical history, appointments, medications, allergies reviewed. Previous Medical History PAST MEDICAL HISTORY Diagnosis Date Diverticulosis of colon (without mention of hemorrhage) Internal hemorrhoids without mention of complication Previous Surgical History PAST SURGICAL HISTORY Procedure Laterality Date COLONOSCOPY FLX DX W/COLLJ SPEC WHEN PFRMD 10/05/2005 Colonoscopy COLONOSCOPY FLX DX W/COLLJ SPEC WHEN PFRMD N/A 12/17/2014 Colonoscopy to repeat in 10 years PAST SURGICAL HISTORY OF age early 20's hemorrhoid surgery SIGMOIDOSCOPY FLX DX W/COLLJ SPEC BR/WA IF PFRMD 03/10/1999 Sigmoidoscopy Family History FAMILY HISTORY Problem Relation Age of Onset Hypertension Mother Ischemic Heart Disease Mother late 60's, [place] 86 Hypertension Father other (benign breast tumors) Sister Breast Cancer Sister Prostate Cancer Brother Coronary Artery Disease Brother Hyperlipidemia Brother Ischemic Heart Disease Paternal Uncle age 50-51 Colon Cancer Other none Prostate Cancer Other none Patient Allergies ALLERGIES No Known Allergies Current Medications Current Outpatient Medications on File Prior to Visit Medication Sig sildenafil (VIAGRA) 100 mg tablet Take 1 tablet by mouth as needed. aspirin, enteric coated (ASPIRIN, ENTERIC COATED) 81 mg EC tablet Take 1 tablet by mouth once daily. multivitamin tablet Take 1 tablet by mouth once daily. No current facility-administered medications on file prior to visit. Social History Social History Tobacco Use Smoking status: Never Smokeless tobacco: Never Substance Use Topics Alcohol use: Yes Comment: RARELY Drug use: No Review of Symptoms REVIEW OF SYSTEMS See HPI EXAM: BP 124/70 Pulse 89 Ht 176.5 cm (5' 9.49) Wt 85.6 kg (188 lb 12.8 oz) SpO2 97% BMI 27.49 kg/m? General Appearance: Well appearing, alert, in no acute distress, well-hydrated, well nourished.. Skin: Skin color, texture, turgor normal, no suspicious rashes or lesions. Abdomen: Normal abdominal exam, Abdomen soft, non-tender. Bowel sounds normal. No masses, organomegaly. Rectal: Negative findings: anal sphincter tone normal, prostate and seminal vesicles non-tender without nodules, Positive findings: fleshy hemorrhoids at 12 and 3 o'clock without bleeding or thrombosis. Small internal hemorrhoids palpable at 6 o'clock. Health Maintenance List Medicare Advantage Annual Wellness Visit due on 03/01/2024 Covid-19 Vaccine( season) due on 01/17/2025 Influenza Vaccine(1) due on 10/30/2024 Colorectal Cancer Screening due on 12/17/2024 Depression Screening due on 01/17/2025 Anxiety Screening due on 01/17/2025 Diabetes Screening due on 01/05/2027 Lipid Screening due on 01/05/2029 RSV Vaccine(1 - 1-dose 75+ series) due on 05/24/2030 DTaP,Tdap,Td Vaccine(4 - Td or Tdap) due on 08/17/2031 Hepatitis C Screening Completed Shingrix Vaccine Completed Pneumococcal Vaccine: 50+ Completed Advance Directive Discussion Discontinued 1. Rectal bleeding (K62.5) 2. External hemorrhoids (K64.4) 3. Internal hemorrhoids (K64.8) - Occasional rectal bleeding noted, with bright red blood observed on stool approximately once a week for the past three months. No associated pain, straining, or changes in bowel habits reported. No history of melena, hematochezia, or systemic symptoms such as dizziness or lightheadedness. - Abdominal examination unremarkable, with no te (more content not included)... [facility] 08-30-2024 History of Present illness Narrative Chief Complaint Patient presents with: Rectal Bleeding: Intermittent rectal bleeding X 3 months. Hx of Hemorrhoids. Recording using [employer] software for draft documentation of the visit was discussed with the patient/authorized lifeline representatives; all questions welcomed and answered. Patient/authorized lifeline representatives agreed to proceed HPI Cameron Forbes is a 69 year old male who presents here today for Above Complaints. Hematochezia: - Noticed bright red blood in stool x3 months. - Occurs approximately once a week, described as a couple drops on the stool. - No blood on toilet paper or in toilet bowl. - Denies melena, hematemesis, hematochezia, or hematuria. - No associated abdominal pain, diarrhea, or constipation. - No recent SOB, lightheadedness, or dizziness. - No recent epistaxis or bleeding gums. - Nocticed pruritus ani, but denies feeling hemorrhoids or lumps. - PMHx of hemorrhoids, with first episode ~50 years ago, treated with cauterization. - Denies current hemorrhoid symptoms. - Last colonoscopy in 2014; next one due in November. - Family history of Crohn's disease in nephew. - Diet includes high intake of fruits and vegetables. - Previously used psyllium fiber supplements; switched to Metamucil ~2 months ago, then stopped due to suspected association with bleeding. Past medical history, appointments, medications, allergies reviewed. Previous Medical History PAST MEDICAL HISTORY Diagnosis Date Diverticulosis of colon (without mention of hemorrhage) Internal hemorrhoids without mention of complication Previous Surgical History PAST SURGICAL HISTORY Procedure Laterality Date COLONOSCOPY FLX DX W/COLLJ SPEC WHEN PFRMD 10/05/2005 Colonoscopy COLONOSCOPY FLX DX W/COLLJ SPEC WHEN PFRMD N/A 12/17/2014 Colonoscopy to repeat in 10 years PAST SURGICAL HISTORY OF age early 20's hemorrhoid surgery SIGMOIDOSCOPY FLX DX W/COLLJ SPEC BR/WA IF PFRMD 03/10/1999 Sigmoidoscopy Family History FAMILY HISTORY Problem Relation Age of Onset Hypertension Mother Ischemic Heart Disease Mother late 60's, [place] 86 Hypertension Father other (benign breast tumors) Sister Breast Cancer Sister Prostate Cancer Brother Coronary Artery Disease Brother Hyperlipidemia Brother Ischemic Heart Disease Paternal Uncle age 50-51 Colon Cancer Other none Prostate Cancer Other none Patient Allergies ALLERGIES No Known Allergies Current Medications Current Outpatient Medications on File Prior to Visit Medication Sig sildenafil (VIAGRA) 100 mg tablet Take 1 tablet by mouth as needed. aspirin, enteric coated (ASPIRIN, ENTERIC COATED) 81 mg EC tablet Take 1 tablet by mouth once daily. multivitamin tablet Take 1 tablet by mouth once daily. No current facility-administered medications on file prior to visit. Social History Social History Tobacco Use Smoking status: Never Smokeless tobacco: Never Substance Use Topics Alcohol use: Yes Comment: RARELY Drug use: No Review of Symptoms REVIEW OF SYSTEMS See HPI EXAM: BP 124/70 Pulse 89 Ht 176.5 cm (5' 9.49) Wt 85.6 kg (188 lb 12.8 oz) SpO2 97% BMI 27.49 kg/m General Appearance: Well appearing, alert, in no acute distress, well-hydrated, well nourished.. Skin: Skin color, texture, turgor normal, no suspicious rashes or lesions. Abdomen: Normal abdominal exam, Abdomen soft, non-tender. Bowel sounds normal. No masses, organomegaly. Rectal: Negative findings: anal sphincter tone normal, prostate and seminal vesicles non-tender without nodules, Positive findings: fleshy hemorrhoids at 12 and 3 o'clock without bleeding or thrombosis. Small internal hemorrhoids palpable at 6 o'clock. Health Maintenance List Medicare Advantage Annual Wellness Visit due on 03/01/2024 Covid-19 Vaccine( - season) due on 01/17/2025 Influenza Vaccine(1) due on 10/30/2024 Colorectal Cancer Screening due on 12/17/2024 Depression Screening due on 01/17/2025 Anxiety Screening due on 01/17/2025 Diabetes Screening due on 01/05/2027 Lipid Screening due on 01/05/2029 RSV Vaccine(1 - 1-dose 75+ series) due on 05/24/2030 DTaP,Tdap,Td Vaccine(4 - Td or Tdap) due on 08/17/2031 Hepatitis C Screening Completed Shingrix Vaccine Completed Pneumococcal Vaccine: 50+ Completed Advance Directive Discussion Discontinued 1. Rectal bleeding (K62.5) 2. External hemorrhoids (K64.4) 3. Internal hemorrhoids (K64.8) - Occasional rectal bleeding noted, with bright red blood observed on stool approximately once a week for the past three months. No associated pain, straining, or changes in bowel habits reported. No history of melena, hematochezia, or systemic symptoms such as dizziness or lightheadedness. - Abdominal examination unremarkable, with no tenderness or palpable masses. Rectal examination revealed small external and internal hemorrhoids, without evidence of active bleeding or fissures. Prostate examination was normal. - Last colonoscopy performed in 2014; patient is due for repeat colonoscopy in November of this year. - Ordered comprehensive blood work, including CBC to assess for anemia, inflammatory markers, and renal and liver function tests. - Provided stool kit for fecal occult blood testing. - Referred to general surgery for colonoscopy and possible upper endoscopy to further evaluate the source of bleeding. - Advised patient to maintain adequate hydration and dietary fiber intake to prevent constipation and minimize hemorrhoidal irritation. - Instructed patient to monitor for any significant changes in symptoms, such as increased bleeding, severe abdominal pain, or systemic signs, and to seek emergency care if these occur. - Patient understands and agrees with the treatment plan. Billie Aceves MD documented in this encounter [facility] 08-28-2024 Telephone encounter Note Spoke with patient, offered tomorrow with Gertrude. He refused. Preferred male provider. Offered Dr Aceves tomorrow, he did not like the times. Scheduled for 08/30/24 Advised if symptoms get worse to call in. Sondra Mojica MA August 28, 2024 5:15 PM [facility] 08-28-2024 Miscellaneous Notes Spoke with patient, offered tomorrow with Gertrude. He refused. Preferred male provider. Offered Dr Aceves tomorrow, he did not like the times. Scheduled for 08/30/24 Advised if symptoms get worse to call in. Sondra Mojica MA August 28, 2024 5:15 PM Needs seen for something like that. Triage Protocol Advised: See provider within 3 days. No appt made at this time. Patient asking if he must be seen-does not feel it necessary to come in. He has no other sx's, does not feel ill. Asking if Gen Surgery consult needs placed for colonoscopy, if labs are needed, or other advise. Please call patient back with reply. Reason for Disposition MILD rectal bleeding (e.g., more than just a few drops or streaks) Answer Assessment - Initial Assessment Questions 1. APPEARANCE of BLOOD: small red droplets in stool 2. AMOUNT: small amounts 3. FREQUENCY: each movement 4. ONSET: > month 5. DIARRHEA:no 6. CONSTIPATION: no 7. RECURRENT SYMPTOMS: 8. BLOOD THINNERS: aspirin daily 9. OTHER SYMPTOMS: none. Denies shock sx's, pain, confusion, vomiting, black or tarry stools, no severe rectal bleeding, no dizziness. Walking 4 miles a day and doing things around the house per usual. Protocols used: Rectal [id number] documented in this encounter [facility] 08-28-2024 Telephone encounter Note Needs seen for something like that. [facility] 08-28-2024 Telephone encounter Note Triage Protocol Advised: See provider within 3 days. No appt made at this time. Patient asking if he must be seen-does not feel it necessary to come in. He has no other sx's, does not feel ill. Asking if Gen Surgery consult needs placed for colonoscopy, if labs are needed, or other advise. Please call patient back with reply. Reason for Disposition MILD rectal bleeding (e.g., more than just a few drops or streaks) Answer Assessment - Initial Assessment Questions 1. APPEARANCE of BLOOD: small red droplets in stool 2. AMOUNT: small amounts 3. FREQUENCY: each movement 4. ONSET: > month 5. DIARRHEA:no 6. CONSTIPATION: no 7. RECURRENT SYMPTOMS: 8. BLOOD THINNERS: aspirin daily 9. OTHER SYMPTOMS: none. Denies shock sx's, pain, confusion, vomiting, black or tarry stools, no severe rectal bleeding, no dizziness. Walking 4 miles a day and doing things around the house per usual. Protocols used: Rectal [id number] [facility] 08-28-2024 Telephone encounter Note Previous c-scope Dr Hutson [facility] 08-28-2024 Miscellaneous Notes Previous c-scope Dr Hutson documented in this encounter [facility] 01-18-2024 Instructions Johanna Oliver APRN.CUFF TURNER MACHINE OPERATOR - 01/18/2024 11:20 AM EST Screening schedule The following prevention plan is recommended: Depression Screening Never done Anxiety Screening Never done Influenza Vaccine(1) due on 10/31/2023 WHAT YOU CAN DO TO PREVENT FALLS Many falls can be prevented. By making some changes, you can lower your chances of falling. Four things YOU can do to prevent falls for you* and your caregiver 1. Begin a regular exercise program Exercise is one of the most important ways to lower your chances of falling. It makes you stronger and helps you feel better. Exercises that improve balance and coordination (like Jatin Chi) are the most helpful. Lack of exercise leads to weakness and increases your chances of falling. Ask your doctor or health care provider about the best type of exercise program for you. 2. Have your health care provider review your medicines Have your doctor or pharmacist review all the medicines you take, even sxsk-dpo-dawsksk medicines. As you get older, the way medicines work in your body can change. Some medicines, or combinations of medicines, can make you sleepy or dizzy and can cause you to fall. 3. Have your vision checked Have your eyes checked by an eye doctor at least once a year. You may be wearing the wrong glasses or have a condition like glaucoma or cataracts that limits your vision. Poor vision can increase your chances of falling. 4. Make your home safer About half of all falls happen at home. To make your home safer: Remove things you can trip over (like papers, books, clothes, and shoes) from stairs and places where you walk. Remove small throw rugs or use double-sided tape to keep the rugs from slipping. Keep items you use often in cabinets you can reach easily without using a step stool. Have grab bars put in next to your toilet and in the tub or shower. Use non-slip mats in the bathtub and on shower floors. Improve the lighting in your home. As you get older, you need brighter lights to see well. Hang light-weight curtains or shades to reduce glare. Have handrails and lights put in on all staircases. Wear shoes both inside and outside the house. Avoid going barefoot or wearing slippers. For more information, contact: Centers for Disease Control and Prevention www.cdc.gov/injury * This information may not apply if you have certain medical conditions. documented in this encounter [facility] 01-18-2024 Note HNO ID: [id number] Author: JOHANNA OLIVER APRN.CNP Service: ? Author Type: Clinical Nurse Specialist Type: Progress Notes Filed: 01/18/2024 12:23 Note Text: Chief Reason For Appointment Patient presents with: Medicare Wellness Exam Cameron Forbes is a 68 year old male who presents for annual exam. Last office visit date: 08/02/2023 Accompanied By self only Have you had any critical events, hospital stays, ER visits, surgeries or procedures since your last visit here in our office: No Specialists/Other Healthcare Providers Seen: Patient Care Team: Issa Vidales MD as PCP - General (Family Medicine) Concerns today: None HPI Wellness visit Active Problems ACTIVE PROBLEM LIST Degeneration of Lumbar Intervertebral Disc - 08/23/2023 Chronic Right-Sided Low Back Pain Without Sciatica - 09/22/2022 Family History of Prostate Cancer - 01/16/2022 Comment: Brother-age 69 Multiple Thyroid Nodules - 11/26/2015 Comment: No further follow up required after 2020 ultrasound. Complex Tear of Medial Meniscus of Right Knee As Current Injury - 07/16/2015 Arthritis of Shoulder Region, Left - 12/05/2013 Diverticulosis of Colon Without Diverticulitis plantar fasciitis - 10/11/2007 Other Affections of Shoulder Region, Not Elsewhere Classified - 01/04/2007 ROS: REVIEW OF SYSTEMS GENERAL: No weight loss, malaise or fevers/chills HEENT: Negative for frequent or significant headaches, No changes in hearing or vision. NECK: Negative for lumps, goiter, pain and significant neck swelling RESPIRATORY: Negative for cough, hemoptysis, wheezing, dyspnea or shortness of breath CARDIOVASCULAR: Negative for chest pain, leg swelling, orthopnea, or palpitations GI: No nausea, vomiting, or diarrhea/constipation. No hematochezia/melena. No heartburn or reflux symptoms. : No history of dysuria, frequency or incontinence, up a couple times at night MUSCULOSKELETAL: Negative for joint pain or swelling. SKIN: Negative for lesions, rash, and itching ENDOCRINE: Negative for cold or heat intolerance, polyuria, polydipsia and goiter NEURO: No history of headaches, syncope, paralysis, seizures or tremors MOOD: Negative for depression, anxiety, or suicidal ideation. PAST MEDICAL HISTORY Diagnosis Date Diverticulosis of colon (without mention of hemorrhage) Internal hemorrhoids without mention of complication PAST SURGICAL HISTORY Procedure Laterality Date COLONOSCOPY FLX DX W/COLLJ SPEC WHEN PFRMD 10/05/2005 Colonoscopy COLONOSCOPY FLX DX W/COLLJ SPEC WHEN PFRMD N/A 12/17/2014 Colonoscopy to repeat in 10 years PAST SURGICAL HISTORY OF age early 20's hemorrhoid surgery SIGMOIDOSCOPY FLX DX W/COLLJ SPEC BR/WA IF PFRMD 03/10/1999 Sigmoidoscopy Medication List Current Outpatient Medications Medication Sig Dispense Refill sildenafil (VIAGRA) 100 mg tablet Take 1 tablet by mouth as needed. 6 tablet 11 aspirin, enteric coated (ASPIRIN, ENTERIC COATED) 81 mg EC tablet Take 1 tablet by mouth once daily. multivitamin tablet Take 1 tablet by mouth once daily. No current facility-administered medications for this visit. Weight Summary: Weight Change: Body mass index is 27.81 kg/m?. Last Wt 01/18/24 : 86.6 kg (191 lb) 08/02/23 : 85.7 kg (189 lb) 01/05/23 : 85.7 kg (189 lb) 01/16/22 : 83.5 kg (184 lb) 07/11/20 : 87.5 kg (193 lb) Smoked only as teen C scope due next Reviewed cholesterol- LDL (fish oil considered) not interested in a statin No falls (only a couple years ago on the ice)- went through PT Physical Exam: General Appearance: well appearing, alert and oriented. Skin: no suspicious lesion, no rash, no open sores Head: normocephalic, no obvious masses, lesions, tenderness or abnormalities. Eyes: Anicteric sclera. Pupils are equally round and reactive to light. Extraocular movements are intact. No nystagmus. Fundi benign. Ears: external ears normal, canals clear, TM's normal. Hearing to conversational voice intact. Nose/Sinuses: nares normal, septum midline, mucosa normal, no drainage or sinus tenderness. Oropharynx: lips, mucosa, and tongue normal, oropharynx normal. Neck: trachea midline, thyroid without mass or nodularity, thyroid moves normally with swallow, no regional lymphadenopathy. Carotids normal upstroke, no bruit or thrill. Back:no pain to palpation of vertebrae, no percussion tenderness over spine. Lungs: Chest rise AND fall symmetrical, Lungs clear to auscultation. No wheezing or rhonchi. No rales. Abdomen: normal bowel sounds, no mass, non-tender Heart: S1S2, no gallop, no rub, no murmur Lymph Nodes: no lymphadenopathy. Ext: no clubbing, cyanosis or edema. NEURO: cranial nerves III-XII intact, no zybuzt-[id number]-[id number] ataxia Mood: bright affect, speech clear, answers questions appropriately SCREENINGS Health Maintenance Listing Depression Screening Anxiety Screening Advance Directive Discussion Influenza Vaccine(1) (more content not included)... [facility] 01-18-2024 History of Present illness Narrative Images from the original note were not included. Chief Reason For Appointment Patient presents with: Medicare Wellness Exam Cameron Forbes is a 68 year old male who presents for annual exam. Last office visit date: 08/02/2023 Accompanied By self only Have you had any critical events, hospital stays, ER visits, surgeries or procedures since your last visit here in our office: No Specialists/Other Healthcare Providers Seen: Patient Care Team: Issa Vidales MD as PCP - General (Family Medicine) Concerns today: None HPI Wellness visit Active Problems ACTIVE PROBLEM LIST Degeneration of Lumbar Intervertebral Disc - 08/23/2023 Chronic Right-Sided Low Back Pain Without Sciatica - 09/22/2022 Family History of Prostate Cancer - 01/16/2022 Comment: Brother-age 69 Multiple Thyroid Nodules - 11/26/2015 Comment: No further follow up required after 2020 ultrasound. Complex Tear of Medial Meniscus of Right Knee As Current Injury - 07/16/2015 Arthritis of Shoulder Region, Left - 12/05/2013 Diverticulosis of Colon Without Diverticulitis plantar fasciitis - 10/11/2007 Other Affections of Shoulder Region, Not Elsewhere Classified - 01/04/2007 ROS: REVIEW OF SYSTEMS GENERAL: No weight loss, malaise or fevers/chills HEENT: Negative for frequent or significant headaches, No changes in hearing or vision. NECK: Negative for lumps, goiter, pain and significant neck swelling RESPIRATORY: Negative for cough, hemoptysis, wheezing, dyspnea or shortness of breath CARDIOVASCULAR: Negative for chest pain, leg swelling, orthopnea, or palpitations GI: No nausea, vomiting, or diarrhea/constipation. No hematochezia/melena. No heartburn or reflux symptoms. : No history of dysuria, frequency or incontinence, up a couple times at night MUSCULOSKELETAL: Negative for joint pain or swelling. SKIN: Negative for lesions, rash, and itching ENDOCRINE: Negative for cold or heat intolerance, polyuria, polydipsia and goiter NEURO: No history of headaches, syncope, paralysis, seizures or tremors MOOD: Negative for depression, anxiety, or suicidal ideation. PAST MEDICAL HISTORY Diagnosis Date Diverticulosis of colon (without mention of hemorrhage) Internal hemorrhoids without mention of complication PAST SURGICAL HISTORY Procedure Laterality Date COLONOSCOPY FLX DX W/COLLJ SPEC WHEN PFRMD 10/05/2005 Colonoscopy COLONOSCOPY FLX DX W/COLLJ SPEC WHEN PFRMD N/A 12/17/2014 Colonoscopy to repeat in 10 years PAST SURGICAL HISTORY OF age early 20's hemorrhoid surgery SIGMOIDOSCOPY FLX DX W/COLLJ SPEC BR/WA IF PFRMD 03/10/1999 Sigmoidoscopy Medication List Current Outpatient Medications Medication Sig Dispense Refill sildenafil (VIAGRA) 100 mg tablet Take 1 tablet by mouth as needed. 6 tablet 11 aspirin, enteric coated (ASPIRIN, ENTERIC COATED) 81 mg EC tablet Take 1 tablet by mouth once daily. multivitamin tablet Take 1 tablet by mouth once daily. No current facility-administered medications for this visit. Weight Summary: Weight Change: Body mass index is 27.81 kg/m . Last Wt 01/18/24 : 86.6 kg (191 lb) 08/02/23 : 85.7 kg (189 lb) 01/05/23 : 85.7 kg (189 lb) 01/16/22 : 83.5 kg (184 lb) 07/11/20 : 87.5 kg (193 lb) Smoked only as teen C scope due next Reviewed cholesterol- LDL (fish oil considered) not interested in a statin No falls (only a couple years ago on the ice)- went through PT Physical Exam: General Appearance: well appearing, alert and oriented. Skin: no suspicious lesion, no rash, no open sores Head: normocephalic, no obvious masses, lesions, tenderness or abnormalities. Eyes: Anicteric sclera. Pupils are equally round and reactive to light. Extraocular movements are intact. No nystagmus. Fundi benign. Ears: external ears normal, canals clear, TM's normal. Hearing to conversational voice intact. Nose/Sinuses: nares normal, septum midline, mucosa normal, no drainage or sinus tenderness. Oropharynx: lips, mucosa, and tongue normal, oropharynx normal. Neck: trachea midline, thyroid without mass or nodularity, thyroid moves normally with swallow, no regional lymphadenopathy. Carotids normal upstroke, no bruit or thrill. Back:no pain to palpation of vertebrae, no percussion tenderness over spine. Lungs: Chest rise & fall symmetrical, Lungs clear to auscultation. No wheezing or rhonchi. No rales. Abdomen: normal bowel sounds, no mass, non-tender Heart: S1S2, no gallop, no rub, no murmur Lymph Nodes: no lymphadenopathy. Ext: no clubbing, cyanosis or edema. NEURO: cranial nerves III-XII intact, no [id number]-[id number] ataxia Mood: bright affect, speech clear, answers questions appropriately SCREENINGS Health Maintenance Listing Depression Screening Anxiety Screening Advance Directive Discussion Influenza Vaccine(1) TEST RESULTS: Lab Studies: Date of lab studies: reviewed. - glucose - potassium - Creatinine, gfr - LFTs Lipid: WBC, H&H, Platelets: A1C: Vitamin D: Other: A/P: ASSESSMENT/PLAN: 1. Wellness examination - ICD9: V70.0, ICD10: Z00.00 (primary diagnosis) - Counseled on healthy diet and regular exercise - PT ED PATIENT INFORMATION 2. Encounter for immunization - ICD9: V03.89, ICD10: Z23 - INFLUENZA VACCINE, PRSV FREE, AGE 65+ YR, HIGH DOSE, TRIVALENT (FLUZONE HIGH-DOSE) 3. Screening for depression - ICD9: V79.0, ICD10: Z13.31 Negative screen - DEPRESSION SCREENING 4. Encounter for screening examination for other mental health and behavioral disorders - ICD9: V79.8, ICD10: Z13.39 Negative screen - ANXIETY SCREENING 5. Medicare annual wellness visit, subsequent - ICD9: V70.0, ICD10: Z00.00 - Counseled on healthy diet and regular exercise 6. Screening for abdominal aortic aneurysm - ICD9: V81.2, ICD10: Z13.6 Non-smoker 7. Screening for cholesterol level - ICD9: V77.91, ICD10: Z13.220 Completed 8. Due next year - ICD9: V76.51, ICD10: Z12.11 RTC placed 9. Screening for diabetes mellitus - ICD9: V77.1, ICD10: Z13.1 Normal glucose 10. Need for hepatitis C screening test - ICD9: V73.89, ICD10: Z11.59 Negative 2018 11. Screening for HIV (human immunodeficiency virus) - ICD9: V73.89, ICD10: Z11.4 Negative 12. Done- WNL - ICD9: V76.44, ICD10: Z12.5 - Counseled on healthy diet and regular exercise 13. Memory changes - ICD9: 780.93, ICD10: R41.3 None 14. Cognitive changes - ICD9: 799.59, ICD10: R41.89 Mini-cog 5 Johanna Oliver APRN.[employer]ACHINE OPERATOR Follow Up Plans: 1 year Cameron Forbes is a 68 year old male here for a Medicare wellness visit. Medicare Health Risk Assessment General Health Very good Exercise: Minutes/Day 40 min Exercise: Days/Week 7 days Alcohol: Daily Use 2-4 times a month Alcohol: Drinks/Day 1 or 2 Alcohol: 6 or more drinks Never Feel off balance No Concerns: Teeth/Dentures No Concerns: Sexual function No Troubled by feelings None of the above Frequency: Eating healthy diet Nearly every day ADLs requiring help None of the above Safety precautions in home/vehicle Yes Smoke, vape, chews tobacco No Difficulty hearing No Difficulty seeing No Current Providers Specialists: I have reviewed specialist-related care of the patient in the medical record. Medical/Family history review Reviewed and updated problem list, medical/surgical/family/social history, medications, and allergies. Opioid use review Opioid Medications (last 90 days) No data to display No opioids Anxiety/Depression screening PHQ-2 Score: 0 (Lower risk for depression) Recommendation: no further intervention at this time Cognitive screening Mini Cog Score: 5 Cognitive screening reviewed and No further action needed (score 3-5). Functional Observation Was the patient's Timed Up & Go test unsteady or >= 12 seconds? No Advance Care Planning Patient did not wish or was not able to name a surrogate decision maker or provide an advance care plan Measurements BP 128/78 Pulse 67 Wt 86.6 kg (191 lb) SpO2 98% BMI 27.81 kg/m Vision Screening: Follows with optometry/ophthalmology Assessment/Plan Medicare annual wellness visit, subsequent (Z00.00) - Counseled on healthy diet and regular exercise - Fall avoidance information provided - Personalized prevention plan provided documented in this encounter [facility] 01-13-2024 Telephone encounter Note Pt agreeable to appt as scheduled. Luna Frey MA [facility] 01-13-2024 Miscellaneous Notes Pt agreeable to appt as scheduled. Luna Frey MA documented in this encounter [facility] 01-11-2024 Telephone encounter Note The patient has been identified by name and date of : Yes Caregiver verified no other encounters exist for this prescription request: Yes Caregiver confirmed with patient/requestor that no other refills are due, in the near future, with this provider at this time: Yes The last office visit in the department: 08/02/2023 Does the patient have a future office visit with this provider/department: Yes 01/18/2024 Requested Prescriptions Pending Prescriptions Disp Refills sildenafil (VIAGRA) 100 mg tablet 6 tablet 11 Sig: Take 1 tablet by mouth as needed. Mary Jane Jaramillo LPN January 11, 2024 4:26 PM [facility] 01-11-2024 Miscellaneous Notes The patient has been identified by name and date of : Yes Caregiver verified no other encounters exist for this prescription request: Yes Caregiver confirmed with patient/requestor that no other refills are due, in the near future, with this provider at this time: Yes The last office visit in the department: 08/02/2023 Does the patient have a future office visit with this provider/department: Yes 01/18/2024 Requested Prescriptions Pending Prescriptions Disp Refills sildenafil (VIAGRA) 100 mg tablet 6 tablet 11 Sig: Take 1 tablet by mouth as needed. Mary Jane Jaramillo LPN January 11, 2024 4:26 PM documented in this encounter [facility] 10-06-2023 History of Present illness Narrative Episode Visit Count: 5 Therapist That Will Accept/Oversee The Plan Of Care: Bennett Connell PT Start of Care Date: 08/23/23 Onset Date: 03/24/22 Plan of Care Certification Date: 09/23/23 Next Certification Due Date: 10/21/23 Patient Identified by Name and Date of : Yes REHABILITATION AND SPORTS THERAPY PHYSICAL THERAPY DISCONTINUANCE OF CARE PLAN OF CARE UPDATE: Assessment: Cameron Forbes is discontinued from Physical Therapy services due to maximal benefit., Patient/Client declining further intervention., and Patient/Clinician mutual decision to discontinue current plan of care.. Patient was seen for 5 visits from Start of Care Date: 08/23/23 to 10/06/2023 and treatment included: Therapeutic exercise, Manual therapy, Self-nursing home management, Patient/Family/Caregiver Education, and Body mechanics training. Updated: 09/23/23 and 10/06/23 Goals for Episode of Care: created on 08/23/23 through 10/04/23 Independent in home exercises. - MET Patient will decrease pain to 0/10 with functional activities to allow patient to improve bending. - Not MET Patient will be able to tolerate bending and all lifting without increased symptoms. - MET Patient will increase strength of core and postural muscles to WFL to allow for unlimited participation in all recreation and exercise. - Partially MET Patient Goals: eliminate pain and learn how to self manage. - Partially MET SUBJECTIVE: Pt reports that his overall condition is unchanged from last session. He reports intermittent compliance with HEP but that he could not do it consistently when he was camping. He denies noticing any benefit from the manual belt traction done last session. He is not interested in continuing with traction. He does have several questions about progression of his HEP and the possible etiology of his symptoms. Pain: Pain Pain Level: (not nimerically rated but unchanged) Pain Location: Low Back/Lumbar Spine - Right (speccifically PSIS) Frequency: Intermittent Post Treatment Pain Post Treatment Pain Level: No Change PROMIS Scales 09/23/2023 08/23/2023 09/22/2022 Higher is Better Phys Func - Score 51 (within normal limits) 53 (within normal limits) 56 (within normal limits) Phys Func - Percentile 54 62 73 Self-Eff Symptom - Score 56 (Average) 59 (Average) 53 (Average) Self-Eff Symptom - Percentile 73 82 62 T-scores: mean of general population = 50. 5 points is clinically meaningfully difference Percentiles provide an indication of how the patient's score ranks in relation to the general population. Higher percentile rankings indicate better function/quality of life. 50th percentile is the average of the general population and indicates half of respondents had a worse score. OBJECTIVE MEASURES WITH LEVEL OF FUNCTION: TREATMENT: Therapeutic Exercise: 1: Therapist completed an extensive review of pt's HEP, how and when to progress strengthening. The intended benefits of stretching for improved flexibility with dressing were reviewed. He was encouraged to continue with HEP using pain as his guide at all times. Future exercise progressions were explained and added to [employer] list. 2: Pt's recent lumbar spine films were explained and all of his questions were answered. 3: *standard planks 4: *prone B alt UE/LE lifts 5: piriformis stretch reviewed and emphasized. 6: Plan of care options were explained in detail and pt elected for d/c from supervised PT. Skilled Intervention: Patient was educated in proper exercise technique and purpose for exercises. Reviewed and educated patient on additions/changes for home exercise program as above (*). Skilled judgment was used in selection of appropriate interventions. Provided written instruction for home exercise program to facilitate proper performance and compliance. Correct performance of therapeutic exercises was facilitated with verbal and visual cuing. Patient education as noted. Billing Therapeutic Exercise Treatment Minutes: 29 Skilled Treatment Time Minutes (timed and untimed codes): 29 Total Session Time (minutes): 29 Session Start Time : 1731 Session Stop Time : 1800 Bennett Connell PT Program_ID:[id number] Access Code: [email or web address] URL: [email or web address] Date: 10-06-2023 Prepared By: Bennett Connell Program Notes Exercises - Lying Prone - 2-3 x daily - 7 x weekly - sets - reps - Static Prone on Elbows - 2-3 x daily - 7 x weekly - sets - reps - Prone Push Ups on Forearms - 2-3 x daily - 7 x weekly - 2 sets - 10 reps - Prone Hip Extension - 2 x daily - 7 x weekly - 2 sets - 10 reps - Supine Bridge with Leg Extension - 2 x daily - 7 x weekly - 2 sets - 10 reps - Kneeling Plank with Feet on Ground - 2 x daily - 7 x weekly - sets - 3 reps - Supine Piriformis Stretch with Foot on Ground - 2-3 x daily - 7 x weekly - sets - 3 reps - Standard Plank - 1-2 x daily - 7 x weekly - sets - 3 reps - Prone Alternating Arm and Leg Lifts - 1-2 x daily - 7 x weekly - 2 sets - 10 reps documented in this encounter [facility] 09-23-2023 History of Present illness Narrative Episode Visit Count: 4 Therapist That Will Accept/Oversee The Plan Of Care: Bennett Connell PT Start of Care Date: 08/23/23 Onset Date: 03/24/22 Plan of Care Certification Date: 09/23/23 Next Certification Due Date: 10/21/23 Patient Identified by Name and Date of : Yes REHABILITATION AND SPORTS THERAPY PHYSICAL THERAPY PROGRESS REPORT PLAN OF CARE UPDATE: Assessment: Cameron Forbes demonstrates minimal improvement in physical activities and recreational activities. He has progressed toward goals. Patient continues to present with impairments in flexibility, overall function, sensation, strength, symptom management, and tissue tenderness that interfere with nothing . Current prognosis is Excellent due to: current objective clinical presentation, good overall health status, positive past response to therapy, within-session changes, good support system/ coping skills. He will benefit from continued skilled therapy services to meet the updated goals for this plan of care as noted below. Updated: 09/23/23 Goals for Episode of Care: created on 08/23/23 through 10/04/23 Independent in home exercises. - MET, will continue and progress to tolerance Patient will decrease pain to 0/10 with functional activities to allow patient to improve bending. - Not MET, will continue Patient will be able to tolerate bending and all lifting without increased symptoms. - MET, will monitor Patient will increase strength of core and postural muscles to WFL to allow for unlimited participation in all recreation and exercise. - Partially MET, will continue Patient Goals: eliminate pain and learn how to self manage. - Partially MET, will continue Patient Goals: eliminate pain and learn how to self manage. Planned Interventions, Frequency, and Duration: 2x/week, 4 weeks Total Number of Visits Planned: 8 Patient to be seen for Therapeutic exercise (06791), Neuromuscular re-education (24288), Manual therapy (11829), Therapeutic activities (21945), Self-nursing home management (29640), Patient/Family/Caregiver Education, Body Mechanics Training, General Conditioning PLAN FOR NEXT VISIT: Continue with therex, assess response to initiation of traction and continue traction prn. Classification Pain Mechanism Classification: Nociceptive Low Back Pain Classification: Symptom Modulation SUBJECTIVE: Pt reports that overall, his symptoms are unchanged since evaluation. He reports continued and persistent pain in the area of R PSIS that is unchanged. He denies any radicular symptoms currently. Later he reported that chronic lateral distal R thigh numbness persists and has not changed. He reports that he has been compliant with HEP 1x day. He denies any functional limitations with bending, lifting, exercise and recreation. Patient Goals: eliminate pain and learn how to self manage. Functional Limitations: nothing Prior Level of Function: Independent without limitations Pain: Pain Pain Level: 2 Pain Location: Low Back/Lumbar Spine - Right (speccifically PSIS) Description: (mild and not functionally limiting) Frequency: Intermittent Post Treatment Pain Post Treatment Pain Level: No Change PROMIS Scales 09/23/2023 08/23/2023 09/22/2022 Higher is Better Phys Func - Score 51 (within normal limits) 53 (within normal limits) 56 (within normal limits) Phys Func - Percentile 54 62 73 Self-Eff Symptom - Score 56 (Average) 59 (Average) 53 (Average) Self-Eff Symptom - Percentile 73 82 62 T-scores: mean of general population = 50. 5 points is clinically meaningfully difference Percentiles provide an indication of how the patient's score ranks in relation to the general population. Higher percentile rankings indicate better function/quality of life. 50th percentile is the average of the general population and indicates half of respondents had a worse score. OBJECTIVE MEASURES WITH LEVEL OF FUNCTION: Posture / Alignment Lumbo - Pelvic Alignment: ASIS and PSIS are level in standing. In supine, ASIS are level and no LLD. Spine Observations R Lumbar Spine Palpation Tenderness: PSIS (posterior superior iliac spine) L Lumbar Spine Palpation Tenderness: No tenderness noted Sensation - Lumbar Sensation: Impaired Sensation Additional Comments: Pt reports persistent and intermittent numbness at lateral distal R thigh. LE Flexibility Flexibility: Hip Internal Rotation Flexibility R Hip Internal Rotation Flexibility: 32 (Pt reported asymmetrical tension in R buttock) L Hip Internal Rotation Flexibility: 34 TREATMENT: Therapeutic Exercise: 1: Retro TM 0.8mph x5 minutes (Pt provided an update on his condition and subjective portion of goals assessed.) 2: HEP was thoroughly reviewed and continuation encouraged to tolerance 3: *supine R piriformis stretch 3x30 seconds 4: Re-assessment results were reviewed and discussed wtih patient. These results were used as rationale for plan of care recommendation. Skilled Intervention: Patient was educated in proper exercise technique and purpose for exercises. Reviewed and educated patient on additions/changes for home exercise program as above (*). Skilled judgment was used in selection of appropriate interventions. Provided written instruction for home exercise program to facilitate proper performance and compliance. Correct performance of therapeutic exercises was facilitated with verbal, visual, and tactile cuing. Patient education as noted. Manual Therapy: Manual Traction: supine manual lumbar belt traction x10 minutes wtih LEs elevated on leg rest and force to patient tolerance. Skilled Intervention: Manual skills to improve joint mobility, ROM, and decrease pain. Utilized anatomy knowledge of the therapist, and assessment of patient's response to intervention. Billing Therapeutic Exercise Treatment Minutes: 37 Manual TherapyTreatment Minutes: 10 Skilled Treatment Time Minutes (timed and untimed codes): 47 Total Session Time (minutes): 47 Session Start Time : 0916 Session Stop Time : 100 Bennett Connell PT Program_ID:[id number] Access Code: [email or web address] URL: [email or web address]/ Date: 09-23-2023 Prepared By: Bennett Connell Program Notes Exercises - Lying Prone - 2-3 x daily - 7 x weekly - sets - reps - Static Prone on Elbows - 2-3 x daily - 7 x weekly - sets - reps - Prone Push Ups on Forearms - 2-3 x daily - 7 x weekly - 2 sets - 10 reps - Prone Hip Extension - 2 x daily - 7 x weekly - 2 sets - 10 reps - Supine Bridge with Leg Extension - 2 x daily - 7 x weekly - 2 sets - 10 reps - Kneeling Plank with Feet on Ground - 2 x daily - 7 x weekly - sets - 3 reps - Supine Piriformis Stretch with Foot on Ground - 2-3 x daily - 7 x weekly - sets - 3 reps documented in this encounter [facility] 09-14-2023 History of Present illness Narrative Episode Visit Count: 3 Therapist That Will Accept/Oversee The Plan Of Care: Bennett Connell PT Start of Care Date: 08/23/23 Onset Date: 03/24/22 Plan of Care Certification Date: 08/23/23 Next Certification Due Date: 10/04/23 Patient Identified by Name and Date of : Yes REHABILITATION AND SPORTS THERAPY PHYSICAL THERAPY TREATMENT NOTE ASSESSMENT: Cameron Forbes tolerated the session with fatigue and expected muscle soreness. He demonstrated improvements in modified planks with feet crossed. The patient will continue to benefit from ongoing skilled physical therapy to progress toward set goals. PLAN FOR NEXT VISIT: Continue with advanced core strengthening. SUBJECTIVE: Pt reports that his back is feeling okay today. Pt states that he has had some pain, has been working on his mower deck. Pt states after completing his session on August 31, he noticed some pain in the posterior aspect of his R knee , sharp but localized, subsided after a couple of days. Pain: Pain Pain Level: 0 Pain Location: Low Back/Lumbar Spine - Right Post Treatment Pain Post Treatment Pain Level: No Change OBJECTIVE MEASURES WITH LEVEL OF FUNCTION: TREATMENT: Therapeutic Exercise: 1: Retro TM 0.8mph x5 minutes (1:1 throughout . Discussed current HEP.) 2: bridging with B alt knee ext 2x10 3: prone lying x3 minutes 4: prone on elbows x3 minutes 5: prone press ups 1x10 and 1x10 with exhale at end range 6: prone B alt hip ext SLR 2x10 7: modified kneeling planks 3x30 seconds with feet crossed and knees bent Skilled Intervention: Patient was educated in proper exercise technique and purpose for exercises. Reviewed and educated patient on additions/changes for home exercise program as above (*). Skilled judgment was used in selection of appropriate interventions. Correct performance of therapeutic exercises was facilitated with verbal and visual cuing. Billing Therapeutic Exercise Treatment Minutes: 41 Skilled Treatment Time Minutes (timed and untimed codes): 41 Total Session Time (minutes): 41 Session Start Time : 933 Session Stop Time : 1014 FLAKO Ayers PT documented in this encounter [facility] 09-01-2023 History of Present illness Narrative Program_ID:[id number] Access Code: [email or web address] URL: [email or web address] Date: 09-01-2023 Prepared By: Bennett Connell Program Notes Exercises - Lying Prone - 2-3 x daily - 7 x weekly - sets - reps - Static Prone on Elbows - 2-3 x daily - 7 x weekly - sets - reps - Prone Push Ups on Forearms - 2-3 x daily - 7 x weekly - 2 sets - 10 reps - Prone Hip Extension - 2 x daily - 7 x weekly - 2 sets - 10 reps - Supine Bridge with Leg Extension - 2 x daily - 7 x weekly - 2 sets - 10 reps - Kneeling Plank with Feet on Ground - 2 x daily - 7 x weekly - sets - 3 reps Episode Visit Count: 2 Therapist That Will Accept/Oversee The Plan Of Care: Bennett Connell PT Start of Care Date: 08/23/23 Onset Date: 03/24/22 Plan of Care Certification Date: 08/23/23 Next Certification Due Date: 10/04/23 Patient Identified by Name and Date of : Yes REHABILITATION AND SPORTS THERAPY PHYSICAL THERAPY TREATMENT NOTE ASSESSMENT: Cameron Forbes tolerated the session with no issues. He demonstrated improvements in exercise tolerance and postural awareness. The patient will continue to benefit from ongoing skilled physical therapy to progress toward set goals. PLAN FOR NEXT VISIT: Review, correct and progress HEP prn. Continue with postural stretching and strengthening with extension directional preference pending pt response to the initial trial of extension. Progress to tolerance, especially strengthening. Consider use of manual lumbar belt traction prn. SUBJECTIVE: Pt reports that overall his low back condition is unchanged since evaluation 08/23/23. He reports partial compliance with HEP but that he has not been able to be as consistent with HEP as he intends. He also reports being required to be busy and active doing things that aggravate his symptoms. He denies any pain to start today. He denies any aggravation of symptoms with HEP, just no relief either. Pain: Pain Pain Level: 0 Pain Location: Low Back/Lumbar Spine - Right Description: (no pain to start today) Frequency: Intermittent Post Treatment Pain Post Treatment Pain Level: No Change OBJECTIVE MEASURES WITH LEVEL OF FUNCTION: TREATMENT: Therapeutic Exercise: 1: Retro TM 0.8mph x5 minutes (Pt provided an update on his condition and plan of care reviewed.) 2: prone lying x3 minutes 3: prone on elbows x3 minutes 4: prone press ups 1x10 and 1x10 with exhale at end range 5: *prone B alt hip ext SLR 2x10 6: *modified kneeling planks 3x30 seconds 7: *bridging with B alt knee ext 2x10 8: stirring the pot standing at Hoist with 2 plates x20 CW and x20 CCW facing both lateral directions 9: Pt was educated on the anatomy of disc and lumbar spine, likely etiology of symptoms and rationale for prone extension therex. Pictures from [employer] Manual used to clarify education, as well as model of person lifting with good and poor body mechanics. Skilled Intervention: Patient was educated in proper exercise technique and purpose for exercises. Reviewed and educated patient on additions/changes for home exercise program as above (*). Skilled judgment was used in selection of appropriate interventions. Provided written instruction for home exercise program to facilitate proper performance and compliance. Correct performance of therapeutic exercises was facilitated with verbal, visual, and tactile cuing. Patient education as noted. Billing Therapeutic Exercise Treatment Minutes: 49 Skilled Treatment Time Minutes (timed and untimed codes): 49 Total Session Time (minutes): 49 Session Start Time : 1722 Session Stop Time : 1811 Bennett Connell PT documented in this encounter [facility] 08-23-2023 History of Present illness Narrative Episode Visit Count: 1 Therapist That Will Accept/Oversee The Plan Of Care: Bennett Connell PT Start of Care Date: 08/23/23 Onset Date: 03/24/22 Plan of Care Certification Date: 08/23/23 Next Certification Due Date: 10/04/23 Patient Identified by Name and Date of : Yes REHABILITATION AND SPORTS THERAPY PHYSICAL THERAPY EVALUATION PLAN OF CARE: Assessment: Cameron Forbes presents with chief complaint of right sided low back pain that interferes with bending, lifting, heavy exertion. He presents with impairments in independence in exercise, overall function, strength, symptom management, and tissue tenderness. PROMIS (Patient-Reported Outcomes Measurement Information System) scores were reviewed and identified as within normal limits. Prognosis for therapy is Excellent due to: current objective clinical presentation, good overall health status, positive past response to therapy, within-session changes, good support system/ coping skills. He will benefit from skilled therapy services to meet the goals established for this plan of care as noted below. Classification Pain Mechanism Classification: Nociceptive Low Back Pain Classification: Symptom Modulation (will transition LORI) Goals for Episode of Care: created on 08/23/23 through 10/04/23 Independent in home exercises. Patient will decrease pain to 0/10 with functional activities to allow patient to improve bending. Patient will be able to tolerate bending and all lifting without increased symptoms. Patient will increase strength of core and postural muscles to WFL to allow for unlimited participation in all recreation and exercise. Patient Goals: eliminate pain and learn how to self manage. Planned Interventions, Frequency, and Duration: Current Frequency: 1x/week Duration: 6 weeks Total Number of Visits Planned: 6 Planned Treatment Interventions: Therapeutic exercise (39541), Neuromuscular re-education (02154), Manual therapy (44074), Therapeutic activities (87701), Self-nursing home management (15009), Patient/Family/Caregiver Education, Body Mechanics Training, General Conditioning PLAN FOR NEXT VISIT: Review, correct and progress HEP prn. Continue with postural stretching and strengthening with extension directional preference pending pt response to the initial trial of extension. Progress to tolerance, especially strengthening. Consider use of manual lumbar belt traction prn. Patient demonstrates good understanding of plan of care and treatment. The above goals and plan of care were discussed and agreed upon by patient/family. SUBJECTIVE: Pt reports that his current R low back pain that was present 1 year ago after a fall on the ice, fully resolved with PT HEP for R piriformis. He reports that in addition to the R piriformis symptoms in L buttock, he has developed an increase in symptoms in R PSIS area that feels different to him. He reports minimal to no functional limitations currently. He reports that he still does a lot of hiking and recently returned from a 6 week trip when he hiked several hundred miles. Pt reports that his symptoms are typically aggravated by bending over and relieved by spine extension movements in various positions. Patient Goals: eliminate pain and learn how to self manage. Functional Limitations: bending, lifting, heavy exertion Prior Level of Function: Independent without limitations Relevant History Employment: Retired Recreation / Current Exercise: hiking and walking Hobbies / Interests: hiking Home Environment Patient Lives With: Spouse Intake Information: Prescription present Previous Treatment: None Red Flags Vertebral Fracture Clinical Reasoning: No identified risk factors Abdominal Aortic Aneurysm Clinical Reasoning: No identified risk factors. Cancer Clinical Reasoning: No identified risk factors. Infection Clinical Reasoning: No identified risk factors. Cauda Equina Syndrome Clinical Reasoning: No identified risk factors. Red Flags - Cervical Cancer Clinical Reasoning: No identified risk factors. Infection Clinical Reasoning: No identified risk factors. Spine History Symptoms Location at Onset: Back Symptoms Since Onset: Unchanging Pain is Worse Always: Bending Pain is Better Always: Lying Pain is Better Sometimes: No position (change positions) Previous Episodes: Yes Previous Spine Episodes: PT one year ago Sleeping Position: Supine, Side lying right, Side lying left Sleep Affected by Pain: Not affected by pain Pain: Pain Pain Level: 2 Pain Location: Low Back/Lumbar Spine - Right Description: Sharp, Stabbing (symptoms have short duration and are not debilitating.) Frequency: Intermittent (bending) Post Treatment Pain Post Treatment Pain Level: No Change PROMIS Scales 08/23/2023 09/22/2022 Higher is Better Phys Func - Score 53 (within normal limits) 56 (within normal limits) Phys Func - Percentile 62 73 Self-Eff Symptom - Score 59 (Average) 53 (Average) Self-Eff Symptom - Percentile 82 62 T-scores: mean of general population = 50. 5 points is clinically meaningfully difference Percentiles provide an indication of how the patient's score ranks in relation to the general population. Higher percentile rankings indicate better function/quality of life. 50th percentile is the average of the general population and indicates half of respondents had a worse score. OBJECTIVE MEASURES WITH LEVEL OF FUNCTION: Posture / Alignment Posture: Forward head, Increased thoracic kyphosis, Rounded shoulders Lumbo - Pelvic Alignment: ASIS and PSIS are level in standing. In supine ASIS are level and no LLD present. Reflexes - Lower Extremity R Patellar: Normal L Patellar: Normal Spine Observations R Lumbar Spine Palpation Tenderness: No tenderness noted L Lumbar Spine Palpation Tenderness: No tenderness noted Sensation - Lumbar Sensation: Grossly Intact, Comments Sensation Additional Comments: Pt reports intermittent numbness in lateral aspect of R thigh. Lumbar Spine AROM Lumbar Flexion: Normal Lumbar Extension: Normal Lumbar R Side-Bend: Normal Lumbar L Side-Bend: Normal Lumbar R Rotation: Normal Lumbar L Rotation: Normal LE Strength Trunk Strength: Pt's reported functional difficulties and reported chronic nature of symptoms indicate that he will benefit from increased core strength. He is very active but still reports clicking and instability in his low back with attempts to plank R LE Strength: No asymmetrical mytomal weakness detected in B LEs at this time. L LE Strength: No asymmetrical mytomal weakness detected in B LEs at this time. Special Tests - Hip and Spine Hip and Spine Special Tests: SLR Test SLR Test: Right Positive, Left Positive Gait Gait Observation: normal Vitals BP: 117/68 Pulse: 81 Education: Education Learning Preferences: Demonstration, Explanation, Printed Materials, Performance Barriers: None Learning/educational needs: Plan of Care, Home exercise program, Lifestyle changes, Posture, Body Mechanics Education Provided: Yes, see treatment interventions for education provided Education Provided To: Patient Education Mode/Type: Demonstration, Explanation/Discussion, Literature/Printed Materials, Performance Response to Education/Teach Back: States/Identifies, Return Demonstration, Requires Review/Additional Education TREATMENT: PT Treatment Interventions: Therapeutic Exercise Evaluation Therapeutic Exercise: 1: Pt was educated extensively on the anatomy of lumbar spine and hip region. He was educated on the likely source of his symptoms and rationale for proposed treatment plan. The proper intensity with all therex was emphasized and he was advised to stop any exercise or activity that causes increased pain. He was educated on the concept of centralization versus peripheralization and that he should stop any exercise that causes peripheral symptoms. Disc mechanics were explained in detail and he was educated on how this impacts his PT plan of care and directional preference. Imaging findings were explained and used to sort out his directional preference. Functional recommendations were made in regards to things that may aggravate or relieve his symptoms. 2: *prone lying x3 minutes 3: *prone on elbows x3 minutes 4: *prone press ups 2x10 Skilled Intervention: Patient was educated in proper exercise technique and purpose for exercises. Reviewed and educated patient on additions/changes for home exercise program as above (*). Skilled judgment was used in selection of appropriate interventions. Provided written instruction for home exercise program to facilitate proper performance and compliance. Correct performance of therapeutic exercises was facilitated with verbal and visual cuing. Patient education as noted. Billing * Evaluation Moderate Complexity: 1 Unit Therapeutic Exercise Treatment Minutes: 29 Skilled Treatment Time Minutes (timed and untimed codes): 59 Total Session Time (minutes): 59 Session Start Time : 0832 Session Stop Time : 09 Bennett Connell PT Program_ID:[id number] Access Code: [email or web address] URL: [email or web address] Date: 08-23-2023 Prepared By: Bennett Connell Program Notes Exercises - Lying Prone - 2-3 x daily - 7 x weekly - sets - reps - Static Prone on Elbows - 2-3 x daily - 7 x weekly - sets - reps - Prone Push Ups on Forearms - 2-3 x daily - 7 x weekly - 2 sets - 10 reps documented in this encounter [facility] 08-02-2023 History of Present illness Narrative Patient presents with: Back Pain HPI: Patient presents today for office visit for followup. Back pain: Above hip on right side. Has been bothersome on and off for over a year. Did have x-ray 08/18/22. Was sent to physical therapy and only attended once. Pain was a little higher than back then. He has been doing well but seemed to resume a year ago. Comes and goes. No numbness or weakness. Is worse when he is at a certain position. No issues controlling bowel or bladder. Uses ibu prn. Note was copied and pasted, without alteration from:note from Annalisa Lindsay 08/18/2022 Acute Visit: R hip x 5 months; fell on the ice in March; using otc pain relievers without much relief Fell on some ice back in March. He continues to have some right lower back/hip pain. Provoked by certain movements. Occ ibuprofen/naproxen. Sometimes some tylenol PM. Sometimes a low-dose ASA. Describes pain in the right lower back. No radiation of the pain. No n/t. No loss of bowel/bladder. Very active lifestyle and does not impede on lifestyle. Exercises regularly. Did stop planking d/t injury. Xray: There are five slh-nqe-pluznea lumbar vertebrae. No fracture or subluxations are noted. The disc spaces are well preserved. There is mild osteophyte formation. Questionable kissing spine. MEDICATIONS: Current Outpatient Medications Medication Sig aspirin, enteric coated (ASPIRIN, ENTERIC COATED) 81 mg EC tablet Take 1 tablet by mouth once daily. sildenafil (VIAGRA) 100 mg tablet Take 1 tablet by mouth as needed. multivitamin tablet Take 1 tablet by mouth once daily. No current facility-administered medications for this visit. ALLERGIES: ALLERGIES No Known Allergies PAST MEDICAL HISTORY Diagnosis Date Diverticulosis of colon (without mention of hemorrhage) Internal hemorrhoids without mention of complication PAST SURGICAL HISTORY Procedure Laterality Date COLONOSCOPY FLX DX W/COLLJ SPEC WHEN PFRMD 10/05/2005 Colonoscopy COLONOSCOPY FLX DX W/COLLJ SPEC WHEN PFRMD N/A 12/17/2014 Colonoscopy to repeat in 10 years PAST SURGICAL HISTORY OF age early 20's hemorrhoid surgery SIGMOIDOSCOPY FLX DX W/COLLJ SPEC BR/WA IF PFRMD 03/10/1999 Sigmoidoscopy FAMILY HISTORY Problem Relation Age of Onset Hypertension Mother Ischemic Heart Disease Mother late 60's, [place] 86 Hypertension Father other (benign breast tumors) Sister Breast Cancer Sister Prostate Cancer Brother Coronary Artery Disease Brother Hyperlipidemia Brother Ischemic Heart Disease Paternal Uncle age 50-51 Colon Cancer Other none Prostate Cancer Other none Social History Tobacco Use Smoking status: Never Smokeless tobacco: Never Substance Use Topics Alcohol use: Yes Comment: RARELY Drug use: No Reviewed current medications, allergies, past medical history, surgical history, family history and social history today. REVIEW OF SYSTEMS All other reviewed and negative other than HPI. VITALS: BP 122/72 Pulse 86 Wt 85.7 kg (189 lb) SpO2 95% BMI 27.52 kg/m Last 4 Encounter Wt Readings: Date: Wt: 01/05/2023 85.7 kg (189 lb) 01/16/2022 83.5 kg (184 lb) 07/11/2020 87.5 kg (193 lb) 01/15/2020 86.2 kg (190 lb) PHYSICAL EXAMINATION: General appearance: Well appearing, alert, in no acute distress, well-hydrated, well nourished. Skin: Skin color, texture, turgor normal, no suspicious rashes or lesions Back: tender over right lower back. Neg slr. Normal dtr's. Normal range of motion. Normal s1 and s2. ASSESSMENT/PLAN: 1. Chronic midline low back pain without sciatica - ICD9: 724.2, 338.29, ICD10: M54.50, G89.29 (primary diagnosis) - resume therapy. - CONSULT TO PHYSICAL THERAPY 2. Screening for prostate cancer - ICD9: V76.44, ICD10: Z12.5 - do labs before yearly check up. - PSA/PROSTATE SPECIFIC ANTIGEN SCREENING 3. Elevated LDL cholesterol level - ICD9: 272.0, ICD10: E78.0 - COMPLETE BLOOD COUNT AND DIFFERENTIAL - COMPREHENSIVE METABOLIC PANEL - LIPID PANEL BASIC 4. DDD (degenerative disc disease), lumbar - ICD9: 722.52, ICD10: M51.36 Call if symptoms worsen at all or if not better in one to two weeks - CONSULT TO PHYSICAL THERAPY Issa Vidales MD documented in this encounter [facility] 07-28-2023 History of Present illness Narrative POPULATION HEALTH NAVIGATION OUTREACH Action/FYI Patient returned call. AWV due in December and he will schedule but needed an appointment for acute back pain. This was scheduled for him. Reason for Outreach Care Gap/HCC or Scheduling Wellness Visits Care Gaps due: Follow-up Appointment Patient Contacted: Spoke to patient/parent/or legal guardian Patient identified by name and : Yes Care Gap/HCC/Scheduling Wellness actions taken: Patient scheduled/pended labs: Follow-up Appointment Navigation Signature: Serina French MA July 28, 2023 8:24 AM documented in this encounter [facility] 06-29-2023 History of Present illness Narrative POPULATION HEALTH NAVIGATION OUTREACH Action/FYI Contacted patient to schedule [place] Annual Wellness Visit, care gaps and HCCs due. 1st attempt: Left message with my direct number 2nd attempt: My Chart message sent Reason for Outreach Care Gap/HCC or Scheduling Wellness Visits Care Gaps due: Medicare Annual Wellness Visit Patient Contacted: Unable or unnecessary to reach patient: Left message [employer] message sent HCC related Navigation Signature: Serina French MA June 29, 2023 3:28 PM documented in this encounter [facility] 01-05-2023 History of Present illness Narrative Cameron Forbes is a 67 year old male here for a Medicare wellness visit. Medicare Health Risk Assessment General Health Exercise: Minutes/Day 40 + Exercise: Days/Week 7 days Alcohol: Daily Use Monthly or less Alcohol: Drinks/Day 1 or 2 Alcohol: 6 or more drinks Never Feel off balance no Concerns: Teeth/Dentures no Concerns: Sexual function no Troubled by feelings no Frequency: Eating healthy diet yes ADLs requiring help no Safety precautions in home/vehicle Not needed. Smoke, vape, chews tobacco No Difficulty hearing no Difficulty seeing no Current Providers Specialists: I have reviewed specialist-related care of the patient in the medical record. Medical/Family history review Reviewed and updated problem list, medical/surgical/family/social history, medications, and allergies. Opioid use review Opioid Medications (last 90 days) Some values may be hidden. Unless noted otherwise, only the newest values recorded on each date are displayed. Opioid Medications No data to display. Depression screening Depression Screening PHQ-2 Score RAMONE-2 Total Score 01/16/2022 0 - Depression screening tool completed and reviewed. Based on score and interview, patient is not at risk for depression. Screening tool discussed with patient, and I recommended no further intervention at this time. Cognitive screening Functional Observation Was the patient's timed Up & Go test unsteady or ? 12 seconds? No Advance Care Planning Surrogate decision maker and/or advance care plan documented Nadira - TENZIN Measurements BP 126/82 Pulse 79 Resp 16 Ht 5' 9.488 (1.77m) Wt 189 lb (85.7kg) SpO2 94% BMI 27.52 kg/(m^2). Additional screenings: No results found. Assessment/Plan Medicare annual wellness visit, subsequent (Z00.00) - Counseled on healthy diet and regular exercise - Fall avoidance information provided - Personalized prevention plan provided Additional Concerns The following concerns were also discussed with the patient: Right lower back pain continues. Went to PT. Very active and questions if it could be from walking on an uneven road. Lumbar spine xray earlier this year with some degenerative changes. REVIEW OF SYSTEMS GENERAL: No weight loss, malaise or fevers/chills HEENT: Negative for frequent or significant headaches, No changes in hearing or vision. NECK: Negative for lumps, goiter, pain and significant neck swelling RESPIRATORY: Negative for cough, hemoptysis, wheezing, dyspnea or shortness of breath CARDIOVASCULAR: Negative for chest pain, leg swelling, orthopnea, or palpitations GI: No nausea, vomiting, or diarrhea/constipation. No hematochezia/melena. No heartburn or reflux symptoms. Last colonoscopy 2015 -- 10 year clearance. : No history of dysuria, frequency or incontinence. Up 1-2 at night. MUSCULOSKELETAL: Negative for joint pain or swelling. Right lower back pain. SKIN: Negative for lesions, rash, and itching ENDOCRINE: Negative for cold or heat intolerance, polyuria, polydipsia and goiter NEURO: No history of headaches, syncope, paralysis, seizures or tremors PHYSICAL EXAM BP 126/82 Pulse 79 Resp 16 Ht 176.5 cm (5' 9.49) Wt 85.7 kg (189 lb) SpO2 94% BMI 27.52 kg/m GENERAL: well appearing, alert, in no acute distress CARDIOVASCULAR: regular rate and rhythm. No murmur, rubs or gallops. PULMONARY: clear to auscultation, no wheezing, rhonchi, or crackles ABDOMEN: soft, non-tender, non-distended, no masses or organomegaly EXTREMITY: no lower extremity edema. No skin discoloration. Back: + tenderness right paralumbar and SI. ASSESSMENT/PLAN: 1. Right-sided low back pain without sciatica, unspecified chronicity - ICD9: 724.2, ICD10: M54.50 (primary diagnosis) Will continue to monitor. Will work on gait and try to walk on more even road. Massage. 2. ED (erectile dysfunction) of organic origin - ICD9: 607.84, ICD10: N52.9 refillL - SILDENAFIL 100 MG TABLET 3. Encounter for immunization - ICD9: V03.89, ICD10: Z23 - INFLUENZA VACCINE, PRSV FREE, AGE 65+ YR, HIGH DOSE, QUADRIVALENT (FLUZONE HIGH-DOSE) Discussed treatment plan and patient voices understanding. Patient's questions answered appropriately. Medications and potential side effects were discussed and patient voices understanding. Return to the office as scheduled or as needed for worsening/no improvement. Annalisa Lindsay APRN.JENS documented in this encounter [facility] 01-05-2023 Instructions Annalisa Lindsay APRN.CNP - 01/05/2023 1:11 PM EST Flu shot today. Let us know if back is no better. Labs before next visit. Health Promotion: - Eat healthy -- go to [employer]gov to get started - Have a yearly physical - Get at least 30 minutes of physical activity daily - Get at least 7 to 8 hours of sleep each night - Reach and maintain a healthy weight - Get help to quit or don't start smoking - Limit alcohol use to one drink or less - Do not use illegal drugs or misuse prescription drugs - Wear a helmet when riding a bike and wear protective gear for sports - Wear a seatbelt in cars and not text and drive - Wear sunscreen Screening schedule The following prevention plan is recommended: RSV Vaccine(1 - 1-dose 60+ series) Never done Advance Directive Discussion due on 03/01/2022 Depression Assessment due on 03/01/2022 Influenza Vaccine(1) due on 10/30/2022 Covid-19 Vaccine( season) due on 10/30/2022 WHAT YOU CAN DO TO PREVENT FALLS Many falls can be prevented. By making some changes, you can lower your chances of falling. Four things YOU can do to prevent falls for you* and your caregiver 1. Begin a regular exercise program Exercise is one of the most important ways to lower your chances of falling. It makes you stronger and helps you feel better. Exercises that improve balance and coordination (like Jatin Chi) are the most helpful. Lack of exercise leads to weakness and increases your chances of falling. Ask your doctor or health care provider about the best type of exercise program for you. 2. Have your health care provider review your medicines Have your doctor or pharmacist review all the medicines you take, even inju-rjs-iakkhpy medicines. As you get older, the way medicines work in your body can change. Some medicines, or combinations of medicines, can make you sleepy or dizzy and can cause you to fall. 3. Have your vision checked Have your eyes checked by an eye doctor at least once a year. You may be wearing the wrong glasses or have a condition like glaucoma or cataracts that limits your vision. Poor vision can increase your chances of falling. 4. Make your home safer About half of all falls happen at home. To make your home safer: Remove things you can trip over (like papers, books, clothes, and shoes) from stairs and places where you walk. Remove small throw rugs or use double-sided tape to keep the rugs from slipping. Keep items you use often in cabinets you can reach easily without using a step stool. Have grab bars put in next to your toilet and in the tub or shower. Use non-slip mats in the bathtub and on shower floors. Improve the lighting in your home. As you get older, you need brighter lights to see well. Hang light-weight curtains or shades to reduce glare. Have handrails and lights put in on all staircases. Wear shoes both inside and outside the house. Avoid going barefoot or wearing slippers. For more information, contact: Centers for Disease Control and Prevention www.cdc.gov/injury * This information may not apply if you have certain medical conditions. Screening schedule The following prevention plan is recommended: RSV Vaccine(1 - 1-dose 60+ series) Never done Advance Directive Discussion due on 03/01/2022 Depression Assessment due on 03/01/2022 Influenza Vaccine(1) due on 10/30/2022 WHAT YOU CAN DO TO PREVENT FALLS Many falls can be prevented. By making some changes, you can lower your chances of falling. Four things YOU can do to prevent falls for you* and your caregiver 1. Begin a regular exercise program Exercise is one of the most important ways to lower your chances of falling. It makes you stronger and helps you feel better. Exercises that improve balance and coordination (like Jatin Chi) are the most helpful. Lack of exercise leads to weakness and increases your chances of falling. Ask your doctor or health care provider about the best type of exercise program for you. 2. Have your health care provider review your medicines Have your doctor or pharmacist review all the medicines you take, even uemk-rdz-obmpvyo medicines. As you get older, the way medicines work in your body can change. Some medicines, or combinations of medicines, can make you sleepy or dizzy and can cause you to fall. 3. Have your vision checked Have your eyes checked by an eye doctor at least once a year. You may be wearing the wrong glasses or have a condition like glaucoma or cataracts that limits your vision. Poor vision can increase your chances of falling. 4. Make your home safer About half of all falls happen at home. To make your home safer: Remove things you can trip over (like papers, books, clothes, and shoes) from stairs and places where you walk. Remove small throw rugs or use double-sided tape to keep the rugs from slipping. Keep items you use often in cabinets you can reach easily without using a step stool. Have grab bars put in next to your toilet and in the tub or shower. Use non-slip mats in the bathtub and on shower floors. Improve the lighting in your home. As you get older, you need brighter lights to see well. Hang light-weight curtains or shades to reduce glare. Have handrails and lights put in on all staircases. Wear shoes both inside and outside the house. Avoid going barefoot or wearing slippers. For more information, contact: Centers for Disease Control and Prevention www.cdc.gov/injury * This information may not apply if you have certain medical conditions. documented in this encounter [facility] 08-18-2022 History of Present illness Narrative Radiology Service Progress Note PATIENT NAME: Cameron Forbes DATE OF SERVICE: August 18, 2022 TIME: 11:34 AM PATIENT IDENTITY VERIFICATION COMPLETED USING TWO (2) IDENTIFIERS: Name and Date of confirmed by patient verbally. FALL SCREENING: Has the patient had 2 falls in the last year or 1 fall with injury or currently using an Ambulatory Assistive Device (Walker, Cane, Wheelchair, Crutches, etc.)? No PATIENT GENDER DATA: Male PATIENT RELEVANT IMPLANT DATA REVIEWED: Yes RADIOLOGY DEPARTMENT: General X-ray: Exam(s) Completed: Spine X-Ray(s): Lumbar AP / LAT / L5-S1 PERIPHERAL IV DATA: Not applicable SIGNED BY: RT Anali(Ralph) August 18, 2022 11:34 AM documented in this encounter [facility] 08-18-2022 Instructions Annalisa Lindsay APRN.CNP - 08/18/2022 11:25 AM EDT Get the xray. Routine antiinflammatories for a week. Let us know if no better or worsening. documented in this encounter [facility] 08-18-2022 History of Present illness Narrative This is a 67 year old male who presents today with: Patient presents with: Acute Visit: R hip x 5 months; fell on the ice in March; using otc pain relievers without much relief HISTORY OF PRESENT ILLNESS: Cameron Forbes is a 67 year old male. Patient presents with: Acute Visit: R hip x 5 months; fell on the ice in March; using otc pain relievers without much relief Fell on some ice back in March. He continues to have some right lower back/hip pain. Provoked by certain movements. Occ ibuprofen/naproxen. Sometimes some tylenol PM. Sometimes a low-dose ASA. Describes pain in the right lower back. No radiation of the pain. No n/t. No loss of bowel/bladder. Very active lifestyle and does not impede on lifestyle. Exercises regularly. Did stop planking d/t injury. PAST MEDICAL HISTORY: PAST MEDICAL HISTORY Diagnosis Date Diverticulosis of colon (without mention of hemorrhage) Internal hemorrhoids without mention of complication PAST SURGICAL HISTORY Procedure Laterality Date COLONOSCOPY FLX DX W/COLLJ SPEC WHEN PFRMD 10/05/2005 Colonoscopy COLONOSCOPY FLX DX W/COLLJ SPEC WHEN PFRMD N/A 12/17/2014 Colonoscopy to repeat in 10 years PAST SURGICAL HISTORY OF age early 20's hemorrhoid surgery SIGMOIDOSCOPY FLX DX W/COLLJ SPEC BR/WA IF PFRMD 03/10/1999 Sigmoidoscopy ALLERGIES Patient has no known allergies. MEDICATIONS Current Outpatient Medications Medication Sig sildenafil (VIAGRA) 100 mg tablet Take 1 tablet by mouth as needed. multivitamin tablet Take 1 tablet by mouth once daily. No current facility-administered medications for this visit. FAMILY HISTORY Problem Relation Age of Onset Hypertension Mother Ischemic Heart Disease Mother late 60's, [place] 86 Hypertension Father Breast Cancer Sister Prostate Cancer Brother Coronary Artery Disease Brother Hyperlipidemia Brother Ischemic Heart Disease Paternal Uncle age 50-51 Colon Cancer Other none Prostate Cancer Other none Social History Tobacco Use Smoking status: Never Smokeless tobacco: Never Substance Use Topics Alcohol use: Yes Comment: RARELY Drug use: No EXAM: BP 144/92 Pulse 78 Resp 16 SpO2 95% PHYSICAL EXAM: General Appearance: Well appearing, alert, in no acute distress, well-hydrated, well nourished.. Skin: Skin color, texture, turgor normal, no suspicious rashes or lesions. Head: Normocephalic, no masses, lesions, tenderness or abnormalities. Eyes: Anicteric sclera. Extraocular movements are intact. . Back:no pain to palpation of vertebrae, good flexion and extension, good range of motion, no muscle tenderness, reflexes are 2+ and symmetric, motor and sensory appear to be normal, negative SLR test, no evidence of scoliosis. Unable to induce pain w/ palpiation. Lungs: Lungs clear to auscultation. No wheezing, rhonchi, rales.. Heart: RRR without murmur, gallop, or rubs. No ectopy. Extremities: No deformities, edema, skin discoloration, clubbing or cyanosis. Good capillary refill. ROM to bilateral hips intact. . Neurologic: Gait normal. Reflexes normal and symmetric. Sensation grossly intact.. ASSESSMENT/PLAN: 1. Right-sided low back pain without sciatica, unspecified chronicity - ICD9: 724.2, ICD10: M54.50 Ongoing for 5 months. Will get imaging to r/o any remote fx. Ice Stretching. Routine nsaids X 1 week. Notify provider if no better/worsening. - XR LUMBAR GENERAL 3V AP/LAT/L5-S1 Discussed treatment plan and patient voices understanding. Patient's questions answered appropriately. Medications and potential side effects were discussed and patient voices understanding. Return to the office as scheduled or as needed for worsening/no improvement. Annalisa Lindsay APRN.JENS documented in this encounter [facility] 01-16-2022 History of Present illness Narrative Cameron Forbes is a 66 year old male here for a Medicare Subsequent Annual Wellness Visit Health Risk Assessment In general, health is: Very good Concerns with tiredness, difficulties with sexual function, balance, teeth/dentures: Not at all [place] anxious, stressed, angry, irritable, lonely, isolated, or had thoughts of hurting themself: Not at all Has little interest or pleasure in doing things: Not at all Bothered by feeling down, depressed, or hopeless: Not at all Needs help with grocery shopping, cooking, housework, bathing, grooming, dressing, eating, sitting or standing, walking, using the toilet, handling finances, taking medications, using the telephone, or driving: No Following safety precautions in the home environment and vehicle: removed throw rugs from floors, installed grab bars in the bathroom, handrails in stairwells, having adequate lighting, wearing seatbelt at all times?: Yes Smokes cigarettes, vapes, or chew tobacco: No Eats healthy foods including fruits, vegetables, whole grains, and fiber-rich foods: Nearly every day Number of days per week engages in exercise: 7 days, walking 4.3 miles per day. Has lost 10 lbs in last year with exercise. Average alcohol consumption: Monthly or less Current Providers Specialists: I have reviewed specialist-related care of the patient in the medical record. Current care team: Patient Care Team: Issa Vidales MD as PCP - General (Family Medicine) Outside specialists seen: has an appt at the [facility] for optometry. Medical/Family history review Reviewed and updated problem list, medical/surgical/family/social history, medications, and allergies. Brother now with a hx of prostate cancer. Opioid use review Patient is not currently using opioids. Depression screening Depression Screening PHQ-2 Score RAMONE-2 Total Score 01/16/2022 0 - Depression screening tool completed and reviewed. Based on score and interview, patient is not at risk for depression. Screening tool discussed with patient, and I recommended no further intervention at this time. Cognitive screening Mini Cog Score: 5 Cognitive screening reviewed and no further action needed (score 3-5) Functional Observation Was the patient's timed Up & Go test unsteady or ? 12 seconds? No Advance Care Planning End of Life planning discussed, including patient's advanced directive wishes: Yes is his surrogate. Health Maintenance PNEUMOCOCCAL: 65+(1 - PCV) Never done COVID-19 VACCINE(3 - Booster for Moderna series) due on 01/16/2021 INFLUENZA(1) due on 10/30/2021 REVIEW OF SYSTEMS GENERAL: No weight loss, malaise or fevers NECK: Negative for lumps, goiter, pain and significant neck swelling RESPIRATORY: Negative for cough, hemoptysis, wheezing, COPD, dyspnea or shortness of breath CARDIOVASCULAR: Negative for chest pain, leg swelling, hypertension, CHF or palpitations GI: No nausea, vomiting, or diarrhea : No history of dysuria, frequency or incontinence SKIN: Negative for lesions, rash, and itching Ortho: knees were bothering him. Some hand numbness. Discussed using bracing. ENDO: had us which was ok of his thyroid. Measurements BP 110/72 Temp 73 Wt 184 lb (83.5kg) SpO2 97% Visual acuity: follows with optometry/ophthalmology Hearing Evaluation: within normal limits PHYSICAL EXAM: GEN: pleasant, no acute distress, alert HEENT: PERRL, EOMI, MMM NECK: supple, no lymphadenopathy, no thyromegaly HEART: regular rate, regular rhythm, no murmurs LUNGS: clear to auscultation, no wheezes or crackles, no increased WOB ABD: soft, non-distended, no masses palpated, non-tender EXT: no clubbing, no cyanosis, no edema Assessment/Plan See orders. documented in this encounter [facility] 04-08-2017 History of Past i llness Narrative Problem Noted Date Resolved Date Chronic left shoulder pain 04/08/201701/16 Chronic pain of right knee 07/16/201501/16 Dizziness and giddiness 06/06/2014 01/17/20 22 Routine general medical exam ination at a health care facility 10/06/2010 07/08/2012 Overview: 10/06/2010, establish care -- former patient of Dr. Putnam --> Dr. 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 Putnam --> Dr. 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 Putnam --> Dr. Kiran Pain in limb 09/14/2008 07/15/2020 Other specified congenital anomaly of skin 09/14/2008 01/16/2022 documented as of this encounter (statuses as of 10/10/2022) [facility] History of Past illness Narrative* Problem Noted Date Diagnosed Date Resolved Date Chronic left shoulder pain 04/08/2017 1 03/18/2021 Chronic pain of right knee 07/16/201503/18/2021 Dizziness and giddiness 06/06/201412/30 Routine general medical exam ination at a health care facility 10/06/2010 07/08/2012 Overview: 10/06/2010aidee care -- former patient of Dr. Putnam --> Dr. Kiran Pain in limb 09/14/2008 07/15/2020 Other specified congenital anomaly of skin 09/14/2008 01/16/2022 documented as of this encounter (statuses as of 01/06/2023) [facility] Diagnosis Encounter for immunization- Primary Need for other specified prophylactic vaccination against single bacterial disease Family history of prostate cancer Family history of malignant neoplasm of prostate Need for vaccination Need for prophylactic vaccination and inoculation against unspecified single disease Well adult exam Routine general medical examination at a health care facility Multiple thyroid nodules Nontoxic multinodular goiter Screening for prostate cancer Special screening for malignant neoplasm of prostate Mixed hyperlipidemia ED (erectile dysfunction) of organic origin Impotence of organic origin [facility] Diagnosis Right-sided low back pain without sciatica, unspecified chronicity- Primary [facility] Diagnosis Right-sided low back pain without sciatica, unspecified chronicity- Primary ED (erectile dysfunction) of organic origin Impotence of organic origin Encounter for immunization Need for other specified prophylactic vaccination against single bacterial disease Medicare annual wellness visit, subsequent Routine general medical examination at a health care facility [facility] Diagnosis Chronic midline low back pain without sciatica- Primary Screening for prostate cancer Special screening for malignant neoplasm of prostate Elevated LDL cholesterol level Pure hypercholesterolemia DDD (degenerative disc disease), lumbar Degeneration of lumbar or lumbosacral intervertebral disc [facility] Diagnosis Degeneration of lumbar intervertebral disc- Primary Degeneration of lumbar or lumbosacral intervertebral disc DDD (degenerative disc disease), lumbar Degeneration of lumbar or lumbosacral intervertebral disc Chronic midline low back pain without sciatica [facility] Diagnosis Chronic right-sided low back pain without sciatica- Primary Degeneration of lumbar intervertebral disc Degeneration of lumbar or lumbosacral intervertebral disc [facility] Diagnosis Chronic right-sided low back pain without sciatica- Primary Degeneration of lumbar intervertebral disc Degeneration of lumbar or lumbosacral intervertebral disc [facility] Diagnosis Chronic right-sided low back pain without sciatica- Primary Degeneration of lumbar intervertebral disc Degeneration of lumbar or lumbosacral intervertebral disc [facility] Diagnosis Chronic right-sided low back pain without sciatica- Primary Degeneration of lumbar intervertebral disc Degeneration of lumbar or lumbosacral intervertebral disc [facility]* Diagnosis Right-sided low back pain without sciatica, unspecified chronicity [facility] Diagnosis ED (erectile dysfunction) of organic origin Impotence of organic origin [facility]* Diagnosis Wellness examination- Primary Encounter for immunization Need for other specified prophylactic vaccination against single bacterial disease Screening for depression Encounter for screening examination for other mental health and behavioral disorders Medicare annual wellness visit, subsequent Routine general medical examination at a health care facility Screening for abdominal aortic aneurysm Screening for other and unspecified cardiovascular conditions Screening for cholesterol level Screening for lipoid disorders Due next year Special screening for malignant neoplasms, colon Screening for diabetes mellitus Need for hepatitis C screening test Special screening examination for other specified viral diseases Screening for HIV (human immunodeficiency virus) Special screening examination for other specified viral diseases Done- WNL Special screening for malignant neoplasm of prostate Memory changes Memory loss Cognitive changes Other signs and symptoms involving cognition [facility] Diagnosis Rectal bleeding- Primary Hemorrhage of rectum and anus External hemorrhoids External hemorrhoids without mention of complication Internal hemorrhoids Internal hemorrhoids without mention of complication documented in this encounter [facility] note* Diagnosis Screening for colon cancer Special screening for malignant neoplasms, colon Rectal bleeding Hemorrhage of rectum and anus documented in this encounter [facility] note* Diagnosis Screening for colon cancer Special screening for malignant neoplasms, colon documented in this encounter [facility] note* Diagnosis Hemorrhoids, internal, with bleeding- Primary Internal hemorrhoids with other complication documented in this encounter [facility] for referral (narrative)* Diagnostic Procedure Only (Routine) - Closed Specialty Diagnoses / Procedures Referred By Contac t Referred To Contact XR IMAGING Diagnoses Right-sided low back pain without sciatica, unspecified chronicity Procedures XR LUMBAR GENERAL 3V AP/LAT/L5-S1 RADEX SPINE LUMBOSACRAL 2/3 VIEWS Annalisa Lindsay APRN.[employer]NER MACHINE OPERATOR [address] [place] [address] Xr Imaging Referral ID Status Reason Start Date Expiration Date V isits Requested Visits Authorized [id number] Closed Auto-Generate d Referral 08/18/2022 09/17/2023 1 1 [facility] for referral (narrative)* Diagnostic Procedure Only (Routine) - Closed Specialty Diagnoses / Procedures Referred By Contac t Referred To Contact XR IMAGING Diagnoses Right-sided low back pain without sciatica, unspecified chronicity Procedures XR LUMBAR GENERAL 3V AP/LAT/L5-S1 RADEX SPINE LUMBOSACRAL 2/3 VIEWS Annalisa Lindsay APRN.[employer] T[employer]NER MACHINE OPERATOR [address] [place] [address] [place] [address] Referral ID Status Reason Start Date Expiration Date V isits Requested Visits Authorized [id number] Closed Auto-Generate d Referral 08/18/2022 09/17/2023 1 1 [facility] for visit Narrative* Diagnostic Procedure Only (Routine) - Closed Specialty Diagnoses / Procedures Referred By Contac t Referred To Contact XR IMAGING Diagnoses Right-sided low back pain without sciatica, unspecified chronicity Procedures XR LUMBAR GENERAL 3V AP/LAT/L5-S1 RADEX SPINE LUMBOSACRAL 2/3 VIEWS Annalisa Lindsay APRN.[employer] T[employer]NER MACHINE OPERATOR [address] [place] [address] [place] [address] Referral ID Status Reason Start Date Expiration Date V isits Requested Visits Authorized [id number] Closed Auto-Generate d Referral 08/18/2022 09/17/2023 1 1 [facility] for visit Narrative* Outpatient Procedure (Routine) - Closed Specialty Diagnoses / Procedures Referred By Contac t Referred To Contact [facility] Diagnoses Screening for colon cancer Procedures COLONOSCOPY SCREENING COLONOSCOPY FLX DX W/COLLJ SPEC WHEN Casie Finch MD [address] [place] [address] Phone: tel: fax: [facility] [address] [place] [address] Referral ID Status Reason Start Date Expiration Date V isits Requested Visits Authorized [id number] Closed Auto-Generate d Referral 09/04/2024 09/04/2025 1 1 [facility] Reason for Referral Specialty Diagnoses / Procedures Referred By Contac t Referred To Contact [facility] Diagnoses DDD (degenerative disc disease), lumbar Chronic midline low back pain without sciatica Procedures CONSULT TO PHYSICAL THERAPY PHYSICAL THERAPY EVALUATION HIGH COMPLEX 45 MINS Issa Vidales MD [address] [place] [address] [facility] [address] [place] [id number] Referral ID Status Reason Start Date Expiration Date Visits Requested Visits Authorized [id number] Authorized Auto-Generat ed Referral 03/01/2023 02/29/2024 20 20 Summary Purpose Family History No Family History Records Found Advance Directives No Advanced Directives Records Found Additional Source Comments Source Comments (unrecognize d section and content) In the event this informatio n is protected by the Federal Confidentiality of Alcohol and Drug Abuse Patient Records regulations: The Federal rules restrict any use of the information to criminally investigate or prosecute any alcohol or drug abuse patient.[facility] the event this information is protected by the Federal Confidentiality of Alcohol and Drug Abuse Patient Records regulations: The Federal rules restrict any use of the information to criminally investigate or prosecute any alcohol or drug abuse patient.[facility] the event this information is protected by the Federal Confidentiality of Alcohol and Drug Abuse Patient Records regulations: The Federal rules restrict any use of the information to criminally investigate or prosecute any alcohol or drug abuse patient.[facility] the event this information is protected by the Federal Confidentiality of Alcohol and Drug Abuse Patient Records regulations: The Federal rules restrict any use of the information to criminally investigate or prosecute any alcohol or drug abuse patient.[facility] the event this information is protected by the Federal Confidentiality of Alcohol and Drug Abuse Patient Records regulations: The Federal rules restrict any use of the information to criminally investigate or prosecute any alcohol or drug abuse patient.[facility] the event this information is protected by the Federal Confidentiality of Alcohol and Drug Abuse Patient Records regulations: The Federal rules restrict any use of the information to criminally investigate or prosecute any alcohol or drug abuse patient.[facility] the event this information is protected by the Federal Confidentiality of Alcohol and Drug Abuse Patient Records regulations: The Federal rules restrict any use of the information to criminally investigate or prosecute any alcohol or drug abuse patient.[facility] the event this information is protected by the Federal Confidentiality of Alcohol and Drug Abuse Patient Records regulations: The Federal rules restrict any use of the information to criminally investigate or prosecute any alcohol or drug abuse patient.[facility] the event this information is protected by the Federal Confidentiality of Alcohol and Drug Abuse Patient Records regulations: The Federal rules restrict any use of the information to criminally investigate or prosecute any alcohol or drug abuse patient.[facility] the event this information is protected by the Federal Confidentiality of Alcohol and Drug Abuse Patient Records regulations: The Federal rules restrict any use of the information to criminally investigate or prosecute any alcohol or drug abuse patient.[facility] the event this information is protected by the Federal Confidentiality of Alcohol and Drug Abuse Patient Records regulations: The Federal rules restrict any use of the information to criminally investigate or prosecute any alcohol or drug abuse patient.[facility] the event this information is protected by the Federal Confidentiality of Alcohol and Drug Abuse Patient Records regulations: The Federal rules restrict any use of the information to criminally investigate or prosecute any alcohol or drug abuse patient.[facility] the event this information is protected by the Federal Confidentiality of Alcohol and Drug Abuse Patient Records regulations: The Federal rules restrict any use of the information to criminally investigate or prosecute any alcohol or drug abuse patient.[facility] the event this information is protected by the Federal Confidentiality of Alcohol and Drug Abuse Patient Records regulations: The Federal rules restrict any use of the information to criminally investigate or prosecute any alcohol or drug abuse patient.[facility] the event this information is protected by the Federal Confidentiality of Alcohol and Drug Abuse Patient Records regulations: The Federal rules restrict any use of the information to criminally investigate or prosecute any alcohol or drug abuse patient.[facility] WestIn the event this information is protected by the Federal Confidentiality of Alcohol and Drug Abuse Patient Records regulations: The Federal rules restrict any use of the information to criminally investigate or prosecute any alcohol or drug abuse patient.[facility] WestIn the event this information is protected by the Federal Confidentiality of Alcohol and Drug Abuse Patient Records regulations: The Federal rules restrict any use of the information to criminally investigate or prosecute any alcohol or drug abuse patient.[facility] WestIn the event this information is protected by the Federal Confidentiality of Alcohol and Drug Abuse Patient Records regulations: The Federal rules restrict any use of the information to criminally investigate or prosecute any alcohol or drug abuse patient.[facility] WestIn the event this information is protected by the Federal Confidentiality of Alcohol and Drug Abuse Patient Records regulations: The Federal rules restrict any use of the information to criminally investigate or prosecute any alcohol or drug abuse patient.[facility] WestIn the event this information is protected by the Federal Confidentiality of Alcohol and Drug Abuse Patient Records regulations: The Federal rules restrict any use of the information to criminally investigate or prosecute any alcohol or drug abuse patient.[facility] WestIn the event this information is protected by the Federal Confidentiality of Alcohol and Drug Abuse Patient Records regulations: The Federal rules restrict any use of the information to criminally investigate or prosecute any alcohol or drug abuse patient.[facility]In the event this information is protected by the Federal Confidentiality of Alcohol and Drug Abuse Patient Records regulations: The Federal rules restrict any use of the information to criminally investigate or prosecute any alcohol or drug abuse patient.[facility] WestIn the event this information is protected by the Federal Confidentiality of Alcohol and Drug Abuse Patient Records regulations: The Federal rules restrict any use of the information to criminally investigate or prosecute any alcohol or drug abuse patient.[facility]In the event this information is protected by the Federal Confidentiality of Alcohol and Drug Abuse Patient Records regulations: The Federal rules restrict any use of the information to criminally investigate or prosecute any alcohol or drug abuse patient.[facility]In the event this information is protected by the Federal Confidentiality of Alcohol and Drug Abuse Patient Records regulations: The Federal rules restrict any use of the information to criminally investigate or prosecute any alcohol or drug abuse patient.[facility] WestIn the event this information is protected by the Federal Confidentiality of Alcohol and Drug Abuse Patient Records regulations: The Federal rules restrict any use of the information to criminally investigate or prosecute any alcohol or drug abuse patient.[facility] Reason for Visit (unrecogniz ed section and content) Reason Comments Physical Therapy PT Discharge Specialty Diagnoses / Procedures Referred By Contac t Referred To Contact PHYSICAL THERAPY Diagnoses DDD (degenerative disc disease), lumbar Chronic midline low back pain without sciatica Procedures CONSULT TO PHYSICAL THERAPY PHYSICAL THERAPY EVALUATION HIGH COMPLEX 45 MINS Issa Vidales MD [address] [place] [address] Pt [facility] [address] [place] [address] Referral ID Status Reason Start Date Expiration Date Visits Requested Visits Authorized [id number] Authorized Auto-Generat ed Referral 03/01/2023 02/29/2024 20 20 Reason Comments Physical Therapy PT Progress Note Reason Comments Physical Therapy Specialty Diagnoses / Procedures Referred By Contac t Referred To Contact [facility] Diagnoses DDD (degenerative disc disease), lumbar Chronic midline low back pain without sciatica Procedures CONSULT TO PHYSICAL THERAPY PHYSICAL THERAPY EVALUATION HIGH COMPLEX 45 MINS Issa Vidales MD [address] [place] [address] [facility] [address] [place] [address] Reason Comments Physical Reason Comments Acute Visit R hip x 5 months; fe ll on the ice in March; using otc pain relievers without much relief Reason Comments Medicare Wellness Exam Reason Onset Date Comments Population Health Navigation Outreach 06/29/2023 [place] Annual Wellness Visit Reason Onset Date Comments Population Health Navigation Outreach 07/28/2023 [place] AWV/HCC and care gaps Reason Comments Back Pain Reason Comments PT Eval Reason Onset Date Comments Refill Request 01/11/2024 Reason Comments Rectal Problem Reason Comments Rectal Bleeding Intermittent rectal bleeding X 3 months. Hx of Hemorrhoids. Reason Onset Date Comments Results 09/04/2024 Reason Comments Consult Specialty Diagnoses / Procedures Referred By Contac t Referred To Contact General Surgery Diagnoses Rectal bleeding Procedures CONSULT TO GENERAL SURGERY OFFICE/OUTPATIENT [facility] MDM 60 MINUTES Billie Aceves MD [address] [place] [address] Phone: tel: fax: Referral ID Status Reason Start Date Expiration Date V isits Requested Visits Authorized [id number] Closed PCP Requested Referral 08/30/2024 08/30/2025 1 1 Reason Comments Hemorrhoids Care Teams (unrecognized sec tion and content) Steel Estimator Relationship Specialty Start Date End Date Issa Vidales MD [address] [place], [place] [address] PCP - General Family Medicine 07/08/12 Steel Estimator Relationship Specialty Start Date End Date Issa Vidales MD [address] [facility] [place] [address] PCP - General Family Medicine 07/08/12 Steel Estimator Relationship Specialty Start Date End Date Issa Vidales MD [address] [facility] [place] [address] PCP - General Family Medicine 07/08/12 Steel Estimator Relationship Specialty Start Date End Date Issa Vidales MD [address] [facility] [place] [address] PCP - General Family Medicine 07/08/12 Steel Estimator Relationship Specialty Start Date End Date Issa Vidales MD [address] [facility] [place] [address] PCP - General Family Medicine 07/08/12 Steel Estimator Relationship Specialty Start Date End Date Issa Vidales MD [address] [place] [address] PCP - General Family Medicine 07/08/12 Steel Estimator Relationship Specialty Start Date End Date Issa Vidales MD [address] [facility] [place] [address] PCP - General Family Medicine 07/08/12 Steel Estimator Relationship Specialty Start Date End Date Issa Vidales MD [address] [facility] [place] [address] PCP - General Family Medicine 07/08/12 Steel Estimator Relationship Specialty Start Date End Date Issa Vidales MD [address] [facility] [place] [address] PCP - General Family Medicine 07/08/12 Steel Estimator Relationship Specialty Start Date End Date Issa Vidales MD [address] [facility] [place] [address] PCP - General Family Medicine 07/08/12 Steel Estimator Relationship Specialty Start Date End Date Issa Vidales MD [address] [facility] [place] [address] PCP - General Family Medicine 07/08/12 Steel Estimator Relationship Specialty Start Date End Date Issa Vidales MD [address] [facility] [place] [address] PCP - General Family Medicine 07/08/12 Steel Estimator Relationship Specialty Start Date End Date Issa Vidales MD [address] [facility] [place] [address] PCP - General Family Medicine 07/08/12 Steel Estimator Relationship Specialty Start Date End Date Issa Vidales MD [address] [facility] [place] [address] PCP - General Family Medicine 07/08/12 Annalisa Lindsay, PAYROLL ACCOUNTANT.CUFF TURNER MACHINE OPERATOR [address] [place] [address] [employer] T[facility] Family Medicine 02/07/24 Johanna Oliver, PAYROLL ACCOUNTANT.CUFF TURNER MACHINE OPERATOR [address] [facility] [place] [address] [facility] [employer] [facility] Family Medicine 02/07/24 Steel Estimator Relationship Specialty Start Date End Date Issa Vidales MD [address] [facility] [place] [address] PCP - General Family Medicine 07/08/12 Annalisa Lindsay, PAYROLL ACCOUNTANT.CUFF TURNER MACHINE OPERATOR [address] [place] [address] [facility] [employer] [facility] Family [facility] 02/07/24 Johanna Oliver APRN.CUFF TURNER MACHINE OPERATOR [address] [facility] [place] [address] [facility] [employer] [facility] 02/07/24 Steel Estimator Relationship Specialty Start Date End Date Issa Vidales MD [address] [facility] [place] [address] PCP - General Family Medicine 07/08/12 Annalisa Lindsay APRN.CUFF TURNER MACHINE OPERATOR [address] [place] [address] [facility] [employer] [facility] Family Medicine 02/07/24 Johanna Oliver APRN.CUFF TURNER MACHINE OPERATOR [address] [facility] [place] [address] [facility] 02/07/24 Steel Estimator Relationship Specialty Start Date End Date Issa Vidales MD [address] [facility] [place] [address] PCP - General Family Medicine 07/08/12 Annalisa Lindsay APRN.CUFF TURNER MACHINE OPERATOR [address] [place] [address] [employer] [facility] Family Medicine 02/07/24 Johanna Oliver PAYROLL ACCOUNTANT.CUFF TURNER MACHINE OPERATOR [address] [facility] [place] [address] [facility] 02/07/24 Steel Estimator Relationship Specialty Start Date End Date Issa Vidales MD [address] [facility] [place] [address] PCP - General Family Medicine 07/08/12 Annalisa Lindsay APRN.CUFF TURNER MACHINE OPERATOR [address] [place] [address] [facility] [employer] T[facility] Family [facility] 02/07/24 Johanna Oliver APRN.CUFF TURNER MACHINE OPERATOR [address] [place] [address] [facility] 02/07/24 Steel Estimator Relationship Specialty Start Date End Date Issa Vidales MD [address] [place] [address] PCP - General Family Medicine 07/08/12 Annalisa Lindsay APRN.CUFF TURNER MACHINE OPERATOR [address] [place] [address] [facility] 02/07/24 Johanna Oliver PAYROLL ACCOUNTANT.CUFF TURNER MACHINE OPERATOR [address] [place] [address] [facility] 02/07/24 Steel Estimator Relationship Specialty Start Date End Date Issa Vidales MD [address] [place] [address] PCP - General Family Medicine 07/08/12 Annalisa Lindsay APRN.CUFF TURNER MACHINE OPERATOR [address] [place] [address] [employer] [facility] [employer] [facility] Family Medicine 02/07/24 Johanna Oliver PAYROLL ACCOUNTANT.CUFF TURNER MACHINE OPERATOR [address] [place] [address] [facility] [employer] [facility] 02/07/24 (unrecognized sect ion and content) No Status Records Found INFORMATION SOURCE (unrecogn ized section and content) DATE CREATED AUTHOR 12/09/2024 [facility] FOR RECORDS PERTAINING TO PATIENTS WHO ARE OR HAVE BEEN ENROLLED IN A CHEMICAL DEPENDENCY/SUBSTANCEABUSE PROGRAM, SOME INFORMATION MAY BE OMITTED. This clinical summary was aggregated from multiple sources. Caution should be exercised in using it in the provision of clinical care. This summary normalizes information from multiple sources, and as a consequence, information in this document may materially change the coding, format and clinical context of patient data. In addition, data may be omitted in some cases. CLINICAL DECISIONS SHOULD BE BASED ON THE PRIMARY CLINICAL RECORDS. [employer] provides no warranty or guarantee of the accuracy or completeness of information in this document.
[2025-01-14] MEDS: Cefazolin 2 GM in 0.9% Normal Saline (100mL Bag) 100 ML IV (15:36)
--- NOTE | 2025-01-14 16:08 | RAD_ITS ---
PROCEDURE: FINGER(S) MIN 2 VIEWS 01/14/2025 REASON FOR EXAM: 5th digit FINGER REDUCTION TECHNIQUE: Procedure Code: RADFIN Modality: DX Procedure: FINGER(S) MIN 2 VIEWS Laterality: Right COMPARISON: Pre reduction views from earlier today. FINDINGS: Bones: Much improved, near anatomic alignment is seen at the fracture site in the midshaft of the proximal phalanx of the 5th digit Joints: No joint involvement. Soft tissues: 5th digit soft tissue swelling. Other: RAD/Finger(s) Min 2 Views IMPRESSION: Satisfactory reduction of 5th digit fracture as above. Reading [facility]
[2025-01-14] MEDS: Lidocaine 1% (20 ml mdv) 20 ML Vial 10 ML INFILT (16:15)
[2025-01-14 17:06] VITALS: BP 125/78; PULSE 62; RESP 16; TEMP 36.1; O2SAT 99
== END 2025-01-14 17:06 | disposition home or self-care (01) ==
PROVIDERS: Emergency Provider Emergency Medicine; PCP Family Medicine; Visit Provider Emergency Medicine
DX: S62.606B Fracture of unspecified phalanx of right little finger, initial encounter for open fracture (principal); X58.XXXA Exposure to other specified factors, initial encounter; Z23 Encounter for immunization
CPT/HCPCS: 73130; 73140; 90471; 90715; 96365; 99283